=== PATIENT | female | born 1990 | race Caucasian/White ===

== ENCOUNTER 2017-02-10 11:32 | Emergency (ER) | payer OTHER ==
[2017-02-10] MEDS ORDERED: ACETAMINOPHEN TAB 500 MG TAB PO STA (12:14)
[2017-02-10] MEDS ORDERED: IBUPROFEN 600 MG TAB PO STA (12:14)
--- NOTE | 2017-02-10 12:29 | ED ---
ENT HPI - General Chief complaint: ENT Stated complaint: throat pain Time Seen by Provider: 02/10/17 11:59 Source: patient, RN notes reviewed, old records reviewed Mode of arrival: ambulatory Limitations: no limitations - History of Present Illness Initial comments: This is a pleasant 26-year-old female with chief complaint of sore throat and fevers for the past 4 days. She reports that she's noticed some white exudates over her tonsils. She states that she usually gets strep throat twice a year. She states that she has been taking Motrin Tylenol the last dose was at 6 in the morning. Patient reports that she feels very chilled and sweating. Patient states she has no history of sick contacts. Denies any history of mononucleosis. She denies any travel history. Patient denies any recent fever, chills, shortness of breath, chest pain, back pain, abdominal pain, nausea vomiting, numbness or tingling, dysuria or hematuria, constipation or diarrhea, headaches or visual changes, or any other current symptoms - Related Data Home Medications Medication Instructions Recorded Confirmed [id number] Acid 1 tab PO DAILY 05/20/14 06/15/15 [-U Capsule (formulary)] Cephalexin [Keflex] 500 mg PO Q6HR 06/14/15 06/15/15 Previous Rx's Medication Instructions Recorded Acetaminophen-Codeine 300-30mg 2 each PO Q4HR PRN #30 tab 06/17/15 [Tylenol w/codeine #3] Ibuprofen [Motrin] 600 mg PO Q6HR PRN #30 tab 06/17/15 Azithromycin [Zithromax Z-pack] 250 mg PO DIRECTED #6 tab 02/10/17 Allergies Allergy/AdvReac Type Severity Reaction Status Date / Time No Known Allergies Allergy Verified 02/10/17 11:58 Review of Systems ROS Statement: Those systems with pertinent positive or pertinent negative responses have been documented in the HPI. ROS Other: All systems not noted in ROS Statement are negative. Past Medical History Past Medical History: No Reported History Additional Past Medical History / Comment(s): kidney stones and UTI's. Obstetric history: First 2 pregnancies were delivered by . O+, abs neg, Rub Imm, RPR NR, Hep B neg, HIV NR. History of Any Multi-Drug Resistant Organisms: None Reported Past Surgical History: Section Past Anesthesia/Blood Transfusion Reactions: Previous Problems w/ Anesthesia, Postoperative Nausea & Vomiting (PONV) Additional Past Anesthesia/Blood Transfusion Reaction / Comment(s): drop in blood pressure, nausea,vommitting, loss of consciousness Past Psychological History: No Psychological Hx Reported, Anxiety, Depression Smoking Status: Never smoker Past Alcohol Use History: None Reported Past Drug Use History: Marijuana - Past Family History Father Family Medical History: Coronary Artery Disease (CAD) General Exam - General Exam Comments Initial Comments: Pleasant 26-year-old female. No acute distress. Limitations: no limitations General appearance: alert, in no apparent distress Head exam: Present: atraumatic, normocephalic, normal inspection Eye exam: Present: normal appearance, PERRL, EOMI. Absent: scleral icterus, conjunctival injection, periorbital swelling ENT exam: Present: normal exam, mucous membranes moist. Absent: normal oropharynx (Erythematous and enlarged bilateral tonsils. Evidence of light exudates over bilateral tonsils.) Neck exam: Present: normal inspection, lymphadenopathy (Right-sided anterior cervical lymphadenopathy). Absent: tenderness, meningismus Respiratory exam: Present: normal lung sounds bilaterally. Absent: respiratory distress, wheezes, rales, rhonchi, stridor Cardiovascular Exam: Present: regular rate, normal rhythm, normal heart sounds. Absent: systolic murmur, diastolic murmur, rubs, gallop, clicks GI/Abdominal exam: Present: soft, normal bowel sounds. Absent: distended, tenderness, guarding, rebound, rigid Extremities exam: Present: normal inspection, full ROM, normal capillary refill. Absent: tenderness, pedal edema, joint swelling, calf tenderness Back exam: Present: normal inspection Neurological exam: Present: alert, oriented X3, CN II-XII intact Psychiatric exam: Present: normal affect, normal mood Skin exam: Present: warm, dry, intact, normal color. Absent: rash Course Vital Signs 02/10/17 11:54 Temperature 99.8 F H Pulse Rate 119 H Respiratory 18 Rate Blood Pressure 133/90 O2 Sat by Pulse 99 Oximetry Medical Decision Making - Medical Decision Making This is a pleasant 26-year-old female with chief complaint of sore throat and fevers for the past 4 days. She reports that she's noticed some white exudates over her tonsils. She states that she usually gets strep throat twice a year. She states that she has been taking Motrin Tylenol the last dose was at 6 in the morning. Patient reports that she feels very chilled and sweating. No significant enlargement of bilateral tonsils, anterior cervical lymphadenopathy as well as tonsillar exudates. Patient's rapid strep is negative. She was given Motrin and Tylenol for fever as well as a large last water. Patient will be started on azithromycin given clinical presentation. Discussed the possibility of mononucleosis. Discussed to rest, increase fluids and alternate her fever medication. Discussed the importance of following up if symptoms continue to progress or worsen. Patient is history plan will comply. - Lab Data Lab Results 02/10/17 Range/Units 12:17 Group A Strep Rapid Negative (Negative) Disposition Clinical Impression: Pharyngitis Disposition: HOME SELF-CARE Condition: Good Instructions: Mononucleosis (ED), Pharyngitis (ED) Additional Instructions: is to rest, increase fluids. Alternate between Motrin and Tylenol every 4 hours. Patient should complete antibiotic prescription. Return to the emergency department if any alarming signs or symptoms occur. Prescriptions: Azithromycin [Zithromax Z-pack] 250 mg PO DIRECTED #6 tab Referrals: Janeth Lu MD [STAFF PHYSICIAN] - 1-2 days Time of Disposition: 12:34
[2017-02-10] MEDS ORDERED: AZITHROMYCIN 500 MG TAB PO STA (12:41)
[2017-02-10 12:57] VITALS: BP 118/74; PULSE 94; RESP 20; TEMP 98.5
== END 2017-02-10 12:57 | disposition home or self-care (01) ==
LOC: EC 11:32
DX: J02.9 Acute pharyngitis, unspecified (principal)
CPT/HCPCS: 87081; 87430; 99283

== ENCOUNTER 2017-02-14 09:01 | Emergency (ER) | payer OTHER ==
[2017-02-14 09:04] VITALS: RESP 18
--- NOTE | 2017-02-14 09:20 | ED ---
ENT HPI - General Chief complaint: ENT Stated complaint: throat pain Time Seen by Provider: 02/14/17 09:09 Source: patient, RN notes reviewed Mode of arrival: ambulatory Limitations: no limitations - History of Present Illness Initial comments: Patient is 26-year-old female presents to the emergency room for evaluation of throat pain. Patient states she was here on Friday with the same symptoms. Patient states they did a strep test was negative. Patient states she was told it could possibly be mono. Patient states that she was placed on a Z-Conrad. Patient states she's on her last pill today and she still continuing to have increasing throat pain. Patient states that she does not feel well. Patient states been having on and off fevers. Patient states her right tonsil is a lot more enlarged. Patient states the pain is radiating up into her right ear. Patient states she took Tylenol and Motrin last night. Patient states she feels nauseous. Patient states she's having 10 out of 10 pain. Patient denies shortness of breath. Patient denies trouble breathing. - Related Data Home Medications Medication Instructions Recorded Confirmed Azithromycin [Zithromax Z-pack] See Taper PO DIRECTED 02/14/17 02/14/17 Previous Rx's Medication Instructions Recorded Amoxicillin/Potassium Clav 1 each PO Q12HR #20 tab 02/14/17 [Augmentin 875-125 Tablet] predniSONE 50 mg PO DAILY #4 tab 02/14/17 Allergies Allergy/AdvReac Type Severity Reaction Status Date / Time No Known Allergies Allergy Verified 02/14/17 09:17 Review of Systems ROS Statement: Those systems with pertinent positive or pertinent negative responses have been documented in the HPI. ROS Other: All systems not noted in ROS Statement are negative. Past Medical History Past Medical History: No Reported History Additional Past Medical History / Comment(s): kidney stones and UTI's. Obstetric history: First 2 pregnancies were delivered by . O+, abs neg, Rub Imm, RPR NR, Hep B neg, HIV NR. History of Any Multi-Drug Resistant Organisms: None Reported Past Surgical History: Section Past Anesthesia/Blood Transfusion Reactions: Previous Problems w/ Anesthesia, Postoperative Nausea & Vomiting (PONV) Additional Past Anesthesia/Blood Transfusion Reaction / Comment(s): drop in blood pressure, nausea,vommitting, loss of consciousness Past Psychological History: No Psychological Hx Reported, Anxiety, Depression Smoking Status: Never smoker Past Alcohol Use History: None Reported Past Drug Use History: Marijuana - Past Family History Father Family Medical History: Coronary Artery Disease (CAD) General Exam - General Exam Comments Initial Comments: Sitting in exam room, no acute distress. Limitations: no limitations General appearance: alert, in no apparent distress Head exam: Present: atraumatic, normocephalic, normal inspection Eye exam: Present: normal appearance Expanded Throat exam: tonsillomegaly (right, no abscess ) Neck exam: Present: normal inspection Respiratory exam: Present: normal lung sounds bilaterally. Absent: respiratory distress Cardiovascular Exam: Present: normal rhythm, tachycardia, normal heart sounds Extremities exam: Present: normal inspection Back exam: Present: normal inspection Neurological exam: Present: alert, oriented X3, CN II-XII intact Psychiatric exam: Present: normal affect, normal mood Skin exam: Present: warm, dry, intact, normal color. Absent: rash Course Vital Signs 02/14/17 02/14/17 09:01 11:00 Temperature 99.5 F 97 F L Pulse Rate 129 H 110 H Respiratory 18 18 Rate Blood Pressure 145/93 137/74 O2 Sat by Pulse 99 100 Oximetry Medical Decision Making - Medical Decision Making Patient is 26-year-old female presents emergency room for evaluation of throat pain. Patient does have an enlarged right tonsil. Patient was also evaluated by Dr. Leon. No abscess noted at this time. Heterophile negative. Patient be placed on Augmentin and prednisone and advised to follow-up with primary care provider. Patient states she understands everything that was discussed with her. Return parameters discussed. - Lab Data Lab Results 02/14/17 Range/Units 09:30 Heterophile Antibody Negative (Negative) Disposition Clinical Impression: Tonsillitis Disposition: HOME SELF-CARE Condition: Good Instructions: Tonsillitis (ED) Additional Instructions: Take antibiotics as directed. Begin taking prednisone tomorrow. Tylenol or Motrin as needed for pain. Saltwater gargles. Please follow up with primary care provider in 1-2 days. If any new symptom arises or symptoms worsen, return to ER as soon as possible. Prescriptions: Amoxicillin/Potassium Clav [Augmentin 875-125 Tablet] 1 each PO Q12HR #20 tab predniSONE 50 mg PO DAILY #4 tab Referrals: None,Stated [Primary Care Provider] - 1-2 days Time of Disposition: 10:34
[2017-02-14] MEDS ORDERED: predniSONE 50 MG TAB PO STA (09:21)
[2017-02-14] MEDS ORDERED: SODIUM CHLORIDE 0.9% 500 ML IV ONE (09:33)
[2017-02-14 11:01] VITALS: BP 137/74; PULSE 110; TEMP 97
== END 2017-02-14 11:01 | disposition home or self-care (01) ==
LOC: EC 09:01
DX: J03.90 Acute tonsillitis, unspecified (principal); R00.0 Tachycardia, unspecified
CPT/HCPCS: 36415; 86308; 99283; 96360; J7512

== ENCOUNTER → 2018-02-26 | Outpatient (CLI) | payer OTHER ==
--- NOTE | 2018-02-26 10:22 | FL ---
EXAMINATION TYPE: FL UGI air DATE OF EXAM: 02/26/2018 COMPARISON: NONE HISTORY: Left upper quadrant abdominal pain and diarrhea TECHNIQUE: A double contrast UGI study is performed. 1 minute and 49 seconds of fluoroscopy time was utilized with 41 images saved. FINDINGS: The esophagus shows normal motility and emptying into the stomach. No evidence of hiatal hernia or s tricture noted. The stomach shows normal distensibility, peristalsis, with diffusely thickened rugal folds. No evide nce of any mass or ulcer disease. Incidentally noted small duodenal diverticulum is seen. No signific ant gastroesophageal reflux was seen during real time performance of this study. The duodenal bulb, sweep, and proximal small bowel loops are unremarkable. IMPRESSION: 1. Hypertrophic thickened gastric rugal folds most commonly relating to underlying gastritis. No foca l ulceration is identified on this examination. 2. Incidentally noted small duodenal diverticulum.
== END | disposition home or self-care (01) ==
LOC: RADFLMAIN 09:29
PROVIDERS: ATTEND Family Medicine
DX: R93.3 Abnormal findings on diagnostic imaging of other parts of digestive tract (principal)
CPT/HCPCS: 74246

== ENCOUNTER → 2018-04-23 | Outpatient (CLI) | payer OTHER ==
--- NOTE | 2018-04-23 08:46 | CT ---
EXAMINATION TYPE: CT abdomen pelvis w con DATE OF EXAM: 04/23/2018 HISTORY: Lt sided pain, hematuria, diarrhea, nausea and vomiting CT DLP: 475.2mGycm Automated Exposure Control for Dose Reduction was Utilized. CONTRAST: CT scan of the abdomen and pelvis is performed with IV Contrast, patient injected with 100 mL of Isov ue 300. COMPARISON: None. FINDINGS: LUNG BASES: There is a calcified benign right granuloma in the posterior basilar segment other right lower lobe. LIVER/GB: No focal mass identified. No cholelithiasis. PANCREAS: No significant abnormality is seen. No ductal dilatation. SPLEEN: No splenomegaly. ADRENALS: No nodularity or thickening. KIDNEYS: There is a 1.0 cm right renal cyst and multiple bilateral renal sinus cysts, left greater th an right. No hydronephrosis.. BOWEL: Incidental note is made of an enteroentero-(small bowel to small bowel) intussusception marked on axial series 3 image 48 and coronal series 7 image 28. This is typically an incidental finding an d results without treatment. However a second site of intussusception is seen within the left upper q uadrant on series 3 image 44 and series 7 image 42 within small bowel. No dilated small bowel or larg e bowel to suggest obstruction. Focal small bowel wall thickening is seen proximally measuring up to 9 mm. Additionally the majority of the small bowel is present within the midline and left abdomen. Te rminal ileum is largely decompressed and therefore limits evaluation of bowel wall thickening, howeve r there is suspicion for bowel wall thickening as contrast is seen proximal and distal to this and johanna wel loops that do not demonstrate bowel wall thickening. No right lower quadrant inflammatory fat str anding is seen. UTERUS/ADNEXA: Approximately 3.7 cm cystic right adnexal lesion is noted that could be further evalua joanne with ultrasound although likely represents a physiologic cyst in this patient's age group. LYMPH NODES: No greater than 1cm abdominal or pelvic lymph nodes are appreciated. OSSEOUS STRUCTURES: No significant abnormality is seen. Punctate probable bone island is present with in the left anterior inferior iliac spine. IMPRESSION: 1. Two sites of small bowel to small bowel intussusception within the left mid abdomen and upper quad rant, most commonly an incidental finding and typically transient. However there is small bowel wall thickening noted and this could represent a lead point from inflammatory or infectious etiology. Much less likely consideration are for other etiologies such as small bowel lymphoma or GIST tumors. Herber elation for inflammatory bowel disease is recommended as a terminal ileum is decompressed and poorly evaluated. 2. 3.7 cm right adnexal lesion, likely physiologic cyst in this patient's age group. If there is furt her concern pelvic ultrasound could be performed.
== END | disposition home or self-care (01) ==
LOC: RADCTMAIN 06:55
PROVIDERS: ATTEND Family Medicine
DX: K56.1 Intussusception (principal); K63.89 Other specified diseases of intestine; N85.9 Noninflammatory disorder of uterus, unspecified; Z88.8 Allergy status to other drugs, medicaments and biological substances
CPT/HCPCS: 74177; Q9967

== ENCOUNTER 2018-10-23 06:59 | Emergency (ER) | payer OTHER ==
[2018-10-23 07:08] VITALS: TEMP 98.3
[2018-10-23 08:11] LABS: Appearance,Urine Cloudy (Clear); Bacteria,Urine Many /hpf; Bilirubin,Urine Negative (Negative); Blood,Urine Small (Negative); Color,Urine Yellow; Glucose,Urine (UA) Negative (Negative); Ketones,Urine 1+ (Negative); Leukocyte Esterase,Urine Large (Negative); Mucus,Urine Moderate /hpf; Nitrite,Urine Positive (Negative); Protein,Urine 1+ (Negative); RBC,Urine 44 /hpf (0-5); Specific Gravity,Urine 1.013 (1.001-1.035); Squamous Epithelial Cell,Urine 14 /hpf (0-4); Urobilinogen,Urine <2.0 mg/dL (<2.0); WBC,Urine >182 /hpf (0-5)
[2018-10-23 08:20] LABS: Basophils % (A) 0 %; Eosinophils # (A) 0.1 k/uL (0-0.7); Eosinophils % (A) 2 %; HCT 40.5 % (34.0-46.0); HGB 13.6 gm/dL (11.4-16.0); Lymphocytes # (A) 1.4 k/uL (1.0-4.8); Lymphocytes % (A) 17 %; MCHC 33.5 g/dL (31.0-37.0); MCV 95.3 fL (80.0-100.0); Mean Platelet Volume 6.8; Monocytes # (A) 0.3 k/uL (0-1.0); Monocytes % (A) 4 %; Neutrophils # (A) 5.9 k/uL (1.3-7.7); Neutrophils % (A) 75 %; Platelet Count 331 k/uL (150-450); RBC 4.25 m/uL (3.80-5.40); RDW 12.4 % (11.5-15.5); WBC 7.9 k/uL (3.8-10.6)
[2018-10-23 08:32] LABS: ALT 36 U/L (9-52); AST 21 U/L (14-36); Albumin 4.4 g/dL (3.5-5.0); Alkaline Phosphatase 77 U/L (38-126); Anion Gap 10 mmol/L; Blood Urea Nitrogen 9 mg/dL (7-17); Calcium 9.6 mg/dL (8.4-10.2); Carbon Dioxide 22 mmol/L (22-30); Chloride 107 mmol/L (98-107); Glucose 95 mg/dL (74-99); Potassium 3.9 mmol/L (3.5-5.1); Sodium 139 mmol/L (137-145); Total Bilirubin 0.9 mg/dL (0.2-1.3); Total Protein 7.3 g/dL (6.3-8.2)
[2018-10-23] MEDS: diphenhydrAMINE 50 MG/ML 1 ML VIAL IVP STA (08:40)
[2018-10-23] MEDS: PYRIDOXINE 100 MG/ML 1 ML VIAL IVP STA (08:42)
[2018-10-23] MEDS: SODIUM CHLORIDE 0.9% 1,000 ML IV ONE (08:42)
--- NOTE | 2018-10-23 09:14 | ED ---
Abdominal Pain HPI - General Chief Complaint: Abdominal Pain Stated Complaint: abd pain, 9wks Time Seen by Provider: 10/23/18 07:19 Source: patient Mode of arrival: ambulatory Limitations: no limitations - History of Present Illness Complaint: abdominal pain -: days(s) Location: suprapubic Radiation: suprapubic Migration to: no migration Severity: mild Severity scale (1-10): 2 Quality: cramping Consistency: intermittent Improves With: nothing Worsens With: nothing Associated Symptoms: nausea, vomiting - Related Data Patient : Yes Home Medications Medication Instructions Recorded Confirmed [id number] Acid 1 cap PO HS 10/23/18 10/23/18 [-U Capsule (formulary)] Previous Rx's Medication Instructions Recorded Cephalexin [Keflex] 500 mg PO Q6HR #52 cap 10/23/18 Allergies Allergy/AdvReac Type Severity Reaction Status Date / Time No Known Allergies Allergy Verified 10/23/18 08:05 Review of Systems ROS Statement: Those systems with pertinent positive or pertinent negative responses have been documented in the HPI. ROS Other: All systems not noted in ROS Statement are negative. Past Medical History Past Medical History: No Reported History Additional Past Medical History / Comment(s): kidney stones and UTI's. Obstetric history: First 2 pregnancies were delivered by . O+, abs neg, Rub Imm, RPR NR, Hep B neg, HIV NR. History of Any Multi-Drug Resistant Organisms: None Reported Past Surgical History: Section Past Anesthesia/Blood Transfusion Reactions: Previous Problems w/ Anesthesia, Postoperative Nausea & Vomiting (PONV) Additional Past Anesthesia/Blood Transfusion Reaction / Comment(s): drop in blood pressure, nausea,vommitting, loss of consciousness Past Psychological History: No Psychological Hx Reported, Anxiety, Depression Smoking Status: Never smoker Past Alcohol Use History: None Reported Past Drug Use History: Marijuana - Past Family History Father Family Medical History: Coronary Artery Disease (CAD) General Exam Limitations: no limitations General appearance: alert, in no apparent distress Head exam: Present: atraumatic, normocephalic, normal inspection Eye exam: Present: normal appearance, PERRL, EOMI. Absent: scleral icterus, conjunctival injection, periorbital swelling ENT exam: Present: normal exam, mucous membranes moist Neck exam: Present: normal inspection. Absent: tenderness, meningismus, lymphadenopathy Respiratory exam: Present: normal lung sounds bilaterally. Absent: respiratory distress, wheezes, rales, rhonchi, stridor Cardiovascular Exam: Present: regular rate, normal rhythm, normal heart sounds. Absent: systolic murmur, diastolic murmur, rubs, gallop, clicks GI/Abdominal exam: Present: soft, normal bowel sounds. Absent: distended, tenderness, guarding, rebound, rigid Extremities exam: Present: normal inspection, full ROM, normal capillary refill. Absent: tenderness, pedal edema, joint swelling, calf tenderness Back exam: Present: normal inspection Neurological exam: Present: alert, oriented X3, CN II-XII intact Psychiatric exam: Present: normal affect, normal mood Skin exam: Present: warm, dry, intact, normal color. Absent: rash Course Vital Signs 10/23/18 07:04 Temperature 98.3 F Pulse Rate 95 Respiratory 16 Rate Blood Pressure 133/88 O2 Sat by Pulse 98 Oximetry Medical Decision Making - Lab Data Result diagrams: 10/23/18 07:45 10/23/18 07:45 Lab Results 10/23/18 10/23/18 10/23/18 Range/Units 07:45 07:45 07:45 WBC 7.9 (3.8-10.6) k/uL RBC 4.25 (3.80-5.40) m/uL Hgb 13.6 (11.4-16.0) gm/dL Hct 40.5 (34.0-46.0) % MCV 95.3 (80.0-100.0) fL MCH 32.0 (25.0-35.0) pg MCHC 33.5 (31.0-37.0) g/dL RDW 12.4 (11.5-15.5) % Plt Count 331 (150-450) k/uL Neutrophils % 75 % Lymphocytes % 17 % Monocytes % 4 % Eosinophils % 2 % Basophils % 0 % Neutrophils # 5.9 (1.3-7.7) k/uL Lymphocytes # 1.4 (1.0-4.8) k/uL Monocytes # 0.3 (0-1.0) k/uL Eosinophils # 0.1 (0-0.7) k/uL Basophils # 0.0 (0-0.2) k/uL Sodium (137-145) mmol/L Potassium (3.5-5.1) mmol/L Chloride (98-107) mmol/L Carbon Dioxide (22-30) mmol/L Anion Gap mmol/L BUN (7-17) mg/dL Creatinine (0.52-1.04) mg/dL Est GFR (CKD-EPI)AfAm (>60 ml/min/1.73 sqM) Est GFR (CKD-EPI)NonAf (>60 ml/min/1.73 sqM) Glucose (74-99) mg/dL Calcium (8.4-10.2) mg/dL Total Bilirubin (0.2-1.3) mg/dL AST (14-36) U/L ALT (9-52) U/L Alkaline Phosphatase (38-126) U/L Total Protein (6.3-8.2) g/dL Albumin (3.5-5.0) g/dL HCG, Quant mIU/mL Urine Color Yellow Urine Appearance Cloudy H (Clear) Urine pH 6.0 (5.0-8.0) Ur Specific Benedict 1.013 (1.001-1.035) Urine Protein 1+ H (Negative) Urine Glucose (UA) Negative (Negative) Urine Ketones 1+ H (Negative) Urine Blood Small H (Negative) Urine Nitrite Positive H (Negative) Urine Bilirubin Negative (Negative) Urine Urobilinogen <2.0 (<2.0) mg/dL Ur Leukocyte Esterase Large H (Negative) Urine RBC 44 H (0-5) /hpf Urine WBC >182 H (0-5) /hpf Urine WBC Clumps Many H (None) /hpf Ur Squamous Epith Cells 14 H (0-4) /hpf Urine Bacteria Many H (None) /hpf Urine Mucus Moderate H (None) /hpf Blood Type O Positive Blood Type Recheck No 10/23/18 Range/Units 07:45 WBC (3.8-10.6) k/uL RBC (3.80-5.40) m/uL Hgb (11.4-16.0) gm/dL Hct (34.0-46.0) % MCV (80.0-100.0) fL MCH (25.0-35.0) pg MCHC (31.0-37.0) g/dL RDW (11.5-15.5) % Plt Count (150-450) k/uL Neutrophils % % Lymphocytes % % Monocytes % % Eosinophils % % Basophils % % Neutrophils # (1.3-7.7) k/uL Lymphocytes # (1.0-4.8) k/uL Monocytes # (0-1.0) k/uL Eosinophils # (0-0.7) k/uL Basophils # (0-0.2) k/uL Sodium 139 (137-145) mmol/L Potassium 3.9 (3.5-5.1) mmol/L Chloride 107 (98-107) mmol/L Carbon Dioxide 22 (22-30) mmol/L Anion Gap 10 mmol/L BUN 9 (7-17) mg/dL Creatinine 0.69 (0.52-1.04) mg/dL Est GFR (CKD-EPI)AfAm >90 (>60 ml/min/1.73 sqM) Est GFR (CKD-EPI)NonAf >90 (>60 ml/min/1.73 sqM) Glucose 95 (74-99) mg/dL Calcium 9.6 (8.4-10.2) mg/dL Total Bilirubin 0.9 (0.2-1.3) mg/dL AST 21 (14-36) U/L ALT 36 (9-52) U/L Alkaline Phosphatase 77 (38-126) U/L Total Protein 7.3 (6.3-8.2) g/dL Albumin 4.4 (3.5-5.0) g/dL HCG, Quant 19138.9 mIU/mL Urine Color Urine Appearance (Clear) Urine pH (5.0-8.0) Ur Specific Benedict (1.001-1.035) Urine Protein (Negative) Urine Glucose (UA) (Negative) Urine Ketones (Negative) Urine Blood (Negative) Urine Nitrite (Negative) Urine Bilirubin (Negative) Urine Urobilinogen (<2.0) mg/dL Ur Leukocyte Esterase (Negative) Urine RBC (0-5) /hpf Urine WBC (0-5) /hpf Urine WBC Clumps (None) /hpf Ur Squamous Epith Cells (0-4) /hpf Urine Bacteria (None) /hpf Urine Mucus (None) /hpf Blood Type Blood Type Recheck Disposition Clinical Impression: Urinary tract infection, Abdominal pain affecting Disposition: HOME SELF-CARE Condition: Good Instructions (If sedation given, give patient instructions): Urinary Tract Infection in Women (ED) Prescriptions: Cephalexin [Keflex] 500 mg PO Q6HR #52 cap Referrals: Miracle Beth DO [Doctor of Osteopathic Medicine] - 1-2 days
[2018-10-23 09:19] LABS: HCG,Quantitative Serum 44361.9 mIU/mL
--- NOTE | 2018-10-23 09:44 | US ---
EXAMINATION TYPE: Transabdominal DATE OF EXAM: 12/16/17 COMPARISON: NONE CLINICAL HISTORY: Pain. Abdomen pain x 5 days, 4, para 3, history of 3 . EXAM PERFORMED: Transabdominal (TA) EXAM MEASUREMENTS: GESTATIONAL AGE / DATING Physician Established: ( 9 weeks/1 days) EDC: 05/27/2019 Dates by LMP: (9 weeks/1 days) EDC: 05/27/2019 Dates by First Scan: This is 1st scan Dates by Current Scan for: ( 6 weeks/0 days) EDC: 06/18/2019 MATERNAL ANATOMY Uterus: 9.2 x 6.0 x 6.8cm, anteverted Right Ovary: 3.2 x 2.1 x 2.8cm Left Ovary: 3.9 x 2.3 x 2.9cm Post CDS / Adnexa: wnl Presence of free fluid: no Presence of corpus luteal cyst: right ovary: 2.0 x 1.1 x 1.4cm hypoechoic, either relating to a folli josesito or corpus luteal cyst. left ovary: 3.2 x 1.2 x 1.5cm hypoechoic area, either relating to a folli josesito or corpus luteal cyst. Presence of subchorionic bleed: 1.7 x 0.8 x 1.8cm complex area superior to gestational sac GESTATION / SURVEY CRL: 0.4cm (6 weeks/0 days) Yolk Sac (normal less than 6mm): 3.6mm Heart Rate: 113 bpm Rhythm: Normal IUP: Viable IUP Date of LMP: 08/20/2018 Beta HcG (if available): 44,361.9 IMPRESSION: 1. Single live intrauterine with a calculated sonographic age of 6 weeks and 0 days and est imated date of delivery of 06/18/2019, discordant with menstrual age and physician established dates. Heart rate of 113 bpm is within normal limits. 2. 1.7 cm oriented occupying just over 25% the gestational sac diameter.
[2018-10-23 09:54] VITALS: RESP 18
[2018-10-23 12:23] VITALS: BP 124/70; PULSE 74
== END 2018-10-23 12:20 | disposition home or self-care (01) ==
LOC: EC 06:59
DX: O23.41 Unspecified infection of urinary tract in pregnancy, first trimester (principal); O99.89 Other specified diseases and conditions complicating pregnancy, childbirth and the puerperium; R10.9 Unspecified abdominal pain; O21.9 Vomiting of pregnancy, unspecified; Z3A.09 9 weeks gestation of pregnancy
CPT/HCPCS: 36415; 86900; 86901; 80053; 85025; 81001; 84702; 87086; 76801; 99284; 96365; 96375 ×2; 96361; J1200; J3415; J0696

== ENCOUNTER → 2019-04-03 | Outpatient (CLI) | payer OTHER | END | disposition home or self-care (01) | LOC: LABWHC1 08:34 | PROVIDERS: ATTEND Obstetrics & Gynecology | DX: Z34.82 Encounter for supervision of other normal pregnancy, second trimester (principal) | CPT/HCPCS: 36415; 82950 ==

== ENCOUNTER 2019-04-24 13:17 | Outpatient (CLI) | payer OTHER ==
[2019-04-24 13:47] LABS: Appearance,Urine Cloudy (Clear); Bacteria,Urine Rare /hpf; Bilirubin,Urine Negative (Negative); Blood,Urine Negative (Negative); Color,Urine Yellow; Glucose,Urine (UA) Negative (Negative); Ketones,Urine Negative (Negative); Leukocyte Esterase,Urine Large (Negative); Nitrite,Urine Negative (Negative); Protein,Urine Trace (Negative); RBC,Urine 3 /hpf (0-5); Specific Gravity,Urine 1.013 (1.001-1.035); Squamous Epithelial Cell,Urine 3 /hpf (0-4); Urobilinogen,Urine <2.0 mg/dL (<2.0); WBC,Urine 92 /hpf (0-5)
[2019-04-24 14:12] LABS: Amphetamine Screen,Urine Not Detected (NotDetected); Barbiturate Screen,Urine Not Detected (NotDetected); Benzodiazepines Screen,Urine Not Detected (NotDetected); Cocaine Screen,Urine Not Detected (NotDetected); Methadone Screen, Urine Not Detected (NotDetected); Opiate Screen,Urine Not Detected (NotDetected); Oxycodone Screen, Urine Not Detected (NotDetected); Phencyclidine Screen,Urine Not Detected (NotDetected); Tricyclic Antidepressant,Urine Not Detected (NotDetected); Urn Cannabinoid Scrn Detected (NotDetected)
--- NOTE | 2019-04-24 14:42 | P.PNOBGAP ---
Subjective - Subjective Principal diagnosis: Intrauterine with back pain Interval history: Janeth is a 28-year-old female 32 weeks gestation who arrives to labor and delivery complaining of back pain. She has a history of urinary tract infection was treated for bladder infection approximate 1 month ago. She also complains of persistent nausea and emesis which is been going on throughout the . She does relate a history of to marijuana use and she smokes 2-3 times a day. We did review that there is no safe amount considered for and marijuana use. We also reviewed that if she is smoking that much she may be suffering from hyperemesis due to the marijuana and not to the as she is 32 weeks and it is unusual that she would have hyperemesis at this stage. She also relates that she takes a lot of warm baths and that this does help with nausea which is while not pathognomonic for hyperemesis of cannabinoid it is certainly very consistent with this disease process. It is also possible however that she has emesis today and last couple days due to persistent bladder infection. She has no costovertebral flank tenderness no fever no chills and I think pyelonephritis is unlikely. We will start her on amoxicillin as it was sensitive to amoxicillin at her culture earlier in March. And will defer to a culture and sensitivity if changes need to be made. No other problems or concerns this time. We'll discharged home in stable and satisfactory condition. Ultrasound of the kidneys was performed and was unremarkable. Antepartum ROS: Reports other (Back pain) Objective - Vital Signs Vital Signs: Intake and Output 04/23/19 04/24/19 04/24/19 22:59 06:59 14:59 Other: Weight 75.296 kg - Exam Abdomen: Present: normal appearance, soft. Absent: distention, tenderness Uterus: Present: normal Cervical dilation: Closed and thick - Labs Labs: Abnormal Labs 04/24/19 04/24/19 13:30 13:30 Urine Appearance Cloudy H Urine Protein Trace H Ur Leukocyte Esterase Large H Urine WBC 92 H Urine Bacteria Rare H U Marijuana (THC) Screen Detected H Assessment and Plan Plan: Antibiotics for 90 white blood cells in her urine
--- NOTE | 2019-04-24 15:39 | US ---
EXAMINATION TYPE: US kidneys/renal and bladder DATE OF EXAM: 04/24/2019 COMPARISON: NONE CLINICAL HISTORY: rule out kidney stones, lower back pain. LLQ pain hx of kidney stones. EXAM MEASUREMENTS: Right Kidney: 11 x 5.2 x 5.2 cm Left Kidney: 11.8 x 5.6 x 5.8 cm Right Kidney: Multiple echogenic areas no hydronephrosis seen. Left Kidney: Multiple echogenic areas no hydronephrosis seen. Bladder: Not fully distended. Bilateral Jets seen: No There is no evidence for hydronephrosis at this point in time. The urinary bladder is anechoic. IMPRESSION: Increased echogenicity of the renal medulla bilaterally consistent with a form of medullary sponge ki dney and multiple calcifications. No renal obstruction. No significant renal atrophy.
== END 2019-04-24 15:04 | disposition home or self-care (01) ==
LOC: FBPOP 13:17
PROVIDERS: ATTEND Obstetrics & Gynecology
DX: O99.89 Other specified diseases and conditions complicating pregnancy, childbirth and the puerperium (principal); O21.2 Late vomiting of pregnancy; O99.333 Smoking (tobacco) complicating pregnancy, third trimester; F17.200 Nicotine dependence, unspecified, uncomplicated; M54.9 Dorsalgia, unspecified; Z3A.32 32 weeks gestation of pregnancy; Z79.2 Long term (current) use of antibiotics
CPT/HCPCS: 59025; 81001; 80306; 87086; 76770; G0463; 87077; 87186; 99213

== ENCOUNTER 2019-06-11 05:52 | Inpatient (IN) | payer OTHER ==
--- NOTE | 2019-06-10 16:51 | P.HPOB ---
History of Present Illness H&P Date: 06/10/19 Chief Complaint: repeat 28-year-old presents for repeat low transverse . Review of Systems All systems: negative Constitutional: Denies chills, Denies fever Eyes: denies blurred vision, denies pain Ears, nose, mouth and throat: Denies headache, Denies sore throat Cardiovascular: Denies chest pain, Denies shortness of breath Respiratory: Denies cough Gastrointestinal: Denies abdominal pain, Denies diarrhea, Denies nausea, Denies vomiting Genitourinary: Denies dysuria, Denies hematuria Musculoskeletal: Denies myalgias Integumentary: Denies pruritus, Denies rash Neurological: Denies numbness, Denies weakness Psychiatric: Denies anxiety, Denies depression Endocrine: Denies fatigue, Denies weight change Past Medical History Past Medical History: No Reported History Additional Past Medical History / Comment(s): kidney stones and UTI's. Ob stetric history: She's had 3 previous sections History of Any Multi-Drug Resistant Organisms: None Reported Past Surgical History: Section Additional Past Surgical History / Comment(s): C/S x 3 Past Anesthesia/Blood Transfusion Reactions: Previous Problems w/ Anesthesia, Motion Sickness, Postoperative Nausea & Vomiting (PONV) Additional Past Anesthesia/Blood Transfusion Reaction / Comment(s): (drop in blood pressure, nausea,vommiting, loss of consciousness-pt not aware if these reactions other than nausea), motion sickness as child Smoking Status: Never smoker - Past Family History Father Family Medical History: Coronary Artery Disease (CAD) Medications and Allergies Home Medications Medication Instructions Recorded Confirmed Type Ydw-[id number]-Ccpkk Acid 1 cap PO HS 10/23/18 06/09/19 History [-U Capsule (formulary)] Cephalexin [Keflex] 500 mg PO BID 06/09/19 06/09/19 History Allergies Allergy/AdvReac Type Severity Reaction Status Date / Time No Known Allergies Allergy Verified 06/09/19 15:52 Exam Osteopathic Statement: *. No significant issues noted on an osteopathic structural exam other than those noted in the History and Physical/Consult. Heart: Regular rate and rhythm Lungs: Clear to auscultation bilaterally Abdomen: Soft, nontender Extremities: Negative Homans sign Assessment and Plan (1) Previous section Status: Acute Code(s): Z98.891 - HISTORY OF UTERINE SCAR FROM PREVIOUS SURGERY SNOMED Code(s): 372912033 Plan: 1. Repeat low transverse
[2019-06-11] MEDS ORDERED: CITRIC ACID-SODIUM CITRATE 15 ML CUP PO ONE (06:04)
[2019-06-11 06:08] LABS: Glucose,Whole Blood 88 mg/dL (75-99)
[2019-06-11 06:13] VITALS: BMI 32.1
[2019-06-11] MEDS: LACTATED RINGERS 1,000 ML IV SCH ×3 (06:15→18:20)
[2019-06-11 06:34] LABS: Anisocytosis Slight; Basophils % (A) 0 %; Eosinophils # (A) 0.2 k/uL (0-0.7); Eosinophils % (A) 2 %; HCT 31.6 % (34.0-46.0); HGB 10.5 gm/dL (11.4-16.0); Hypochromasia Slight; Lymphocytes % (A) 17 %; MCH 29.3 pg (25.0-35.0); MCHC 33.3 g/dL (31.0-37.0); MCV 87.8 fL (80.0-100.0); Mean Platelet Volume 6.5; Monocytes # (A) 0.4 k/uL (0-1.0); Monocytes % (A) 3 %; Neutrophils # (A) 8.9 k/uL (1.3-7.7); Neutrophils % (A) 76 %; Platelet Count 461 k/uL (150-450); RDW 16.6 % (11.5-15.5); WBC 11.6 k/uL (3.8-10.6)
[2019-06-11] MEDS ORDERED: ONDANSETRON 4 MG/2 ML VIAL ONE (07:57)
[2019-06-11] MEDS ORDERED: MORPHINE SULFATE (PF) 0.3 MG/0.3 ML SYR ONE (07:57)
[2019-06-11] MEDS ORDERED: HYDROmorphone (PF) 1 MG/ML ONE (07:57)
[2019-06-11] MEDS ORDERED: NALBUPHINE 10 MG/ML (1 ML AMP) ONE (07:57)
[2019-06-11] MEDS ORDERED: OXYTOCIN 10 UNIT/ML 1 ML VIAL ONE (07:57)
[2019-06-11] MEDS ORDERED: ePHEDrine SULFATE/0.9% NACL/PF 50 MG/5 ML SYRINGE IV ONE (07:57)
[2019-06-11] MEDS ORDERED: SIMETHICONE 80 MG CHEWABLE PO PRN (08:48)
[2019-06-11] MEDS ORDERED: diphenhydrAMINE 50 MG CAP PO PRN (08:48)
[2019-06-11] MEDS ORDERED: NALOXONE 0.4 MG/ML 1 ML VIAL IV PRN (08:48)
[2019-06-11] MEDS ORDERED: METOCLOPRAMIDE 5 MG/ML 2 ML VIAL IVP PRN (08:48)
[2019-06-11] MEDS ORDERED: ACETAMINOPHEN TAB 325 MG TAB PO PRN (08:48)
[2019-06-11] MEDS ORDERED: diphenhydrAMINE 25 MG CAP PO PRN (08:48)
[2019-06-11] MEDS ORDERED: diphenhydrAMINE 50 MG/ML 1 ML VIAL IVP PRN ×2 (08:48→12:16)
[2019-06-11] MEDS ORDERED: LANOLIN CREAM 5 GM TUBE TOPICAL PRN (08:48)
[2019-06-11] MEDS ORDERED: ZOLPIDEM 5 MG TAB PO PRN (08:48)
[2019-06-11] MEDS ORDERED: ONDANSETRON 4 MG/2 ML VIAL IVP PRN (08:48)
[2019-06-11] MEDS ORDERED: OXYTOCIN 20 UNITS/1000 ML NS 1,000 ML IV SCH (09:00)
--- NOTE | 2019-06-11 09:20 | P.OP ---
Date of Procedure: 06/11/19 Preoperative Diagnosis: 1. at 39 weeks 2. Previous section Postoperative Diagnosis: 1. at 39 weeks 2. Previous section Procedure(s) Performed: Repeat low transverse Anesthesia: spinal Surgeon: Miracle Beth Senior Core Java Developer #1: Elena Patel Estimated Blood Loss (ml): 300 IV fluids (ml): 500 Urine output (ml): 100 Pathology: none sent Condition: stable Disposition: floor Operative Findings: Viable male, Apgars 8, 9, weight 8 lbs. 9 oz. Normal uterus tubes and ovaries. Description of Procedure: Patient was taken to the operating room where spinal anesthesia was found be adequate. She was prepped and draped in normal sterile fashion in dorsal supine position with a leftward tilt. Pfannenstiel skin incision was made the scalpel and carried through to the underlying layer of fascia with the scalpel. Fascia was incised in midline and carried bilaterally with the Woodard scissors. The superior aspect of the fascial incision was grasped with Bucyrus clamps elevated and the underlying rectus muscles dissected off with the Woodard's. Attention was then turned to inferior aspect of same incision which in a similar fashion was grasped tented up and the underlying rectus muscles dissected off with the Woodard's. The rectus muscles were the midline and the peritoneum was identified tented up and entered sharply with the scalpel. The incision was extended superiorly and inferiorly with good visualization of the bladder. The bladder blade was inserted and the vesicouterine peritoneum was incised the Metzenbaums then carried bilaterally and bladder flap created digitally. A low transverse incision was then made on the uterus with the scalpel. This was carried bilaterally and digital manner. 's head delivered atraumatically, nose and mouth bulb suctioned, cord clamped and cut, infant handed off to waiting nurses. Apgars 8,9, weight 8 lbs. 9 oz. Placenta delivered manually, intact with three-vessel cord. The uterus is exteriorized and cleared of all clots and debris. The uterine incision was closed with 0 Vicryl in a running locked fashion. Second layer of the same sutures used in imbricating fashion to obtain excellent hemostasis. Bladder flap was then reapproximated using 2-0 Vicryl in a running fashion. Both ovaries and tubes appeared normal. The uterus was placed back into the abdomen. The peritoneum was reapproximated using 2-0 Vicryl in a running fashion. The fascia was reapproximated using 0 Vicryl in a running fashion. The subcutaneous tissues closed with 3-0 Vicryl running fashion. The skin was closed haseeb. Patient tolerated the procedure well, sponge and instrument counts were correct times 2 and she was taken to the recovery room in stable condition.
[2019-06-11] MEDS ORDERED: Rhogam IMMUNE GLOBULIN 1,500 UNIT/1 ML IM ONE (10:00)
[2019-06-11] MEDS: diphenhydrAMINE 50 MG/ML 1 ML VIAL IVP PRN ×2 (10:40→18:14)
[2019-06-11 12:04] LABS: Appearance,Urine Clear (Clear); Bilirubin,Urine Negative (Negative); Blood,Urine Negative (Negative); Color,Urine Light Yellow; Glucose,Urine (UA) Negative (Negative); Ketones,Urine 1+ (Negative); Leukocyte Esterase,Urine Negative (Negative); Nitrite,Urine Negative (Negative); PH, Urine 7.5 (5.0-8.0); Protein,Urine Negative (Negative); Specific Gravity,Urine 1.009 (1.001-1.035); Urobilinogen,Urine <2.0 mg/dL (<2.0)
[2019-06-11] MEDS ORDERED: NALBUPHINE 10 MG/ML (1 ML AMP) IV PRN (12:16)
[2019-06-11] MEDS ORDERED: HYDROmorphone 1 MG/ML 1 ML SYRINGE IVP PRN (12:16)
[2019-06-11 13:17] LABS: ALT 18 U/L (9-52); AST 23 U/L (14-36); African American GFR (CKD) >90 (>60 ml/min/1.73 sqM); Blood Urea Nitrogen 5 mg/dL (7-17); LDH 535 U/L (313-618); Uric Acid 4.2 mg/dL (3.7-7.4)
[2019-06-11] MEDS: KETOROLAC 30 MG/ML 1 ML VIAL IVP PRN (23:05)
[2019-06-12 07:22] LABS: Anisocytosis Slight; Basophils % (A) 0 %; Eosinophils # (A) 0.2 k/uL (0-0.7); Eosinophils % (A) 1 %; HCT 28.2 % (34.0-46.0); HGB 9.6 gm/dL (11.4-16.0); Hypochromasia Slight; Lymphocytes # (A) 1.5 k/uL (1.0-4.8); Lymphocytes % (A) 10 %; MCH 30.3 pg (25.0-35.0); MCHC 34.2 g/dL (31.0-37.0); MCV 88.5 fL (80.0-100.0); Mean Platelet Volume 6.7; Monocytes # (A) 0.5 k/uL (0-1.0); Monocytes % (A) 4 %; Neutrophils # (A) 12.5 k/uL (1.3-7.7); Neutrophils % (A) 84 %; Platelet Count 399 k/uL (150-450); RBC 3.19 m/uL (3.80-5.40); WBC 14.9 k/uL (3.8-10.6)
[2019-06-12] MEDS: KETOROLAC 30 MG/ML 1 ML VIAL IVP PRN (09:16)
[2019-06-12] MEDS: SENNOSIDES-DOCUSATE SODIUM 1 EACH TAB PO SCH ×3 (09:16→19:29)
[2019-06-12] MEDS: IBUPROFEN 600 MG TAB PO PRN ×2 (09:39→15:26)
--- NOTE | 2019-06-12 12:10 | P.PNOBGPC ---
Subjective - Subjective Principal diagnosis: Postop day 1 Interval history: Janeth is doing very well postop day 1. She is involuting, voiding and tolerating her diet. She voices no complaints. Vital signs are stable and afebrile. Patient reports: Reports appetite normal, Reports voiding normally, Reports pain well controlled, Reports ambulating normally [place]: doing well Objective - Vital Signs Latest vital signs: Vital Signs Temp Pulse Resp BP Pulse Ox 06/12/19 10:00 96 99 06/12/19 08:45 98.0 F 101 H 18 124/69 99 06/12/19 08:00 98.0 F 101 H 18 124/69 99 06/12/19 06:00 16 99 06/12/19 04:00 98.1 F 103 H 16 125/77 99 06/12/19 02:00 16 99 06/12/19 00:00 98.1 F 95 16 125/68 98 06/11/19 22:00 16 99 06/11/19 20:00 98 F 98 16 125/77 98 06/11/19 18:00 18 98 06/11/19 15:58 98.3 F 103 H 18 137/89 100 06/11/19 15:57 98.3 F 103 H 18 137/89 100 06/11/19 14:00 98 16 97 Intake and Output 06/11/19 06/12/19 06/12/19 22:59 06:59 14:59 Intake Total 100 Output Total 2200 0 Balance -2200 100 0 Intake: Oral 100 Output: Urine 1700 Stool 0 Emesis 500 Other: # Voids 1 1 - Exam Lungs: bilateral: normal Chest: Normal S1, Normal S2 Extremities: Present: normal Abdomen: Present: normal appearance, soft. Absent: distention, tenderness Incision: Present: normal, dry, intact Uterus: Present: normal, firm - Labs Labs: Abnormal Lab Results - Last 24 Hours (Table) 06/11/19 06/11/19 06/12/19 Range/Units 11:45 12:03 06:50 WBC 14.9 H (3.8-10.6) k/uL RBC 3.19 L (3.80-5.40) m/uL Hgb 9.6 L (11.4-16.0) gm/dL Hct 28.2 L (34.0-46.0) % RDW 17.0 H (11.5-15.5) % Neutrophils # 12.5 H (1.3-7.7) k/uL BUN 5 L (7-17) mg/dL U Random Total Protein 19 H (<12) mg/dL
--- NOTE | 2019-06-12 19:41 | P.PN ---
Progress Note - Text Progress Note Date: 06/12/19 post op day one status post C/S under spinal anesthesia ,intrathecal morphin give for post op analgesia, she is doing well, there is no anesthesia related complications
[2019-06-12] MEDS: HYDROcodone/APAP 7.5-325MG 1 EACH TAB PO PRN (23:14)
[2019-06-13] MEDS: IBUPROFEN 600 MG TAB PO PRN (05:14)
[2019-06-13] MEDS: SENNOSIDES-DOCUSATE SODIUM 1 EACH TAB PO SCH (08:24)
[2019-06-13] MEDS: HYDROcodone/APAP 7.5-325MG 1 EACH TAB PO PRN (08:25)
--- NOTE | 2019-06-13 10:13 | P.DS ---
Providers Date of admission: 06/11/19 05:52 Expected date of discharge: 06/13/19 Attending physician: Miracel Beth Primary care physician: Stated None Hospital Course: Janeth is doing very well postop day 2. She is ambulating, voiding and tolerating her diet. She voices no complaints. Vital signs are stable and she is afebrile. Heart regular, lungs clear, extremities without pain. Abdomen soft her incision is clean dry and intact and she has positive bowel sounds. We discussed discharge instructions including no heavy lifting, limit stairs and driving and pelvic rest. If she has a high temperatures, heavy bleeding or se eder pain she'll notify our office. I do not feel haseeb her rate, and she will therefore call the office tomorrow and have been removed tomorrow or Friday. All other questions were answered for her and her prescriptions for pain medication reported to her pharmacy. She is stable for discharge this time. Patient Condition at Discharge: Good Plan - Discharge Summary Discharge Rx Participant: Yes New Discharge Prescriptions: New Ibuprofen [Motrin] 600 mg PO Q6HR PRN #30 tab PRN Reason: Pain HYDROcodone/APAP 5-325MG [[place] 5-325] 1 tab PO Q4HR PRN #30 tab PRN Reason: Pain No Action Gsh-Udwi-Zgxar Acid [-U Capsule (formulary)] 1 cap PO HS Cephalexin [Keflex] 500 mg PO BID Discharge Medication List Hkc-Axsj-Wiyao Acid [-U Capsule (formulary)] 1 cap PO HS 10/23/18 [History] Cephalexin [Keflex] 500 mg PO BID 06/09/19 [History] HYDROcodone/APAP 5-325MG [[place] 5-325] 1 tab PO Q4HR PRN #30 tab 06/13/19 [Rx] Ibuprofen [Motrin] 600 mg PO Q6HR PRN #30 tab 06/13/19 [Rx] Follow up Appointment(s)/Referral(s): Miracle Beth DO [Doctor of Osteopathic Medicine] - 1-2 Days Activity/Diet/Wound Care/Special Instructions: No heavy lifting, limit stairs and driving, and pelvic rest. If any high temperatures, heavy bleeding, or severe pain call the office. She will call the office tomorrow to have her haseeb removed. Discharge Disposition: HOME SELF-CARE
[2019-06-13 11:58] VITALS: BP 140/76; PULSE 107; RESP 18; TEMP 98.7
== END 2019-06-13 13:25 | disposition home or self-care (01) | DRG 788 ==
LOC: 4FBP 05:52
PROVIDERS: ADMIT Obstetrics & Gynecology; ATTEND Obstetrics & Gynecology
PROC: 10D00Z1 Extraction of Products of Conception, Low, Open Approach (ICD-10-PCS; principal; 2019-06-11 08:00)
DX: O34.211 Maternal care for low transverse scar from previous cesarean delivery (principal); O99.62 Diseases of the digestive system complicating childbirth; K21.9 Gastro-esophageal reflux disease without esophagitis; Z37.0 Single live birth; Z3A.39 39 weeks gestation of pregnancy; Z87.442 Personal history of urinary calculi; Z87.440 Personal history of urinary (tract) infections; Z82.49 Family history of ischemic heart disease and other diseases of the circulatory system
CPT/HCPCS: 81003; 82565; 82570; 83615; 84156; 84450; 84460; 84520; 84550; 85025; 86850; 86900; 86901

== ENCOUNTER 2020-07-08 19:39 | Observation (INO) | payer OTHER ==
[2020-07-08] MEDS ORDERED: SODIUM CHLORIDE 0.9% 2,000 ML IV STA (20:04)
[2020-07-08] MEDS ORDERED: MORPHINE SULFATE 4 MG/ML SYRINGE IV STA (20:04)
[2020-07-08] MEDS ORDERED: SODIUM CHLORIDE 0.9% 1,000 ML IV STA (20:04)
[2020-07-08] MEDS ORDERED: KETOROLAC 15 MG/ML 1 ML VIAL IVP STA (20:04)
--- NOTE | 2020-07-08 20:05 | ED ---
Abdominal Pain HPI <Vickey Rodriguez - Last Filed: 07/08/20 22:40> - General Source: RN notes reviewed, old records reviewed <Tsering Celestin - Last Filed: 07/08/20 22:52> - General Stated Complaint: abd pain, back pain Time Seen by Provider: 07/08/20 19:58 - History of Present Illness Initial Comments: 21-year-old female presents emergency department today with complaints of left- sided flank and abdominal pain starting this afternoon around 3:00. She reports a pulsating pain to her flank area. She denies any change in urination. She denies any chest pain or shortness of breath. She complains of significant nausea and vomiting. Patient reports she finished her best menstrual period 2 days ago. Surgical history includes 4 C-sections. (Tsering Celestin) - Related Data Home Medications Medication Instructions Recorded Confirmed Acetaminophen Tab [Tylenol] 812.5 mg PO Q6H PRN 07/08/20 07/08/20 Allergies Allergy/AdvReac Type Severity Reaction Status Date / Time No Known Allergies Allergy Verified 07/08/20 21:03 Review of Systems ROS Other: All systems not noted in ROS Statement are negative. <Vickey Rodriguez - Last Filed: 07/08/20 22:40> ROS Other: All systems not noted in ROS Statement are negative. <Tsering Celestin - Last Filed: 07/08/20 22:52> ROS Statement: Those systems with pertinent positive or pertinent negative responses have been documented in the HPI. Past Medical History Past Medical History: No Reported History Additional Past Medical History / Comment(s): kidney stones and UTI's. Obstetric history: She's had 3 previous sections History of Any Multi-Drug Resistant Organisms: None Reported Past Surgical History: Section Additional Past Surgical History / Comment(s): C/S x 3 Past Anesthesia/Blood Transfusion Reactions: Previous Problems w/ Anesthesia, Motion Sickness, Postoperative Nausea & Vomiting (PONV) Additional Past Anesthesia/Blood Transfusion Reaction / Comment(s): (drop in blood pressure, nausea,vommiting, loss of consciousness-pt not aware if these reactions other than nausea), motion sickness as child Past Psychological History: Anxiety, Depression Additional Psychological History / Comment(s): no current tx Past Alcohol Use History: None Reported Past Drug Use History: Marijuana Additional Drug Use History / Comment(s): last used yesterday, "couple joints a day" - Past Family History Father Family Medical History: Coronary Artery Disease (CAD) Additional Family Medical History / Comment(s): dad at 38 from [place] Mother Additional Family Medical History / Comment(s): post hem <Tsering Celestin - Last Filed: 07/08/20 22:52> General Exam Head exam: Present: atraumatic, normocephalic, normal inspection Eye exam: Present: normal appearance, PERRL, EOMI. Absent: scleral icterus, conjunctival injection, periorbital swelling ENT exam: Present: normal exam, mucous membranes moist Neck exam: Present: normal inspection. Absent: tenderness, meningismus, lymphadenopathy Respiratory exam: Present: normal lung sounds bilaterally. Absent: respiratory distress, wheezes, rales, rhonchi, stridor Cardiovascular Exam: Present: regular rate, normal rhythm, normal heart sounds. Absent: systolic murmur, diastolic murmur, rubs, gallop, clicks GI/Abdominal exam: Present: soft, tenderness (Left CVA tenderness), normal bowel sounds. Absent: distended, guarding, rebound, rigid Extremities exam: Present: normal inspection, full ROM, normal capillary refill. Absent: tenderness, pedal edema, joint swelling, calf tenderness Back exam: Present: normal inspection Neurological exam: Present: alert, oriented X3, CN II-XII intact Psychiatric exam: Present: normal affect, normal mood Skin exam: Present: warm, dry, intact, normal color. Absent: rash <Tsering Celestin - Last Filed: 07/08/20 22:52> - General Exam Comments Initial Comments: 29-year-old female moderate discomfort. Nausea and vomiting. (Tsering Celestin) Course <Vickey Rodriguez - Last Filed: 07/08/20 22:40> Vital Signs 07/08/20 19:59 Temperature 97.7 F Pulse Rate 89 Respiratory 20 Rate Blood Pressure 129/89 O2 Sat by Pulse 99 Oximetry - Reevaluation(s) Reevaluation #1: 07/08/20 22:40 did discuss case [address] Dr[address] Doan covering for urology, possible procedure later this evening or tomorrow. and Joan covering for [facility]. (Vickey Rodriguez) Medical Decision Making - Lab Data Result diagrams: 07/08/20 20:20 07/08/20 20:20 <Vickey Rodriguez - Last Filed: 07/08/20 22:40> - Lab Data Result diagrams: 07/08/20 20:20 07/08/20 20:20 - Radiology Data Radiology results: report reviewed <Tsering Celestin - Last Filed: 07/08/20 22:52> - Medical Decision Making 29-year-old female presents emergency department today with complaints of nausea vomiting left flank and abdominal pain starting at 3 PM. Patient appeared in moderate discomfort upon arrival. Patient had multiple doses of vomiting. Patient is given IV fluids labwork obtained. She is found to have significant leukocytosis of 20,000 with lactic acid of 3.8. Patient was given fluid boluses. Urinalysis did show white blood cells and red blood cells concerning for infection or stone due to patient's pain. She had a computed tomography scan without contrast that shows significant nephro calcifications in the left UVJ stone. Patient received multiple rounds of IV pain medication. Pt started on IV rocephin. Patient will be admitted at this time remaining nothing by mouth with consults to Dr. Henao for likely surgery in AM. Dr. Rodriguez discussed with admitting physician and Dr. Doan. (Tsering Celestin) - Lab Data Lab Results 07/08/20 07/08/20 07/08/20 Range/Units 20:20 20:20 20:20 WBC 21.7 H (3.8-10.6) k/uL RBC 4.51 (3.80-5.40) m/uL Hgb 14.3 (11.4-16.0) gm/dL Hct 44.9 (34.0-46.0) % MCV 99.6 (80.0-100.0) fL MCH 31.6 (25.0-35.0) pg MCHC 31.8 (31.0-37.0) g/dL RDW 13.2 (11.5-15.5) % Plt Count 510 H (150-450) k/uL Neutrophils % 95 % Lymphocytes % 3 % Monocytes % 1 % Eosinophils % 1 % Basophils % 0 % Neutrophils # 20.6 H (1.3-7.7) k/uL Lymphocytes # 0.6 L (1.0-4.8) k/uL Monocytes # 0.2 (0-1.0) k/uL Eosinophils # 0.3 (0-0.7) k/uL Basophils # 0.0 (0-0.2) k/uL PT 9.9 (9.0-12.0) sec INR 0.9 (<1.2) APTT 22.4 (22.0-30.0) sec Sodium (137-145) mmol/L Potassium (3.5-5.1) mmol/L Chloride (98-107) mmol/L Carbon Dioxide (22-30) mmol/L Anion Gap mmol/L BUN (7-17) mg/dL Creatinine (0.52-1.04) mg/dL Est GFR (CKD-EPI)AfAm (>60 ml/min/1.73 sqM) Est GFR (CKD-EPI)NonAf (>60 ml/min/1.73 sqM) Glucose (74-99) mg/dL Plasma Lactic Acid Rommel (0.7-2.0) mmol/L Calcium (8.4-10.2) mg/dL Total Bilirubin (0.2-1.3) mg/dL AST (14-36) U/L ALT (4-34) U/L Alkaline Phosphatase (38-126) U/L Total Protein (6.3-8.2) g/dL Albumin (3.5-5.0) g/dL Amylase (30-110) U/L Lipase (23-300) U/L Urine Color Yellow Urine Appearance Cloudy H (Clear) Urine pH 6.5 (5.0-8.0) Ur Specific [place] 1.021 (1.001-1.035) Urine Protein Trace H (Negative) Urine Glucose (UA) Negative (Negative) Urine Ketones Negative (Negative) Urine Blood Moderate H (Negative) Urine Nitrite Negative (Negative) Urine Bilirubin Negative (Negative) Urine Urobilinogen <2.0 (<2.0) mg/dL Ur Leukocyte Esterase Large H (Negative) Urine RBC 6 H (0-5) /hpf Urine WBC 43 H (0-5) /hpf Ur Squamous Epith Cells 8 H (0-4) /hpf Urine Bacteria Occasional H (None) /hpf Urine Mucus Rare H (None) /hpf Urine HCG, Qual (Not Detectd) 07/08/20 07/08/20 07/08/20 Range/Units 20:20 20:20 20:20 WBC (3.8-10.6) k/uL RBC (3.80-5.40) m/uL Hgb (11.4-16.0) gm/dL Hct (34.0-46.0) % MCV (80.0-100.0) fL MCH (25.0-35.0) pg MCHC (31.0-37.0) g/dL RDW (11.5-15.5) % Plt Count (150-450) k/uL Neutrophils % % Lymphocytes % % Monocytes % % Eosinophils % % Basophils % % Neutrophils # (1.3-7.7) k/uL Lymphocytes # (1.0-4.8) k/uL Monocytes # (0-1.0) k/uL Eosinophils # (0-0.7) k/uL Basophils # (0-0.2) k/uL PT (9.0-12.0) sec INR (<1.2) APTT (22.0-30.0) sec Sodium 140 (137-145) mmol/L Potassium 4.2 (3.5-5.1) mmol/L Chloride 105 (98-107) mmol/L Carbon Dioxide 26 (22-30) mmol/L Anion Gap 9 mmol/L BUN 15 (7-17) mg/dL Creatinine 1.29 H (0.52-1.04) mg/dL Est GFR (CKD-EPI)AfAm 65 (>60 ml/min/1.73 sqM) Est GFR (CKD-EPI)NonAf 57 (>60 ml/min/1.73 sqM) Glucose 110 H (74-99) mg/dL Plasma Lactic Acid Rom[place] 3.8 H* (0.7-2.0) mmol/L Calcium 9.9 (8.4-10.2) mg/dL Total Bilirubin 1.1 (0.2-1.3) mg/dL AST 85 H (14-36) U/L ALT 79 H (4-34) U/L Alkaline Phosphatase 143 H (38-126) U/L Total Protein 8.6 H (6.3-8.2) g/dL Albumin 4.9 (3.5-5.0) g/dL Amylase 145 H (30-110) U/L Lipase 55 (23-300) U/L Urine Color Urine Appearance (Clear) Urine pH (5.0-8.0) Ur Specific [place] (1.001-1.035) Urine Protein (Negative) Urine Glucose (UA) (Negative) Urine Ketones (Negative) Urine Blood (Negative) Urine Nitrite (Negative) Urine Bilirubin (Negative) Urine Urobilinogen (<2.0) mg/dL Ur Leukocyte Esterase (Negative) Urine RBC (0-5) /hpf Urine WBC (0-5) /hpf Ur Squamous Epith Cells (0-4) /hpf Urine Bacteria (None) /hpf Urine Mucus (None) /hpf Urine HCG, Qual Not Detected (Not Detectd) - Radiology Data Numerous consultations of both kidneys mostly in the papular consistent with severe nephrocalcinosis. This could be variation of medullary sponge kidney. Obstructing calculus at the left ureteropelvic junction with left-sided hydronephrosis and perinephric edema that is new compared old exam. (Tsering Fregoso) Disposition <Vickey Rodriguez - Last Filed: 07/08/20 22:40> Is patient prescribed a controlled substance at d/c from ED?: No Time of Disposition: 22:52 <Tsering Celestin - Last Filed: 07/08/20 22:52> Clinical Impression: Sepsis, Ureteral stone, Nausea & vomiting Disposition: ADMITTED IP TO THIS HOSP Condition: Stable Referrals: None,Stated [Primary Care Provider] - 1-2 days
[2020-07-08] MEDS: ONDANSETRON 4 MG/2 ML VIAL IVP STA (20:17)
[2020-07-08 21:07] LABS: Albumin 4.9 g/dL (3.5-5.0); Appearance,Urine Cloudy (Clear); Bacteria,Urine Occasional /hpf; Bilirubin,Urine Negative (Negative); Blood,Urine Moderate (Negative); Calcium 9.9 mg/dL (8.4-10.2); Color,Urine Yellow; Glucose,Urine (UA) Negative (Negative); Ketones,Urine Negative (Negative); Leukocyte Esterase,Urine Large (Negative); Mucus,Urine Rare /hpf; Nitrite,Urine Negative (Negative); PH, Urine 6.5 (5.0-8.0); Potassium 4.2 mmol/L (3.5-5.1); Protein,Urine Trace (Negative); RBC,Urine 6 /hpf (0-5); Specific Gravity,Urine 1.021 (1.001-1.035); Squamous Epithelial Cell,Urine 8 /hpf (0-4); Total Bilirubin 1.1 mg/dL (0.2-1.3); Total Protein 8.6 g/dL (6.3-8.2); Urobilinogen,Urine <2.0 mg/dL (<2.0); WBC,Urine 43 /hpf (0-5)
[2020-07-08 21:09] LABS: INR 0.9 (<1.2); Partial Thromboplastin Time 22.4 sec (22.0-30.0); Prothrombin Time 9.9 sec (9.0-12.0)
[2020-07-08 21:17] LABS: Basophils % (A) 0 %; Eosinophils # (A) 0.3 k/uL (0-0.7); Eosinophils % (A) 1 %; HCT 44.9 % (34.0-46.0); HGB 14.3 gm/dL (11.4-16.0); Lymphocytes # (A) 0.6 k/uL (1.0-4.8); Lymphocytes % (A) 3 %; MCH 31.6 pg (25.0-35.0); MCHC 31.8 g/dL (31.0-37.0); MCV 99.6 fL (80.0-100.0); Mean Platelet Volume 7.5; Monocytes # (A) 0.2 k/uL (0-1.0); Monocytes % (A) 1 %; Neutrophils # (A) 20.6 k/uL (1.3-7.7); Neutrophils % (A) 95 %; Platelet Count 510 k/uL (150-450); RBC 4.51 m/uL (3.80-5.40); RDW 13.2 % (11.5-15.5); WBC 21.7 k/uL (3.8-10.6)
--- NOTE | 2020-07-08 22:11 | CT ---
EXAMINATION TYPE: CT abdomen pelvis wo con DATE OF EXAM: 07/08/2020 COMPARISON: 04/23/2018 HISTORY: LT flank pain. Hx renal stones, possible septic stone. CT DLP: 649.9 mGycm Automated exposure control for dose reduction was used. Images obtained from the diaphragm to the floor the pelvis without contrast. FINDINGS: Lung bases are clear of consolidation. There is no pleural effusion. Heart size is normal. There is n o pericardial effusion. Liver spleen stomach pancreas gallbladder appear normal. Bile ducts are not dilated. There are numerous bilateral renal calculi with predominantly renal papillary calcification. Calculi measure up to 1 cm. There is left-sided hydronephrosis and perinephric edema. There is 11 mm calculus at the left ureteropelvic junction. There is no retroperitoneal adenopathy. Bladder distends smoothl y. Uterus is anteverted. There is no inguinal hernia. There is no free fluid in the pelvis. There is no sign of pelvic mass. Lumbar vertebra have normal spacing and alignment. Posterior elements are intact. Bony pelvis is inta ct. Hip joints are intact. There is no mesenteric edema. There is no ascites or free air. There is no bowel obstruction. Appendi x is medial and appears normal. IMPRESSION: Numerous calcifications in both kidneys involving mostly the papilla and consistent with severe nephr ocalcinosis. This could be variation of medullary sponge kidney. Obstructing calculus at the left ure teropelvic junction with left-sided hydronephrosis and perinephric edema that is new compared to old exam. Extent of the renal calculi similar to old exam.
[2020-07-08] MEDS ORDERED: HYDROmorphone 1 MG/ML 1 ML SYRINGE IVP STA (22:24)
[2020-07-08] MEDS ORDERED: NALOXONE 0.4 MG/ML 1 ML VIAL IV PRN (22:52)
[2020-07-08] MEDS ORDERED: ONDANSETRON 4 MG/2 ML VIAL IVP PRN (22:52)
[2020-07-08] MEDS ORDERED: MORPHINE SULFATE 4 MG/ML SYRINGE IV PRN (22:52)
[2020-07-09] MEDS: KETOROLAC 15 MG/ML 1 ML VIAL IVP PRN ×2 (01:37→08:29)
[2020-07-09] MEDS: SODIUM CHLORIDE 0.9% 1,000 ML IV SCH ×3 (01:38→15:26)
[2020-07-09] MEDS: HYDROmorphone 1 MG/ML 1 ML SYRINGE IVP PRN ×2 (03:23→06:45)
[2020-07-09 05:17] VITALS: RESP 16
[2020-07-09] MEDS ORDERED: PANTOPRAZOLE 40 MG/10 ML VIAL IV SCH (09:00)
--- NOTE | 2020-07-09 11:28 | P.HPIM ---
History of Present Illness 21-year-old female presents emergency department yesterday with complaints of left-sided flank and abdominal pain starting this afternoon around 3:00. She reports a sharp and crampy pain to her flank area. Denied any dysuria.. She denies any chest pain or shortness of breath. She complains of significant nausea and vomiting. Patient reports she finished her best menstrual period 2 days ago. Patient appears to have extensive history of nephrolithiasis and UTIs in the past with E. coli which was pansensitive in the past. Patient is found to have lactic is doses as well patient had a computed tomography scan of the abdomen which showed numerous calcifications mostly in the papular and there was a nephrocalcinosis as well. There is an obstructive calculus in the left ureteropelvic junction and left-sided hydronephrosis and perinephric edema. UA is mostly consistent with the renal stones rather than UTI Review of Systems REVIEW OF SYSTEMS: CONSTITUTIONAL: No fever, no malaise, no fatigue. HEENT: No recent visual problems or hearing problems. Denied any sore throat. CARDIOVASCULAR: No chest pain, orthopnea, PND, no palpitations, no syncope. PULMONARY: No shortness of breath, no cough, no hemoptysis. GASTROINTESTINAL: As mentioned in HPI NEUROLOGICAL: No headaches, no weakness, no numbness. HEMATOLOGICAL: Denies any bleeding or petechiae. GENITOURINARY: Denies any burning micturition, frequency, or urgency. MUSCULOSKELETAL/RHEUMATOLOGICAL: Denies any joint pain, swelling, or any muscle pain. ENDOCRINE: Denies any polyuria or polydipsia. The rest of the 14-point review of systems is negative. Past Medical History Past Medical History: No Reported History Additional Past Medical History / Comment(s): kidney stones and UTI's. Obstetric history: She's had 4 sections History of Any Multi-Drug Resistant Organisms: None Reported Past Surgical History: Section Additional Past Surgical History / Comment(s): C/S x 4 Past Anesthesia/Blood Transfusion Reactions: Previous Problems w/ Anesthesia, Motion Sickness, Postoperative Nausea & Vomiting (PONV) Additional Past Anesthesia/Blood Transfusion Reaction / Comment(s): (drop in blood pressure, nausea,vommiting, loss of consciousness-pt not aware if these reactions other than nausea), motion sickness as child Past Psychological History: Anxiety, Depression Additional Psychological History / Comment(s): no current tx Smoking Status: Never smoker Past Alcohol Use History: None Reported Past Drug Use History: Marijuana Additional Drug Use History / Comment(s): "couple joints a day" - Past Family History Father Family Medical History: Coronary Artery Disease (CAD) Additional Family Medical History / Comment(s): dad at 38 from [place] Mother Additional Family Medical History / Comment(s): post hem Medications and Allergies Home Medications Medication Instructions Recorded Confirmed Type Acetaminophen Tab [Tylenol] 812.5 mg PO Q6H PRN 07/08/20 07/08/20 History Allergies Allergy/AdvReac Type Severity Reaction Status Date / Time No Known Allergies Allergy Verified 07/08/20 21:03 Physical Exam Vitals: Vital Signs Temp Pulse Pulse Resp BP BP Pulse Ox 07/09/20 05:16 97.7 F 91 16 115/77 97 07/08/20 23:49 97.5 F L 80 20 140/96 99 07/08/20 23:32 98.7 F 88 20 121/83 100 07/08/20 23:00 84 20 115/76 99 07/08/20 22:00 87 20 110/71 99 07/08/20 21:00 83 19 100/86 99 07/08/20 19:59 97.7 F 89 20 129/89 99 Intake and Output 07/08/20 07/09/20 07/09/20 22:59 06:59 14:59 Other: Voiding Method Toilet # Voids 1 1 Weight 77.111 kg 77.111 kg PHYSICAL EXAMINATION: GENERAL: The patient is alert and oriented x3, not in any acute distress. Well developed, well nourished. HEENT: Pupils are round and equally reacting to light. EOMI. No scleral icterus. No conjunctival pallor. Normocephalic, atraumatic. No pharyngeal erythema. No thyromegaly. CARDIOVASCULAR: S1 and S2 present. No murmurs, rubs, or gallops. PULMONARY: Chest is clear to auscultation, no wheezing or crackles. ABDOMEN: Soft, mild tenderness in the right CVA angle, nondistended, normoactive bowel sounds. No palpable organomegaly. MUSCULOSKELETAL: No joint swelling or deformity. EXTREMITIES: No cyanosis, clubbing, or pedal edema. NEUROLOGICAL: Gross neurological examination did not reveal any focal deficits. SKIN: No rashes. Results CBC & Chem 7: 07/08/20 20:20 07/08/20 20:20 Labs: Abnormal Lab Results - Last 24 Hours (Table) 07/08/20 07/08/20 07/08/20 Range/Units 20:20 20:20 20:20 WBC 21.7 H (3.8-10.6) k/uL Plt Count 510 H (150-450) k/uL Neutrophils # 20.6 H (1.3-7.7) k/uL Lymphocytes # 0.6 L (1.0-4.8) k/uL Creatinine 1.29 H (0.52-1.04) mg/dL Glucose 110 H (74-99) mg/dL Plasma Lactic Acid Rommel (0.7-2.0) mmol/L AST 85 H (14-36) U/L ALT 79 H (4-34) U/L Alkaline Phosphatase 143 H (38-126) U/L Total Protein 8.6 H (6.3-8.2) g/dL Amylase 145 H (30-110) U/L Urine Appearance Cloudy H (Clear) Urine Protein Trace H (Negative) Urine Blood Moderate H (Negative) Ur Leukocyte Esterase Large H (Negative) Urine RBC 6 H (0-5) /hpf Urine WBC 43 H (0-5) /hpf Ur Squamous Epith Cells 8 H (0-4) /hpf Urine Bacteria Occasional H (None) /hpf Urine Mucus Rare H (None) /hpf 07/08/20 07/08/20 07/09/20 Range/Units 20:20 23:38 02:28 WBC (3.8-10.6) k/uL Plt Count (150-450) k/uL Neutrophils # (1.3-7.7) k/uL Lymphocytes # (1.0-4.8) k/uL Creatinine (0.52-1.04) mg/dL Glucose (74-99) mg/dL Plasma Lactic Acid Rommel 3.8 H* 2.3 H* 3.5 H* (0.7-2.0) mmol/L AST (14-36) U/L ALT (4-34) U/L Alkaline Phosphatase (38-126) U/L Total Protein (6.3-8.2) g/dL Amylase (30-110) U/L Urine Appearance (Clear) Urine Protein (Negative) Urine Blood (Negative) Ur Leukocyte Esterase (Negative) Urine RBC (0-5) /hpf Urine WBC (0-5) /hpf Ur Squamous Epith Cells (0-4) /hpf Urine Bacteria (None) /hpf Urine Mucus (None) /hpf 07/09/20 07/09/20 Range/Units 05:13 08:11 WBC (3.8-10.6) k/uL Plt Count (150-450) k/uL Neutrophils # (1.3-7.7) k/uL Lymphocytes # (1.0-4.8) k/uL Creatinine (0.52-1.04) mg/dL Glucose (74-99) mg/dL Plasma Lactic Acid Rommel 2.1 H* 2.8 H* (0.7-2.0) mmol/L AST (14-36) U/L ALT (4-34) U/L Alkaline Phosphatase (38-126) U/L Total Protein (6.3-8.2) g/dL Amylase (30-110) U/L Urine Appearance (Clear) Urine Protein (Negative) Urine Blood (Negative) Ur Leukocyte Esterase (Negative) Urine RBC (0-5) /hpf Urine WBC (0-5) /hpf Ur Squamous Epith Cells (0-4) /hpf Urine Bacteria (None) /hpf Urine Mucus (None) /hpf Thrombosis Risk Factor Assmnt - Choose All That Apply Each Factor Represents 1 point: Obesity (BMI >25) Thrombosis Risk Factor Assessment Total Risk Factor Score: 1 Thrombosis Risk Factor Assessment Level: Low Risk Assessment and Plan Plan: -Left-sided the obstructive renal Calculi with hydronephrosis: This point is of urinary tract infection at this time. Patient does have lactic acidosis which is secondary to intravascular depletion patient will be continued on IV fluids patient will undergo lithotripsy today. Leave the decision of antibiotics to urology -Lactic acidosis: Continue with IV fluids although there is no real convincing evidence that patient has urinary tract infection did receive 1 dose of antibiotics any at -Leukocytosis reactive suffered is secondary to nephrolithiasis -Acute renal failure probably secondary to obstructive uropathy from renal stones with a competent to prerenal azotemia patient was started and continued on IV fluids -Mild elevation of liver enzymes probably nonspecific elevation: Repeat liver enzymes again tomorrow. -Depression
[2020-07-09] MEDS ORDERED: HYDROmorphone 0.5 MG/0.5 ML SYRINGE IVP STA (12:42)
[2020-07-09] MEDS ORDERED: LACTATED RINGERS 1,000 ML IV ONE (13:16)
[2020-07-09] MEDS ORDERED: DEXAMETHASONE SOD PHOSPHATE 10 MG/ML 1 ML VIAL IV ONE (13:25)
[2020-07-09] MEDS: ONDANSETRON 4 MG/2 ML VIAL IVP STA (13:25)
[2020-07-09] MEDS ORDERED: SCOPOLAMINE 1.5MG/72HR PATCH TRANSDERM ONE (13:26)
--- NOTE | 2020-07-09 13:32 | P.GSCN ---
History of Present Illness Consult date: 07/09/20 Reason for Consult: left ureteral stone History of present illness: Ms Galarza is a 29-year-old female who is admitted to the hospital with left- sided flank and abdominal pain. Her pain is associated with N/V. She denies any fever/chills, dysuria or gross hematuria. She has hx of recurrent stones, which she passed spontenously. In the ED she underwent a CT of abdomen which showed a 1.1 cm obstructive calculus in the left ureteropelvic junction and left-sided hydronephrosis and perinephric edema. She had evidence of nephrocalcinosis and multiple non obstructive stones. On presentation her WBC is 21k, and had elevation in lactate. Review of Systems - Constitutional Reports weakness, Denies chills, Denies fever - EENT Ears, nose, mouth and throat: Denies dysphagia - Cardiovascular Denies chest pain, Denies shortness of breath - Respiratory Denies cough, Denies 7 - Gastrointestinal Reports abdominal pain, Reports nausea, Reports vomiting - Genitourinary Genitourinary: Reports flank pain, Denies dysuria, Denies hematuria - Hematologic/Lymphatic Denies easy bleeding, Denies easy bruising Past Medical History Past Medical History: No Reported History Additional Past Medical History / Comment(s): kidney stones and UTI's. Obstetric history: She's had 4 sections History of Any Multi-Drug Resistant Organisms: None Reported Past Surgical History: Section Additional Past Surgical History / Comment(s): C/S x 4 Past Anesthesia/Blood Transfusion Reactions: Previous Problems w/ Anesthesia, Motion Sickness, Postoperative Nausea & Vomiting (PONV) Additional Past Anesthesia/Blood Transfusion Reaction / Comm: (drop in blood pressure, nausea,vommiting, loss of consciousness-pt not aware if these reactions other than nausea), motion sickness as child Past Psychological History: Anxiety, Depression Additional Psychological History / Comment(s): no current tx Smoking Status: Never smoker Past Alcohol Use History: None Reported Past Drug Use History: Marijuana Additional Drug Use History / Comment(s): "couple joints a day" - Past Family History Father Family Medical History: Coronary Artery Disease (CAD) Additional Family Medical History / Comment(s): dad at 38 from [place] Mother Additional Family Medical History / Comment(s): post hem Medications and Allergies Home Medications Medication Instructions Recorded Confirmed Type Acetaminophen Tab [Tylenol] 812.5 mg PO Q6H PRN 07/08/20 07/08/20 History Allergies Allergy/AdvReac Type Severity Reaction Status Date / Time No Known Allergies Allergy Verified 07/08/20 21:03 Surgical - Exam Vital Signs Temp Pulse Resp BP Pulse Ox 97.7 F 89 20 129/89 99 07/08/20 19:59 07/08/20 19:59 07/08/20 19:59 07/08/20 19:59 07/08/20 19:59 - General well developed, well nourished, moderate distress, severe pain - ENT normal nares, normal mucosa - Respiratory normal expansion, normal respiratory effort - Abdomen Abdomen: soft, tender - Psychiatric oriented to time, oriented to person, oriented to place Results - Labs 07/08/20 20:20 07/08/20 20:20 Abnormal Lab Results - Last 24 Hours (Table) 07/08/20 07/08/20 07/08/20 Range/Units 20:20 20:20 20:20 WBC 21.7 H (3.8-10.6) k/uL Plt Count 510 H (150-450) k/uL Neutrophils # 20.6 H (1.3-7.7) k/uL Lymphocytes # 0.6 L (1.0-4.8) k/uL Creatinine 1.29 H (0.52-1.04) mg/dL Glucose 110 H (74-99) mg/dL Plasma Lactic Acid Rommel (0.7-2.0) mmol/L AST 85 H (14-36) U/L ALT 79 H (4-34) U/L Alkaline Phosphatase 143 H (38-126) U/L Total Protein 8.6 H (6.3-8.2) g/dL Amylase 145 H (30-110) U/L Urine Appearance Cloudy H (Clear) Urine Protein Trace H (Negative) Urine Blood Moderate H (Negative) Ur Leukocyte Esterase Large H (Negative) Urine RBC 6 H (0-5) /hpf Urine WBC 43 H (0-5) /hpf Ur Squamous Epith Cells 8 H (0-4) /hpf Urine Bacteria Occasional H (None) /hpf Urine Mucus Rare H (None) /hpf 07/08/20 07/08/20 07/09/20 Range/Units 20:20 23:38 02:28 WBC (3.8-10.6) k/uL Plt Count (150-450) k/uL Neutrophils # (1.3-7.7) k/uL Lymphocytes # (1.0-4.8) k/uL Creatinine (0.52-1.04) mg/dL Glucose (74-99) mg/dL Plasma Lactic Acid Rommel 3.8 H* 2.3 H* 3.5 H* (0.7-2.0) mmol/L AST (14-36) U/L ALT (4-34) U/L Alkaline Phosphatase (38-126) U/L Total Protein (6.3-8.2) g/dL Amylase (30-110) U/L Urine Appearance (Clear) Urine Protein (Negative) Urine Blood (Negative) Ur Leukocyte Esterase (Negative) Urine RBC (0-5) /hpf Urine WBC (0-5) /hpf Ur Squamous Epith Cells (0-4) /hpf Urine Bacteria (None) /hpf Urine Mucus (None) /hpf 07/09/20 07/09/20 Range/Units 05:13 08:11 WBC (3.8-10.6) k/uL Plt Count (150-450) k/uL Neutrophils # (1.3-7.7) k/uL Lymphocytes # (1.0-4.8) k/uL Creatinine (0.52-1.04) mg/dL Glucose (74-99) mg/dL Plasma Lactic Acid Rommel 2.1 H* 2.8 H* (0.7-2.0) mmol/L AST (14-36) U/L ALT (4-34) U/L Alkaline Phosphatase (38-126) U/L Total Protein (6.3-8.2) g/dL Amylase (30-110) U/L Urine Appearance (Clear) Urine Protein (Negative) Urine Blood (Negative) Ur Leukocyte Esterase (Negative) Urine RBC (0-5) /hpf Urine WBC (0-5) /hpf Ur Squamous Epith Cells (0-4) /hpf Urine Bacteria (None) /hpf Urine Mucus (None) /hpf Microbiology - Last 24 Hours (Table) 07/08/20 20:20 Urine Culture - Preliminary Urine,Clean Catch Diabetes panel 07/08/20 Range/Units 20:20 Sodium 140 (137-145) mmol/L Potassium 4.2 (3.5-5.1) mmol/L Chloride 105 (98-107) mmol/L Carbon Dioxide 26 (22-30) mmol/L BUN 15 (7-17) mg/dL Creatinine 1.29 H (0.52-1.04) mg/dL Glucose 110 H (74-99) mg/dL Calcium 9.9 (8.4-10.2) mg/dL AST 85 H (14-36) U/L ALT 79 H (4-34) U/L Alkaline Phosphatase 143 H (38-126) U/L Total Protein 8.6 H (6.3-8.2) g/dL Albumin 4.9 (3.5-5.0) g/dL Calcium panel 07/08/20 Range/Units 20:20 Calcium 9.9 (8.4-10.2) mg/dL Albumin 4.9 (3.5-5.0) g/dL Pituitary panel 07/08/20 Range/Units 20:20 Sodium 140 (137-145) mmol/L Potassium 4.2 (3.5-5.1) mmol/L Chloride 105 (98-107) mmol/L Carbon Dioxide 26 (22-30) mmol/L BUN 15 (7-17) mg/dL Creatinine 1.29 H (0.52-1.04) mg/dL Glucose 110 H (74-99) mg/dL Calcium 9.9 (8.4-10.2) mg/dL Adrenal panel 07/08/20 Range/Units 20:20 Sodium 140 (137-145) mmol/L Potassium 4.2 (3.5-5.1) mmol/L Chloride 105 (98-107) mmol/L Carbon Dioxide 26 (22-30) mmol/L BUN 15 (7-17) mg/dL Creatinine 1.29 H (0.52-1.04) mg/dL Glucose 110 H (74-99) mg/dL Calcium 9.9 (8.4-10.2) mg/dL Total Bilirubin 1.1 (0.2-1.3) mg/dL AST 85 H (14-36) U/L ALT 79 H (4-34) U/L Alkaline Phosphatase 143 H (38-126) U/L Total Protein 8.6 H (6.3-8.2) g/dL Albumin 4.9 (3.5-5.0) g/dL Assessment and Plan Assessment: 29-year-old female admitted to the hospital with a 1.1 cm obstructive left urete ral stone. Patient has evidence of leukocytosis and elevation and lactate. Discussed with her given her sepsis would proceed with ureteral stent placement Plan: -Continue antibiotics -OR for cystoscopy, left ureteral stent placement
[2020-07-09] MEDS ORDERED: PROPOFOL 10 MG/ML 20 ML VIAL IV ONE (13:44)
[2020-07-09] MEDS ORDERED: fentaNYL (PF) 50 MCG/ML 2 ML AMP ONE (13:44)
[2020-07-09] MEDS ORDERED: LIDOCAINE 1% INJ 10MG/ML (20 ML MDV) ONE (13:44)
[2020-07-09] MEDS ORDERED: MIDAZOLAM 2 MG/2 ML VIAL ONE (13:44)
[2020-07-09] MEDS ORDERED: SODIUM CHLORIDE 0.9% 100 ML with GENTAMICIN 100 MG IV ONE ×2 (14:00)
[2020-07-09] MEDS ORDERED: IOPAMIDOL-370 50ML BTL MISCELLANE ONE (14:04)
--- NOTE | 2020-07-09 14:18 | P.OP ---
Date of Procedure: 07/09/20 Preoperative Diagnosis: Left ureteral stone Postoperative Diagnosis: Same Procedure(s) Performed: Cystoscopy and left ureteral stent placement Implants: 6-Gibraltarian by 24 cm stent Anesthesia: ADAMARIS Surgeon: Akbar Doan Estimated Blood Loss (ml): 1 Pathology: other (Left kidney urine for culture) Condition: stable Disposition: PACU Indications for Procedure: This is a 29-year-old female that presented to the ED with a 1.1 cm left UPJ stone. Patient is septic secondary to her stone. Given the sepsis decision was made to proceed with stent placement. Discussed with her the risk of the surgery including bleeding and infection. I also discussed with her that this is a temporizing measure to control her infection, she will require definitive stone management down the road. She understood all the risk and agreed to proceed Operative Findings: Purulent urine drained from the left kidney Description of Procedure: Patient was brought to the operating room, general anesthesia was induced. She was prepped and draped in sterile fashion a placed in dorsal lithotomy position. Cystoscopy fitted with a 21 sheath was inserted per urethra. Attention was then carried to the left ureteral orifice which was intubated with a sensor wire, and sensor wire was advanced past the stone into the collecting system. Next the open-ended catheter was passed over the wire, urine was aspirated once the catheter was advanced up into the kidney. Purulent urine was obtained and sent for culture. At this time the sensor wire was readvanced through the catheter, the catheter was removed with the wire in place. Next a 6-Gibraltarian by 24 cm stent was passed over the wire. The proximal curl was on fluoroscopy and distal curl was visualized on cystoscope. The bladder was emptied at the end of case. The patient tolerated the procedure well and was taken to PACU in stable condition
[2020-07-09 15:23] VITALS: TEMP 97.9
[2020-07-09 16:32] VITALS: BP 117/73; PULSE 80
--- NOTE | 2020-07-09 18:08 | FL ---
EXAMINATION TYPE: FL guidance operating room DATE OF EXAM: 07/09/2020 FLUOROSCOPY Fluoroscopy time of 14 seconds was used during left kidney cystoscopy and cystogram. 1 image/s docum ent/s the procedure.
--- NOTE | 2020-07-11 13:39 | P.DS ---
Providers Date of admission: 07/08/20 22:39 Expected date of discharge: 07/09/20 Attending physician: Luis Manuel Zepeda Consults: 07/08/20 22:52 Consult Physician Stat Consulting Provider: Akbar Doan Reason/Comments: Sepsis, Ureteral stone Do you want consulting provider notified?: Already Contacted Primary care physician: Stated None Hospital Course: Left AMA Plan - Discharge Summary New Discharge Prescriptions: No Action Acetaminophen Tab [Tylenol] 812.5 mg PO Q6H PRN PRN Reason: Pain Discharge Medication List Acetaminophen Tab [Tylenol] 812.5 mg PO Q6H PRN 07/08/20 [History] Follow up Appointment(s)/Referral(s): None,Stated [Primary Care Provider] - 1-2 days Discharge Disposition: Left Against Medical Advice
== END 2020-07-09 17:27 | disposition home or self-care (01) ==
LOC: EC 19:39 → 6NMEDSUR 22:39 → INTOOBSV 22:39 → UNDODISIN 07-09 17:27
PROVIDERS: ADMIT Hospitalist; ATTEND Hospitalist
DX: A41.9 Sepsis, unspecified organism (principal); N13.6 Pyonephrosis; N17.9 Acute kidney failure, unspecified; E87.2 Acidosis; E83.59 Other disorders of calcium metabolism; N29 Other disorders of kidney and ureter in diseases classified elsewhere; R74.8 Abnormal levels of other serum enzymes; Z53.29 Procedure and treatment not carried out because of patient's decision for other reasons; F41.9 Anxiety disorder, unspecified; F32.9 Major depressive disorder, single episode, unspecified; Z98.890 Other specified postprocedural states; Z87.442 Personal history of urinary calculi; Z87.440 Personal history of urinary (tract) infections; Z91.89 Other specified personal risk factors, not elsewhere classified; Z87.898 Personal history of other specified conditions; Z86.19 Personal history of other infectious and parasitic diseases; Z82.49 Family history of ischemic heart disease and other diseases of the circulatory system; Z84.89 Family history of other specified conditions
CPT/HCPCS: 52332; 96376; 96375 ×2; 96361; 96374; 99285; 36415; 80053; 82150; 83605 ×2; 83690; 85025; 85610; 85730; 81001; 81025; 84703; 87086 ×2; 87077 ×2; 87186 ×2; 74176; G0378 ×2; C2625; C1758; C1769 ×3; J2250; J2270; J1580; J1100; J2405 ×2; J0696 ×2; J2001; J3010; J1170 ×3; J1885 ×2; J2704; C9113; Q9967; 96365

== ENCOUNTER → 2020-08-15 | Outpatient (CLI) | payer OTHER ==
[2020-08-15 16:25] LABS: Basophils # (A) 0.1 k/uL (0-0.2); Basophils % (A) 1 %; Eosinophils # (A) 0.3 k/uL (0-0.7); Eosinophils % (A) 2 %; HCT 42.5 % (34.0-46.0); HGB 13.5 gm/dL (11.4-16.0); Lymphocytes # (A) 3.1 k/uL (1.0-4.8); Lymphocytes % (A) 25 %; MCH 30.4 pg (25.0-35.0); MCHC 31.7 g/dL (31.0-37.0); MCV 95.8 fL (80.0-100.0); Mean Platelet Volume 7.1; Monocytes # (A) 0.5 k/uL (0-1.0); Monocytes % (A) 4 %; Neutrophils # (A) 8.3 k/uL (1.3-7.7); Neutrophils % (A) 67 %; Platelet Count 500 k/uL (150-450); RBC 4.43 m/uL (3.80-5.40); RDW 14.6 % (11.5-15.5); WBC 12.3 k/uL (3.8-10.6)
[2020-08-15 16:37] LABS: African American GFR (CKD) >90 (>60 ml/min/1.73 sqM); Anion Gap 9 mmol/L; Blood Urea Nitrogen 14 mg/dL (7-17); Carbon Dioxide 24 mmol/L (22-30); Chloride 104 mmol/L (98-107); Glucose 92 mg/dL (74-99); Non-African American GFR(CKD) 79 (>60 ml/min/1.73 sqM); Potassium 4.1 mmol/L (3.5-5.1); Sodium 137 mmol/L (137-145)
[2020-08-15 16:46] LABS: Appearance,Urine Cloudy (Clear); Bacteria,Urine Rare /hpf; Bilirubin,Urine Negative (Negative); Blood,Urine Trace (Negative); Budding Yeast,Urine Occasional /hpf; Color,Urine Light Yellow; Glucose,Urine (UA) Negative (Negative); Ketones,Urine Negative (Negative); Leukocyte Esterase,Urine Large (Negative); Mucus,Urine Rare /hpf; Nitrite,Urine Negative (Negative); PH, Urine 6.5 (5.0-8.0); Protein,Urine Trace (Negative); RBC,Urine 4 /hpf (0-5); Specific Gravity,Urine 1.011 (1.001-1.035); Squamous Epithelial Cell,Urine 3 /hpf (0-4); Urobilinogen,Urine <2.0 mg/dL (<2.0); WBC,Urine 48 /hpf (0-5)
== END | disposition home or self-care (01) ==
LOC: LABPAT 15:56
PROVIDERS: ATTEND Urology
DX: Z01.818 Encounter for other preprocedural examination (principal); N20.1 Calculus of ureter; R31.29 Other microscopic hematuria
CPT/HCPCS: 80048; 81001; 85025; 87086

== ENCOUNTER → 2020-08-18 | Day surgery (SDC) | payer OTHER ==
[2020-08-16 11:24] VITALS: BMI 30.2
[~2020-08-18] MED LIST: DEXAMETHASONE SOD PHOSPHATE 4 MG/ML 1 ML VIAL IV ONE; FLUCONAZOLE IN NACL,ISO-OSM 400 MG in SALINE 1 200ML.BAG IVPB STA; GENTAMICIN 120 MG in SODIUM CHLORIDE 0.9% 100 ML IVPB PRN; KETOROLAC 15 MG/ML 1 ML VIAL ONE; LACTATED RINGERS 1,000 ML IV ONE; LACTATED RINGERS 1,000 ML IV SCH; LIDOCAINE 1% (10MG/ML) FOR IV START INTRADERMA PRN; MIDAZOLAM 2 MG/2 ML VIAL IVP ONE; MIDAZOLAM 2 MG/2 ML VIAL ONE; ONDANSETRON 4 MG/2 ML VIAL IVP ONE; ONDANSETRON 4 MG/2 ML VIAL ONE; PROPOFOL 10 MG/ML 20 ML VIAL IV ONE; fentaNYL (PF) 50 MCG/ML 2 ML AMP ONE
--- NOTE | 2020-08-18 13:41 | XR ---
EXAMINATION TYPE: XR KUB DATE OF EXAM: 08/18/2020 1:30 PM CLINICAL HISTORY: Left-sided kidney stone . Presurgical study. TECHNIQUE: Single supine KUB image of the abdomen is obtained. COMPARISON: CT abdomen and pelvis July 08, 2020. FINDINGS: Multiple faint small calculi bilaterally redemonstrated. Correlate for underlying medullary nephrocalcinosis. There is new left ureter stent on current study. Persistent dominant 13 mm calculu s left kidney at UPJ. Few scattered bilateral pelvic phleboliths redemonstrated. Overall nonobstructive bowel gas pattern. Visualized osseous structures are intact. IMPRESSION: As above.
--- NOTE | 2020-08-18 15:27 | P.HPIHPCON ---
History of Present Illness H&P Date: 08/18/20 Chief Complaint: left ureteral stone 29-year-old female history of left-sided ureteral stone. She is status post stent placement for septic stone. She presents today for left ureteroscopy. Of note her urine culture showed Gabbie. Discussed with her given the candidate we will proceed with left stent exchange. followed by ureteroscopy. Discussed with her the risk of bleeding infection. Also discussed the risk of retained stent as we need to be removed eventually, discussed if stent stays beyond 3 months and there is a chance of encrustation a loss of kidney function. Discussed with her given the positive urine culture, it unsafe to proceed with ureteroscopy. Of note patient was advised to do urine culture a week prior to surgery but did not perform it until three day prior Consent for Procedure: I have explained the operation/procedure to the patient, including the risks, benefits, side effects, alternative therapies (including not receiving the proposed treatment or service), the likelihood of the patient achieving his/her goals, and potential recuperation problems for the procedure/sedation/analgesia, as well as any blood products, if indicated. I also explained to the patient the risks, benefits and side effects of the alternatives, as well as the risks related to not receiving the proposed procedure, care, treatment, or services. - Constitutional Constitutional: Denies chills, Denies fever - Cardiovascular Cardiovascular: Denies chest pain, Denies shortness of breath - Respiratory Respiratory: Denies cough, Denies 7 - Gastrointestinal Gastrointestinal: Denies abdominal pain, Denies diarrhea, Denies nausea, Denies vomiting - Genitourinary (Female) Genitourinary: Denies dysuria, Denies hematuria Past Medical History Past Medical History: No Reported History Additional Past Medical History / Comment(s): mult kidney stones and UTI's, high blood pressure with first pregancy, "bad infection after surgery JUN 2020" History of Any Multi-Drug Resistant Organisms: None Reported Past Surgical History: Section Additional Past Surgical History / Comment(s): C/S x 4, cystoscopy with left ureteral stent, toe nail removed from great toe at age 4 Past Anesthesia/Blood Transfusion Reactions: Previous Problems w/ Anesthesia, Motion Sickness, Postoperative Nausea & Vomiting (PONV) Additional Past Anesthesia/Blood Transfusion Reaction / Comment(s): (drop in blood pressure, nausea,vommiting, loss of consciousness-pt not aware if these reactions other than nausea) with C/S, motion sickness as child, pt denies problem with anesthesia with surgery at [facility] Jun 2020-record on chart Smoking Status: Never smoker - Past Family History Father Family Medical History: Coronary Artery Disease (CAD) Additional Family Medical History / Comment(s): dad at 38 from [place] Mother Family Medical History: No Reported History Additional Family Medical History / Comment(s): . Medications and Allergies Home Medications Medication Instructions Recorded Confirmed Type Acetaminophen Tab [Tylenol] 975 mg PO Q6H PRN 08/16/20 08/18/20 History Allergies Allergy/AdvReac Type Severity Reaction Status Date / Time ibuprofen Allergy fatigue,vom Verified 08/16/20 11:12 iting,fever , Surgical - Exam Vital Signs Temp Pulse Resp BP Pulse Ox 97.8 F 109 H 20 148/77 99 08/18/20 13:40 08/18/20 13:40 08/18/20 13:40 08/18/20 13:40 08/18/20 13:40 - General well developed, well nourished - ENT normal nares, normal mucosa Assessment and Plan Assessment: left sided ureteral stone with urine culture showing gabbie -OR for left stent exchange
[2020-08-18 16:12] VITALS: TEMP 98
--- NOTE | 2020-08-18 16:16 | P.OP ---
Date of Procedure: 08/18/20 Preoperative Diagnosis: Left ureteral stone/UTI Postoperative Diagnosis: Same Procedure(s) Performed: Cystoscopy, left stent exchange Implants: 6-British by 24 cm stent Anesthesia: ADAMARIS Surgeon: Akbar Doan Estimated Blood Loss (ml): 0 Pathology: none sent Condition: stable Disposition: PACU Indications for Procedure: 29-year-old female history of left-sided ureteral stone. She is status post stent placement for septic stone. She presents today for left ureteroscopy. Of note her urine culture showed Gabbie. Discussed with her given the candidate we will proceed with left stent exchange. followed by ureteroscopy. Discussed with her the risk of bleeding infection. Also discussed the risk of retained stent as we need to be removed eventually, discussed if stent stays beyond 3 months and there is a chance of encrustation a loss of kidney function. Discussed with her given the positive urine culture, it unsafe to proceed with ureteroscopy. Of note patient was advised to do urine culture a week prior to surgery but did not perform it until three day prior Description of Procedure: Patient was brought to the operating room, sedation was induced. She was prepped and draped in sterile fashion placed in dorsal lithotomy position. Cystoscopy was performed which showed erythema within the bladder, Consistent with her cystitis. 21-British British sheath was inserted per urethra. The stent was visualized protruding from the left ureteral orifice. The stent was grasped and removed to the meatus. Next a sensor wire was advanced through the stent, and a new 6-British by 24 stent was passed over the wire, the proximal curl was visualized on fluoroscopy and the distal curl was visualized using the cystoscope. The bladder was emptied and the case. The patient tolerated procedure well was taken to PACU in stable condition
[2020-08-18 16:35] VITALS: BP 128/82; RESP 17
[2020-08-18 16:37] VITALS: PULSE 82
--- NOTE | 2020-08-19 13:44 | FL ---
EXAMINATION TYPE: FL urography retrograde DATE OF EXAM: 08/18/2020 FLUOROSCOPY Fluoroscopy time of 2 seconds was used during left ureteral calculus intervention and stent placement . 1 image/s document/s the procedure.
== END | disposition home or self-care (01) ==
LOC: OR 12:46
PROVIDERS: ATTEND Urology
DX: N20.1 Calculus of ureter (principal); B37.49 Other urogenital candidiasis; Z96.0 Presence of urogenital implants; Z87.442 Personal history of urinary calculi; Z87.440 Personal history of urinary (tract) infections; Z87.59 Personal history of other complications of pregnancy, childbirth and the puerperium; Z86.19 Personal history of other infectious and parasitic diseases; Z98.890 Other specified postprocedural states; Z91.89 Other specified personal risk factors, not elsewhere classified; Z87.898 Personal history of other specified conditions; Z88.6 Allergy status to analgesic agent; Z82.49 Family history of ischemic heart disease and other diseases of the circulatory system
CPT/HCPCS: 52332; 81025; 74420; 74018; C2625; C1758 ×4; C1894; C1769 ×3; J2250; J1100; J0690; J2405; J3010; J1450; J1885; J2704

== ENCOUNTER 2020-09-04 09:57 | Day surgery (SDC) | payer OTHER ==
[2020-09-01 10:39] VITALS: BMI 29.9
--- NOTE | 2020-09-03 10:52 | P.HPIHPCON ---
History of Present Illness H&P Date: 09/04/20 Chief Complaint: left renal stone 29 yo female with hx of left sided ureteral renal stone. She is S/P ureteral stent placement for septic stone, and subsequently underwent stent change for marcio. Her CT showed a 1.3 cm left UPJ stone and two 5mm renal stone. I discussed with her given her stone burden there is potential this will need to be a staged. Discussed with her the risk of bleeding, infection and injury to the ureter. She understood all the risk and agreed to proceed with left sided ureteroscopy with holmium laser, stone basketting and stent exchange Consent for Procedure: I have explained the operation/procedure to the patient, including the risks, benefits, side effects, alternative therapies (including not receiving the proposed treatment or service), the likelihood of the patient achieving his/her goals, and potential recuperation problems for the procedure/sedation/analgesia, as well as any blood products, if indicated. I also explained to the patient the risks, benefits and side effects of the alternatives, as well as the risks related to not receiving the proposed procedure, care, treatment, or services. - Constitutional Constitutional: Denies chills, Denies fever - Cardiovascular Cardiovascular: Denies chest pain, Denies shortness of breath - Respiratory Respiratory: Denies cough, Denies 7 - Gastrointestinal Gastrointestinal: Denies abdominal pain, Denies diarrhea, Denies nausea, Denies vomiting - Genitourinary (Female) Genitourinary: Denies dysuria, Denies hematuria - Genitourinary (Male) Genitourinary: Denies dysuria, Denies hematuria Past Medical History Past Medical History: No Reported History Additional Past Medical History / Comment(s): kidney stones and UTI's History of Any Multi-Drug Resistant Organisms: None Reported Past Surgical History: Section Additional Past Surgical History / Comment(s): C/S x 4 Past Anesthesia/Blood Transfusion Reactions: Previous Problems w/ Anesthesia, Motion Sickness, Postoperative Nausea & Vomiting (PONV) Additional Past Anesthesia/Blood Transfusion Reaction / Comment(s): (drop in blood pressure, nausea,vommiting, loss of consciousness-pt not aware of these reactions other than nausea), motion sickness as child Smoking Status: Never smoker - Past Family History Father Family Medical History: Coronary Artery Disease (CAD) Additional Family Medical History / Comment(s): dad at 38 from [place] Mother Additional Family Medical History / Comment(s): post hem Medications and Allergies Home Medications Medication Instructions Recorded Confirmed Type Acetaminophen Tab [Tylenol] 975 mg PO Q6H PRN 08/16/20 09/01/20 History Fluconazole [Diflucan] 200 mg PO DAILY 14 Days #14 tab 08/18/20 09/01/20 Rx Allergies Allergy/AdvReac Type Severity Reaction Status Date / Time ibuprofen Allergy fatigue,vom Verified 09/01/20 10:08 iting,fever Surgical - Exam - General well developed, well nourished, no distress, no pain - Eyes PERRL, normal ocular movement - Respiratory normal expansion, normal respiratory effort - Abdomen Abdomen: soft, non tender - Psychiatric oriented to time, oriented to person, oriented to place Assessment and Plan Assessment: 29 yo with hx of left sided stone -OR for left sided ureteroscopy with holmium laser lithotripsy, stone basketting and stent placement
[~2020-09-04 09:57] MED LIST changes: -FLUCONAZOLE IN NACL,ISO-OSM 400 MG in SALINE 1 200ML.BAG IVPB STA; +HYDROmorphone 0.5 MG/0.5 ML SYRINGE IVP PRN; -KETOROLAC 15 MG/ML 1 ML VIAL ONE; -LACTATED RINGERS 1,000 ML IV ONE; -LIDOCAINE 1% (10MG/ML) FOR IV START INTRADERMA PRN; -MIDAZOLAM 2 MG/2 ML VIAL IVP ONE; -MIDAZOLAM 2 MG/2 ML VIAL ONE; -ONDANSETRON 4 MG/2 ML VIAL ONE; -PROPOFOL 10 MG/ML 20 ML VIAL IV ONE; -fentaNYL (PF) 50 MCG/ML 2 ML AMP ONE
--- NOTE | 2020-09-04 10:22 | XR ---
EXAMINATION TYPE: XR KUB DATE OF EXAM: 09/04/2020 HISTORY: Pain Comparison: None.Single KUB is submitted for interpretation. Findings: Right renal calculi: Innumerable right-sided renal calculi are redemonstrated. Right ureteral calculi: None Visualized. Left renal calculi: Innumerable left-sided renal calculi redemonstrated. Left ureteral calculi: Double pigtail left-sided ureteral stent noted to be in place. The level of t he renal pelvis and there is a 1.3 cm calculus noted essentially unchanged in location versus the kiki or study. Pelvic calcifications: None Visualized. Bowel gas pattern is unremarkable. No free air. No mass effects. IMPRESSION: 1. As above
[2020-09-04] MEDS ORDERED: LIDOCAINE 1% (10MG/ML) FOR IV START INTRADERMA ONE (10:46)
[2020-09-04] MEDS ORDERED: LIDOCAINE 1% INJ 10MG/ML (20 ML MDV) ONE (12:46)
[2020-09-04] MEDS ORDERED: fentaNYL (PF) 50 MCG/ML 2 ML AMP ONE (12:46)
[2020-09-04] MEDS ORDERED: SUCCINYLCHOLINE CHLORIDE 100 MG/5 ML SYR IV ONE (12:46)
[2020-09-04] MEDS ORDERED: PROPOFOL 10 MG/ML 20 ML VIAL IV ONE (12:46)
[2020-09-04] MEDS ORDERED: MIDAZOLAM 2 MG/2 ML VIAL ONE (12:46)
[2020-09-04] MEDS ORDERED: LACTATED RINGERS 1,000 ML IV ONE ×2 (13:13)
--- NOTE | 2020-09-04 14:16 | P.OP ---
Date of Procedure: 09/04/20 Preoperative Diagnosis: Left ureteral/renal calculi Postoperative Diagnosis: Same Procedure(s) Performed: Cystoscopy, left ureteroscopy, holmium laser lithotripsy, stone basketing and stent exchange Implants: 6-Macanese X 24 cm stent Anesthesia: ADAMARIS Surgeon: Akbar Doan Estimated Blood Loss (ml): 5 Pathology: other (Left renal calculi) Condition: stable Disposition: PACU Indications for Procedure: 29 yo female with hx of left sided ureteral renal stone. She is S/P ureteral stent placement for septic stone, and subsequently underwent stent change for marcio. Her CT showed a 1.3 cm left UPJ stone and two 5mm renal stone. I discussed with her given her stone burden there is potential this will need to be a staged. Discussed with her the risk of bleeding, infection and injury to the ureter. She understood all the risk and agreed to proceed with left sided ureteroscopy with holmium laser, stone basketting and stent exchange Operative Findings: Large stone within the renal pelvis, 2 additional large stones in the upper pole, multiple small stone in the lower pole. Significant amount of parenchymal calcification Description of Procedure: Patient was brought to the operating room, general anesthesia was induced. She was prepped and draped in sterile fashion placed in a dorsal lithotomy position. Cystoscopy fitted with a 21-Macanese sheath was inserted per urethra, cystoscopy was performed showed no abnormality within the bladder. Attention was then carried to the left ureteral orifice. The stent was grasped and removed to the meatus, a sensor wire was advanced through the stent and the stent was removed with the wire in place. Next a 1113 Macanese access sheath was passed over the wire under fluoroscopy into the proximal ureter. Next the flexible ureteroscope was advanced through the access sheath. A large stone was encountered into the renal pelvis, the stone was dusted. Attention was carried to the upper pole stones, 2 large stones in the upper pole were encountered, those were also dusted. At this time attention was carried to the lower pole stones, using the stone basket the stones were removed and sent for analysis. Sizable fragments within the renal pelvis was also removed and sent for pathology. Repeat renoscopy demonstrated no obvious sizable stones, but of note there was significant amount of dust secondary to her stone burden, this limited visual ization. Pullback ureteroscopy was performed which showed no injury to the ureter or any ureteral stone. Next a 6-Macanese by 26 cm stent was passed over the wire, the proximal curl was also on fluoroscopy and distal curl was visualized using the cystoscope. Patient was awakened from anesthesia and taken to recovery in stable condition. At this time we will proceed in 2 weeks for a second look ureteroscopy to address any residual stones
--- NOTE | 2020-09-04 14:24 | FL ---
EXAMINATION TYPE: FL urography retrograde DATE OF EXAM: 09/04/2020 COMPARISON: NONE HISTORY: Retrograde pyelography TECHNIQUE: Fluoroscopy. FINDINGS: Fluoroscopic guidance was provided during procedure performed. A total of 3 seconds of flu oroscopic time was utilized during the procedure and 1 spot images was acquired. IMPRESSION: As Above.
[2020-09-04 14:26] VITALS: TEMP 97.5
[2020-09-04 14:50] VITALS: RESP 16
[2020-09-04] MEDS ORDERED: traMADol 50 MG TAB ONE (15:32)
[2020-09-04] MEDS ORDERED: traMADol 50 MG TAB PO ONE (15:33)
[2020-09-04 15:55] VITALS: BP 141/87; PULSE 93
== END 2020-09-04 16:13 | disposition home or self-care (01) ==
LOC: OR 09:57
PROVIDERS: ATTEND Urology
DX: N20.2 Calculus of kidney with calculus of ureter (principal)
CPT/HCPCS: 52356; 74420; 74018; 81025; 82365; C2625; C1769; J2250; J1100; J0690; J2405; J2001; J3010; J1580; J0330; J2704

== ENCOUNTER 2020-09-25 05:57 | Day surgery (SDC) | payer OTHER ==
--- NOTE | 2020-09-24 12:59 | P.HPIHPCON ---
History of Present Illness H&P Date: 09/24/20 Chief Complaint: left ureteral calculi, right flank pain Ms Galarza is a 29 yo female with hx of left sided ureteral renal stone. She is S/P ureteral stent placement for septic stone, and subsequently underwent stent change for marcio. Her CT showed a 1.3 cm left UPJ stone and two 5mm renal stone. She underwent stage one ureteroscopy on 09/04, she present today for second stage ureteroscopy. She is also been complaining of right flank pain. I discussed with her option of doing right sided reterograde pyelogram to assess for any stones on the right, and if there are stones we can address them at that time. Discussed with her the risk of bleeding, infection and injury to the ureter. She understood all the risk and agreed to proceed with left sided ureteroscopy with holmium laser, stone basketting, possible right sided ureteroscopy with holmium laser. Consent for Procedure: I have explained the operation/procedure to the patient, including the risks, benefits, side effects, alternative therapies (including not receiving the proposed treatment or service), the likelihood of the patient achieving his/her goals, and potential recuperation problems for the procedure/sedation/analgesia, as well as any blood products, if indicated. I also explained to the patient the risks, benefits and side effects of the alternatives, as well as the risks related to not receiving the proposed procedure, care, treatment, or services. - Constitutional Constitutional: Denies chills, Denies fever - Cardiovascular Cardiovascular: Denies chest pain, Denies shortness of breath - Respiratory Respiratory: Denies cough, Denies 7 - Gastrointestinal Gastrointestinal: Denies abdominal pain, Denies diarrhea, Denies nausea, Denies vomiting - Genitourinary (Female) Genitourinary: Reports flank pain, Denies dysuria, Denies hematuria Past Medical History Past Medical History: No Reported History Additional Past Medical History / Comment(s): kidney stones and UTI's History of Any Multi-Drug Resistant Organisms: None Reported Past Surgical History: Section Additional Past Surgical History / Comment(s): C/S x 4 Past Anesthesia/Blood Transfusion Reactions: Previous Problems w/ Anesthesia, Motion Sickness, Postoperative Nausea & Vomiting (PONV) Additional Past Anesthesia/Blood Transfusion Reaction / Comment(s): (drop in blood pressure, nausea,vommiting, loss of consciousness-pt not aware of these reactions other than nausea), motion sickness as child Past Psychological History: Anxiety, Depression Additional Psychological History / Comment(s): no current tx Smoking Status: Never smoker Past Alcohol Use History: None Reported Past Drug Use History: Marijuana Additional Drug Use History / Comment(s): "couple joints a day" - Past Family History Father Family Medical History: Coronary Artery Disease (CAD) Additional Family Medical History / Comment(s): dad at 38 from [place] Mother Family Medical History: No Reported History Additional Family Medical History / Comment(s): post hem Medications and Allergies Home Medications Medication Instructions Recorded Confirmed Type Acetaminophen Tab [Tylenol] 975 mg PO Q6H PRN 08/16/20 09/21/20 History traMADol HCl [Ultram] 50 mg PO Q6HR PRN 3 Days #10 tab 09/04/20 09/21/20 Rx Allergies Allergy/AdvReac Type Severity Reaction Status Date / Time ibuprofen Allergy fatigue,vom Verified 09/21/20 09:13 iting,fever Surgical - Exam - General no distress, moderate pain - Eyes normal ocular movement, no icteric - ENT normal nares, normal mucosa - Respiratory normal expansion, normal respiratory effort - Abdomen Abdomen: soft, non tender Assessment and Plan Assessment: 29 yo female with hx of left sided ureteral stone and right sided flank pain -OR for left sided ureteroscopy with holmium laser, stone basketting, possible right sided ureteroscopy with holmium laser and stent placement .
[~2020-09-25 05:57] MED LIST changes: -GENTAMICIN 120 MG in SODIUM CHLORIDE 0.9% 100 ML IVPB PRN; -LACTATED RINGERS 1,000 ML IV SCH
[2020-09-25 06:46] VITALS: RESP 16
[2020-09-25] MEDS ORDERED: LIDOCAINE 1% (10MG/ML) FOR IV START INTRADERMA ONE (06:50)
[2020-09-25] MEDS: LACTATED RINGERS 1,000 ML IV SCH ×2 (06:50→09:43)
[2020-09-25] MEDS ORDERED: SCOPOLAMINE 1.5MG/72HR PATCH TRANSDERM ONE (06:55)
--- NOTE | 2020-09-25 07:18 | XR ---
EXAMINATION TYPE: XR KUB DATE OF EXAM: 09/25/2020 Comparison: 09/04/2020 Clinical History: 29-year-old female PRE-OP: LOCATION OF LEFT RENAL CALCULUS Findings: Left-sided ureteral stent is present. No definite suspicious calcification seen along the course of t he left ureteral stent. Numerous poorly defined calculi are present throughout both kidneys. Tiny phl ebolith within the right side of the pelvis. Nonobstructive bowel gas pattern. Mild stool burden. Impression: The previous calculus at the proximal loop of the left ureteral stent is no longer seen. Numerous sma ll bilateral renal calculi.
[2020-09-25] MEDS ORDERED: PROPOFOL 10 MG/ML 20 ML VIAL IV ONE (07:30)
[2020-09-25] MEDS ORDERED: fentaNYL (PF) 50 MCG/ML 2 ML AMP ONE (07:30)
[2020-09-25] MEDS ORDERED: LIDOCAINE 1% INJ 10MG/ML (20 ML MDV) ONE (07:30)
[2020-09-25] MEDS ORDERED: MIDAZOLAM 2 MG/2 ML VIAL ONE (07:30)
[2020-09-25] MEDS ORDERED: IOPAMIDOL-370 50ML BTL IRRIGATION ONE (07:56)
--- NOTE | 2020-09-25 08:40 | P.OP ---
Date of Procedure: 09/25/20 Preoperative Diagnosis: Left renal calculi Postoperative Diagnosis: Same Procedure(s) Performed: Cystoscopy, left ureteroscopy, holmium laser lithotripsy, stone basketing, stent removal, right retrograde pyelogram Implants: None Anesthesia: ADAMARIS Surgeon: Akbar Doan Estimated Blood Loss (ml): 5 Pathology: none sent Condition: stable Disposition: PACU Indications for Procedure: Ms Galarza is a 29 yo female with hx of left sided ureteral renal stone. She is S/P ureteral stent placement for septic stone, and subsequently underwent stent change for marcio. Her CT showed a 1.3 cm left UPJ stone and two 5mm renal stone. She underwent stage one ureteroscopy on 09/04, she present today for second stage ureteroscopy. She is also been complaining of right flank pain. I discussed with her option of doing right sided reterograde pyelogram to assess f or any stones on the right, and if there are stones we can address them at that time. Discussed with her the risk of bleeding, infection and injury to the ureter. She understood all the risk and agreed to proceed with left sided ureteroscopy with holmium laser, stone basketting, possible right sided ureteroscopy with holmium laser. Operative Findings: Few small calculi within the lower pole Description of Procedure: Patient was brought to the operating room, general anesthesia was induced. She was prepped and draped in sterile fashion and placemed in dorsal lithotomy position. Cystoscopy fitted with a 21-Cymraes sheath was inserted per urethra, cystoscopy was performed showed no abnormality within the bladder. Attention was first carried to the right ureteral orifice which was intubated with a 6- Cymraes open-ended catheter, retrograde pyelogram was performed which showed no filling defect or hydronephrosis on the right side. Attention was then carried to the left side, the stent was removed. The left ureteral orifice was intubated with a Glidewire. Next a 1214 Cymraes access sheath was passed over the Glidewire under fluoroscopy into the proximal ureter. Flexible ureteroscope was inserted through the access sheath, renoscopy was performed which showed stones fragments within the lower pole. Using the holmium laser the stone fragments were further dusted, sizable fragments were removed using the stone basket. Repeat renoscopy showed no additional stones or any sizable fragments. All fragments were smaller than the diameter over the wire. Of note patient had significant parenchymal calcification. Next pullback ureteroscopy was performed showed no injury to the ureter or any ureteral stone. The bladder was emptied at the end of the case. The patient tolerated the procedure well was taken to PACU in stable condition
[2020-09-25 08:42] VITALS: TEMP 97
--- NOTE | 2020-09-25 09:14 | FL ---
EXAMINATION TYPE: FL urography retrograde DATE OF EXAM: 09/25/2020 FLUOROSCOPY Fluoroscopy time of 19 seconds was used during left sided lithotripsy. 4 image/s document/s the proc edure.
[2020-09-25 10:17] VITALS: BP 139/81; PULSE 88
== END 2020-09-25 10:15 | disposition home or self-care (01) ==
LOC: OR 05:57
PROVIDERS: ATTEND Urology
DX: N20.0 Calculus of kidney (principal); F41.9 Anxiety disorder, unspecified; F32.9 Major depressive disorder, single episode, unspecified; Z82.49 Family history of ischemic heart disease and other diseases of the circulatory system; Z88.6 Allergy status to analgesic agent; Z87.442 Personal history of urinary calculi; Z98.891 History of uterine scar from previous surgery; Z87.440 Personal history of urinary (tract) infections
CPT/HCPCS: 81025; 74420; 74018; 52353; C1894; C1758; C1769 ×2; J2250; J1100; J0690; J2405; J2001; J3010; J2704; Q9967

== ENCOUNTER 2021-09-12 12:18 | Emergency (ER) | payer OTHER ==
[2021-09-12 12:46] VITALS: RESP 18; TEMP 98.5
[2021-09-12] MEDS ORDERED: METOCLOPRAMIDE 5 MG/ML 2 ML VIAL IVP STA (14:05)
[2021-09-12] MEDS ORDERED: SODIUM CHLORIDE 0.9% 1,000 ML IV STA (14:05)
[2021-09-12] MEDS ORDERED: ACETAMINOPHEN TAB 500 MG TAB PO STA (14:06)
[2021-09-12] MEDS ORDERED: diphenhydrAMINE 50 MG/ML 1 ML VIAL IVP STA (14:07)
[2021-09-12 14:36] LABS: Basophils % (A) 0 %; Eosinophils # (A) 0.1 k/uL (0-0.7); Eosinophils % (A) 1 %; HCT 41.1 % (34.0-46.0); HGB 13.8 gm/dL (11.4-16.0); Lymphocytes # (A) 1.5 k/uL (1.0-4.8); Lymphocytes % (A) 14 %; MCHC 33.6 g/dL (31.0-37.0); MCV 95.3 fL (80.0-100.0); Mean Platelet Volume 7.4; Monocytes # (A) 0.4 k/uL (0-1.0); Monocytes % (A) 3 %; Neutrophils % (A) 81 %; Platelet Count 386 k/uL (150-450); RBC 4.31 m/uL (3.80-5.40); WBC 11.1 k/uL (3.8-10.6)
[2021-09-12 14:43] LABS: Appearance,Urine Cloudy (Clear); Bacteria,Urine Rare /hpf; Bilirubin,Urine Negative (Negative); Blood,Urine Trace (Negative); Color,Urine Yellow; Glucose,Urine (UA) Negative (Negative); Ketones,Urine Negative (Negative); Leukocyte Esterase,Urine Trace (Negative); Mucus,Urine Rare /hpf; Nitrite,Urine Negative (Negative); Protein,Urine Trace (Negative); RBC,Urine 27 /hpf (0-5); Specific Gravity,Urine 1.012 (1.001-1.035); Squamous Epithelial Cell,Urine 2 /hpf (0-4); Urobilinogen,Urine <2.0 mg/dL (<2.0); WBC,Urine 12 /hpf (0-5)
[2021-09-12 14:49] LABS: ALT 12 U/L (4-34); AST 20 U/L (14-36); African American GFR (CKD) >90 (>60 ml/min/1.73 sqM); Albumin 4.2 g/dL (3.5-5.0); Alkaline Phosphatase 82 U/L (38-126); Anion Gap 13 mmol/L; Blood Urea Nitrogen 10 mg/dL (7-17); Calcium 9.6 mg/dL (8.4-10.2); Carbon Dioxide 21 mmol/L (22-30); Chloride 101 mmol/L (98-107); Glucose 84 mg/dL (74-99); Lipase 67 U/L (23-300); Non-African American GFR(CKD) >90 (>60 ml/min/1.73 sqM); Potassium 3.7 mmol/L (3.5-5.1); Sodium 135 mmol/L (137-145); Total Bilirubin 0.3 mg/dL (0.2-1.3); Total Protein 7.5 g/dL (6.3-8.2)
[2021-09-12] MEDS ORDERED: cefTRIAXone IN SWFI 1,000 MG/10 ML SYRINGE IVP STA (15:25)
--- NOTE | 2021-09-12 15:39 | US ---
EXAMINATION TYPE: US kidneys/renal and bladder DATE OF EXAM: 09/12/2021 COMPARISON: CT dated 07/08/2020, and US dated 05/03/2019 CLINICAL HISTORY: hx renal calculi. EXAM MEASUREMENTS: Right Kidney: 12.2 x 4.7 x 6.2 cm Left Kidney: 12.2 x 5.3 x 5.3 cm Right Kidney: multiple stones with shadowing, has appearance of medullary sponge kidney. Left Kidney: multiple stones with shadowing, has appearance of medullary sponge kidney. Bladder: wnl Bilateral Jets seen: only left jet seen in three minutes of scan time. There is no evidence for hydronephrosis at this point in time. No masses are identified. The urinar y bladder is anechoic. Bilateral ureteral jets are seen. IMPRESSION: Findings compatible with medullary sponge kidney.
--- NOTE | 2021-09-12 15:39 | US ---
EXAMINATION TYPE: Transabdominal DATE OF EXAM: 09/12/2021 2:57 PM COMPARISON: NONE CLINICAL HISTORY: , pelvic pain. EXAM PERFORMED: Transabdominal (TA) EXAM MEASUREMENTS: GESTATIONAL AGE / DATING Physician Established: (11 weeks/6 days) EDC: 03/28/2022 Dates by LMP: LMP unknown Dates by First Scan: No previous this is first scan Dates by Current Scan for: (12 weeks/1 days) EDC: 03/26/2022 MATERNAL ANATOMY Uterus: 14.0 x 7.7 x 11.4 cm Right Ovary: 3.5 x 2.6 x 1.6 cm Left Ovary: 4.4 x 2.7 x 2.9 cm Post CDS / Adnexa: wnl Presence of free fluid: none GESTATION / SURVEY CRL: 5.5 cm (12 weeks/1 days) Yolk Sac (normal less than 6mm): not seen Heart Rate: 156 bpm Rhythm: Normal IUP: Viable IUP Date of LMP: unknown Beta HcG (if available): not available Growth according to dates. No abnormality noted. IMPRESSION: Single viable intrauterine .
--- NOTE | 2021-09-12 16:14 | ED ---
Abdominal Pain HPI - General Chief Complaint: Abdominal Pain Stated Complaint: abdominal pain, 12 weeks preg Time Seen by Provider: 09/12/21 12:45 Source: patient Mode of arrival: ambulatory Limitations: no limitations - History of Present Illness Initial Comments: 30-year-old female who is approximately 12 weeks presents to the emergency room with reported pelvic and back pain. Symptoms have been present for the past one day. Denies any abnormal vaginal bleeding or discharge. Admits to some dysuria. No gross hematuria. Denies changes in her bowel habits. No fevers or chills. She has yet to establish care for this . States that she did have an ultrasound performed and demonstrated normal intrauterine . He does admit to a history of recurrent renal stones. No other alleviating, precipitating or modifying factors - Related Data Home Medications Medication Instructions Recorded Confirmed Acetaminophen Tab [Tylenol] 975 mg PO Q6H PRN 08/16/20 09/25/20 Previous Rx's Medication Instructions Recorded traMADol HCl [Ultram] 50 mg PO Q6HR PRN 3 Days #10 tab 09/04/20 Cephalexin [Keflex] 500 mg PO Q8HR #21 cap 09/25/20 Fluconazole [Diflucan] 150 mg PO DAILY 3 Days #3 tab 09/25/20 traMADol HCL [Ultram] 50 mg PO Q6HR PRN 3 Days #8 tab 09/25/20 Cephalexin [Keflex] 500 mg PO Q6HR #28 cap 09/12/21 Allergies Allergy/AdvReac Type Severity Reaction Status Date / Time ibuprofen Allergy fatigue,vom Verified 09/12/21 12:43 iting,fever Review of Systems ROS Statement: Those systems with pertinent positive or pertinent negative responses have been documented in the HPI. ROS Other: All systems not noted in ROS Statement are negative. Past Medical History Past Medical History: No Reported History Additional Past Medical History / Comment(s): kidney stones and UTI's History of Any Multi-Drug Resistant Organisms: None Reported Past Surgical History: Section Additional Past Surgical History / Comment(s): C/S x 4 Past Anesthesia/Blood Transfusion Reactions: Previous Problems w/ Anesthesia, Motion Sickness, Postoperative Nausea & Vomiting (PONV) Additional Past Anesthesia/Blood Transfusion Reaction / Comment(s): (drop in blood pressure, nausea,vommiting, loss of consciousness-pt not aware of these reactions other than nausea), motion sickness as child Past Psychological History: Anxiety, Depression Smoking Status: Never smoker Past Alcohol Use History: None Reported Past Drug Use History: Marijuana - Past Family History Father Family Medical History: Coronary Artery Disease (CAD) Additional Family Medical History / Comment(s): dad at 38 from [place] Mother Family Medical History: No Reported History Additional Family Medical History / Comment(s): post hem General Exam Limitations: no limitations General appearance: alert, in no apparent distress Head exam: Present: atraumatic, normocephalic, normal inspection Eye exam: Present: normal appearance, PERRL, EOMI. Absent: scleral icterus, conjunctival injection, periorbital swelling ENT exam: Present: normal exam, mucous membranes moist Neck exam: Present: normal inspection. Absent: tenderness, meningismus, lymphadenopathy Respiratory exam: Present: normal lung sounds bilaterally. Absent: respiratory distress, wheezes, rales, rhonchi, stridor Cardiovascular Exam: Present: regular rate, normal rhythm, normal heart sounds. Absent: systolic murmur, diastolic murmur, rubs, gallop, clicks GI/Abdominal exam: Present: soft, normal bowel sounds. Absent: distended, tenderness, guarding, rebound, rigid Extremities exam: Present: normal inspection, full ROM, normal capillary refill. Absent: tenderness, pedal edema, joint swelling, calf tenderness Back exam: Present: normal inspection Neurological exam: Present: alert, oriented X3, CN II-XII intact Psychiatric exam: Present: normal affect, normal mood Skin exam: Present: warm, dry, intact, normal color. Absent: rash Course Vital Signs 09/12/21 09/12/21 12:43 16:25 Temperature 98.5 F 98.5 F Pulse Rate 66 96 Respiratory 18 18 Rate Blood Pressure 145/85 129/66 O2 Sat by Pulse 100 99 Oximetry Medical Decision Making - Medical Decision Making Upon arrival the patient was placed into hallway 15. History and physical exam were performed. Laboratory studies were conducted. Patient has mild leukocytosis of 11.1. Urinalysis demonstrates trace leukocyte esterase, 27 red blood cells and 12 white blood cells. Rare bacteria. Patient given a dose of Rocephin. She is also given Tylenol for pain, Benadryl and Reglan for nausea. 1 L normal saline infused. Ultrasound is performed of the which demonstrates that she is 12 weeks 1 day with a normal intrauterine . Heart rate 156. Ultrasound of the kidneys demonstrates concerning signs for medullary sponge kidney with multiple renal stones. No hydronephrosis. Results are discussed the patient area she feels improved at this time. She will be discharged home and instructed to call and make an appointment with the urologist. Should also make an appointment with her [facility]. States that she does have an appointment on the third. She is instructed to continue taking acetaminophen for pain control. She'll be placed on Keflex 4 times daily as she does report to some bilateral back pain. She agreed to this treatment plan and was discharged home in stable condition - Lab Data Result diagrams: 09/12/21 14:20 09/12/21 14:20 Lab Results 09/12/21 09/12/21 09/12/21 Range/Units 14:12 14:20 14:20 WBC 11.1 H (3.8-10.6) k/uL RBC 4.31 (3.80-5.40) m/uL Hgb 13.8 (11.4-16.0) gm/dL Hct 41.1 (34.0-46.0) % MCV 95.3 (80.0-100.0) fL MCH 32.0 (25.0-35.0) pg MCHC 33.6 (31.0-37.0) g/dL RDW 13.0 (11.5-15.5) % Plt Count 386 (150-450) k/uL MPV 7.4 Neutrophils % 81 % Lymphocytes % 14 % Monocytes % 3 % Eosinophils % 1 % Basophils % 0 % Neutrophils # 9.0 H (1.3-7.7) k/uL Lymphocytes # 1.5 (1.0-4.8) k/uL Monocytes # 0.4 (0-1.0) k/uL Eosinophils # 0.1 (0-0.7) k/uL Basophils # 0.0 (0-0.2) k/uL Sodium (137-145) mmol/L Potassium (3.5-5.1) mmol/L Chloride (98-107) mmol/L Carbon Dioxide (22-30) mmol/L Anion Gap mmol/L BUN (7-17) mg/dL Creatinine (0.52-1.04) mg/dL Est GFR (CKD-EPI)AfAm (>60 ml/min/1.73 sqM) Est GFR (CKD-EPI)NonAf (>60 ml/min/1.73 sqM) Glucose (74-99) mg/dL Calcium (8.4-10.2) mg/dL Total Bilirubin (0.2-1.3) mg/dL AST (14-36) U/L ALT (4-34) U/L Alkaline Phosphatase (38-126) U/L Total Protein (6.3-8.2) g/dL Albumin (3.5-5.0) g/dL Lipase (23-300) U/L Urine Color Yellow Urine Appearance Cloudy H (Clear) Urine pH 8.0 (5.0-8.0) Ur Specific [place] 1.012 (1.001-1.035) Urine Protein Trace H (Negative) Urine Glucose (UA) Negative (Negative) Urine Ketones Negative (Negative) Urine Blood Trace H (Negative) Urine Nitrite Negative (Negative) Urine Bilirubin Negative (Negative) Urine Urobilinogen <2.0 (<2.0) mg/dL Ur Leukocyte Esterase Trace H (Negative) Urine RBC 27 H (0-5) /hpf Urine WBC 12 H (0-5) /hpf Ur Squamous Epith Cells 2 (0-4) /hpf Urine Bacteria Rare H (None) /hpf Urine Mucus Rare H (None) /hpf Blood Type O Positive Blood Type Recheck O Pos Bld Type Recheck Status No 09/12/21 Range/Units 14:20 WBC (3.8-10.6) k/uL RBC (3.80-5.40) m/uL Hgb (11.4-16.0) gm/dL Hct (34.0-46.0) % MCV (80.0-100.0) fL MCH (25.0-35.0) pg MCHC (31.0-37.0) g/dL RDW (11.5-15.5) % Plt Count (150-450) k/uL MPV Neutrophils % % Lymphocytes % % Monocytes % % Eosinophils % % Basophils % % Neutrophils # (1.3-7.7) k/uL Lymphocytes # (1.0-4.8) k/uL Monocytes # (0-1.0) k/uL Eosinophils # (0-0.7) k/uL Basophils # (0-0.2) k/uL Sodium 135 L (137-145) mmol/L Potassium 3.7 (3.5-5.1) mmol/L Chloride 101 (98-107) mmol/L Carbon Dioxide 21 L (22-30) mmol/L Anion Gap 13 mmol/L BUN 10 (7-17) mg/dL Creatinine 0.59 (0.52-1.04) mg/dL Est GFR (CKD-EPI)AfAm >90 (>60 ml/min/1.73 sqM) Est GFR (CKD-EPI)NonAf >90 (>60 ml/min/1.73 sqM) Glucose 84 (74-99) mg/dL Calcium 9.6 (8.4-10.2) mg/dL Total Bilirubin 0.3 (0.2-1.3) mg/dL AST 20 (14-36) U/L ALT 12 (4-34) U/L Alkaline Phosphatase 82 (38-126) U/L Total Protein 7.5 (6.3-8.2) g/dL Albumin 4.2 (3.5-5.0) g/dL Lipase 67 (23-300) U/L Urine Color Urine Appearance (Clear) Urine pH (5.0-8.0) Ur Specific [place] (1.001-1.035) Urine Protein (Negative) Urine Glucose (UA) (Negative) Urine Ketones (Negative) Urine Blood (Negative) Urine Nitrite (Negative) Urine Bilirubin (Negative) Urine Urobilinogen (<2.0) mg/dL Ur Leukocyte Esterase (Negative) Urine RBC (0-5) /hpf Urine WBC (0-5) /hpf Ur Squamous Epith Cells (0-4) /hpf Urine Bacteria (None) /hpf Urine Mucus (None) /hpf Blood Type Blood Type Recheck Bld Type Recheck Status Disposition Clinical Impression: , UTI (urinary tract infection) Disposition: HOME SELF-CARE Condition: Stable Instructions (If sedation given, give patient instructions): Urinary Tract Infection in Women (ED) Additional Instructions: Please follow-up with the [facility] for the remainder of your care. Call and make an appointment with the urologist for your renal stones. Return to the emergency department for any new or worsening symptoms Prescriptions: Cephalexin [Keflex] 500 mg PO Q6HR #28 cap Is patient prescribed a controlled substance at d/c from ED?: No Referrals: None,Stated [Primary Care Provider] - 1-2 days Akbar Doan MD [STAFF PHYSICIAN] - 1-2 days Neli Christie MD [STAFF PHYSICIAN] - 1-2 days Time of Disposition: 16:14
[2021-09-12 16:27] VITALS: BP 129/66; PULSE 96
== END 2021-09-12 16:26 | disposition home or self-care (01) ==
LOC: EC 12:18
DX: O23.41 Unspecified infection of urinary tract in pregnancy, first trimester (principal); N39.0 Urinary tract infection, site not specified; F41.9 Anxiety disorder, unspecified; F32.A Depression, unspecified; Z3A.12 12 weeks gestation of pregnancy
CPT/HCPCS: 36415; 86900; 86901; 80053; 83690; 85025; 81001; 87086; 76801; 76817; 76770; 99284; 96374; 96375 ×2; 96361; J1200; J2765; J0696

== ENCOUNTER 2021-10-26 16:36 | Observation (INO) | payer OTHER ==
[2021-10-26] MEDS ORDERED: PANTOPRAZOLE 40 MG/10 ML VIAL IVP STA (17:33)
[2021-10-26] MEDS ORDERED: METOCLOPRAMIDE 5 MG/ML 2 ML VIAL IVP STA (17:33)
[2021-10-26] MEDS ORDERED: SODIUM CHLORIDE 0.9% 2,000 ML IV STA (17:33)
[2021-10-26 18:22] LABS: Basophils % (A) 0 %; Eosinophils # (A) 0.3 k/uL (0-0.7); Eosinophils % (A) 2 %; HCT 33.8 % (34.0-46.0); HGB 11.6 gm/dL (11.4-16.0); Lymphocytes # (A) 0.7 k/uL (1.0-4.8); Lymphocytes % (A) 5 %; MCHC 34.3 g/dL (31.0-37.0); MCV 96.4 fL (80.0-100.0); Mean Platelet Volume 7.2; Monocytes # (A) 0.4 k/uL (0-1.0); Monocytes % (A) 3 %; Neutrophils # (A) 11.3 k/uL (1.3-7.7); Neutrophils % (A) 89 %; Platelet Count 302 k/uL (150-450); RBC 3.51 m/uL (3.80-5.40); WBC 12.7 k/uL (3.8-10.6)
[2021-10-26 18:33] LABS: Appearance,Urine Clear (Clear); Bacteria,Urine Rare /hpf; Bilirubin,Urine Negative (Negative); Blood,Urine Trace (Negative); Color,Urine Yellow; Glucose,Urine (UA) Negative (Negative); Ketones,Urine 2+ (Negative); Leukocyte Esterase,Urine Large (Negative); Mucus,Urine Rare /hpf; Nitrite,Urine Negative (Negative); PH, Urine 7.5 (5.0-8.0); Protein,Urine Trace (Negative); RBC,Urine 27 /hpf (0-5); Specific Gravity,Urine 1.014 (1.001-1.035); Squamous Epithelial Cell,Urine 1 /hpf (0-4); Urobilinogen,Urine <2.0 mg/dL (<2.0); WBC,Urine 57 /hpf (0-5)
[2021-10-26 18:36] LABS: ALT 13 U/L (4-34); AST 24 U/L (14-36); African American GFR (CKD) >90 (>60 ml/min/1.73 sqM); Albumin 3.7 g/dL (3.5-5.0); Alkaline Phosphatase 77 U/L (38-126); Anion Gap 6 mmol/L; Blood Urea Nitrogen 8 mg/dL (7-17); Calcium 9.6 mg/dL (8.4-10.2); Carbon Dioxide 24 mmol/L (22-30); Chloride 102 mmol/L (98-107); Glucose 87 mg/dL (74-99); Lipase 33 U/L (23-300); Non-African American GFR(CKD) >90 (>60 ml/min/1.73 sqM); Potassium 3.3 mmol/L (3.5-5.1); Sodium 132 mmol/L (137-145); Total Bilirubin 0.5 mg/dL (0.2-1.3); Total Protein 6.7 g/dL (6.3-8.2)
--- NOTE | 2021-10-26 18:59 | ED ---
Abdominal Pain HPI - General Chief Complaint: Abdominal Pain Stated Complaint: 18wks preg/Abd Pain Source: patient Mode of arrival: ambulatory Limitations: no limitations - History of Present Illness Initial Comments: Patient is a 30-year-old female with past medical history of renal stones who presents to the emergency department with upper abdominal pain, nausea and vomiting. She states that she woke up on morning with consistent pain to her left upper quadrant. States that it is a sharp shooting pain that radiates straight through to her back. She has been taking Tylenol however has had no relief. She has been unable to hold down any food or drink. She denies any lower abdominal pain or vaginal bleeding. Patient is currently 18 weeks . She follows with Dr. Christie. She is . Last doctor's appointment was on the . She denies any hematemesis. Denies changes in her urination to include dysuria, hematuria or difficulty voiding. No changes in her bowel habits to include diarrhea, black or bloody stools. Does admit to some constipation. She denies that her pain is consistent with her previous kidney stones as her pain is not lower down in her groin. No other alleviating, precipitating or modifying factors - Related Data Home Medications Medication Instructions Recorded Confirmed Acetaminophen Tab [Tylenol] 650 mg PO Q6H PRN 08/16/20 10/26/21 Tnf-Khno-Cbyxd Acid 1 cap PO DAILY 10/26/21 10/26/21 [-U Capsule (formulary)] Allergies Allergy/AdvReac Type Severity Reaction Status Date / Time ibuprofen Allergy fatigue,vom Verified 10/26/21 19:26 iting,fever Review of Systems ROS Statement: Those systems with pertinent positive or pertinent negative responses have been documented in the HPI. ROS Other: All systems not noted in ROS Statement are negative. Past Medical History Past Medical History: No Reported History Additional Past Medical History / Comment(s): kidney stones and UTI's History of Any Multi-Drug Resistant Organisms: None Reported Past Surgical History: Section Additional Past Surgical History / Comment(s): C/S x 4 Past Anesthesia/Blood Transfusion Reactions: Previous Problems w/ Anesthesia, Motion Sickness, Postoperative Nausea & Vomiting (PONV) Additional Past Anesthesia/Blood Transfusion Reaction / Comment(s): (drop in blood pressure, nausea,vommiting, loss of consciousness-pt not aware of these reactions other than nausea), motion sickness as child Past Psychological History: Anxiety, Depression Smoking Status: Never smoker Past Alcohol Use History: None Reported Past Drug Use History: Marijuana - Past Family History Father Family Medical History: Coronary Artery Disease (CAD) Additional Family Medical History / Comment(s): dad at 38 from [place] Mother Family Medical History: No Reported History Additional Family Medical History / Comment(s): post hem General Exam Limitations: no limitations Course Vital Signs 10/26/21 10/26/21 10/26/21 16:37 21:12 22:29 Temperature 98.3 F Pulse Rate 133 H 120 H 119 H Respiratory 20 18 18 Rate Blood Pressure 131/76 111/50 115/57 O2 Sat by Pulse 100 98 97 Oximetry Medical Decision Making - Medical Decision Making Upon arrival patient is placed into room 21. History and physical exam is performed. IV access established laboratory studies were conducted. Patient has a mild white count 12.7. Sodium low at 132, potassium 3.3. Urinalysis does demonstrate large leukocyte esterase, 57 white blood cells and rare bacteria. Covid is not detected. I did perform an ultrasound of the patient's abdomen which does not demonstrate any acute findings. ultrasound was also performed which demonstrates an 18 week, 2 day fetus with a heart rate of 192. Patient was given a liter bolus of normal saline, 40 mg of Protonix, atenolol grams Reglan and a dose of Benadryl. Patient is reevaluated and reports improvement in her symptoms however she continues to have a persistent heart rate of 120. Because of this I did call and speak with Dr. Monge who agreed to admit the patient for continued fluid hydration. Patient agreed to this plan and was taken to the floor in stable condition - Lab Data Result diagrams: 10/26/21 18:14 10/26/21 18:14 Lab Results 10/26/21 10/26/21 10/26/21 Range/Units 18:14 18:14 18:14 WBC 12.7 H (3.8-10.6) k/uL RBC 3.51 L (3.80-5.40) m/uL Hgb 11.6 (11.4-16.0) gm/dL Hct 33.8 L (34.0-46.0) % MCV 96.4 (80.0-100.0) fL MCH 33.0 (25.0-35.0) pg MCHC 34.3 (31.0-37.0) g/dL RDW 13.0 (11.5-15.5) % Plt Count 302 (150-450) k/uL MPV 7.2 Neutrophils % 89 % Lymphocytes % 5 % Monocytes % 3 % Eosinophils % 2 % Basophils % 0 % Neutrophils # 11.3 H (1.3-7.7) k/uL Lymphocytes # 0.7 L (1.0-4.8) k/uL Monocytes # 0.4 (0-1.0) k/uL Eosinophils # 0.3 (0-0.7) k/uL Basophils # 0.0 (0-0.2) k/uL Sodium 132 L (137-145) mmol/L Potassium 3.3 L (3.5-5.1) mmol/L Chloride 102 (98-107) mmol/L Carbon Dioxide 24 (22-30) mmol/L Anion Gap 6 mmol/L BUN 8 (7-17) mg/dL Creatinine 0.78 (0.52-1.04) mg/dL Est GFR (CKD-EPI)AfAm >90 (>60 ml/min/1.73 sqM) Est GFR (CKD-EPI)NonAf >90 (>60 ml/min/1.73 sqM) Glucose 87 (74-99) mg/dL Plasma Lactic Acid [place] (0.7-2.0) mmol/L Calcium 9.6 (8.4-10.2) mg/dL Total Bilirubin 0.5 (0.2-1.3) mg/dL AST 24 (14-36) U/L ALT 13 (4-34) U/L Alkaline Phosphatase 77 (38-126) U/L Total Protein 6.7 (6.3-8.2) g/dL Albumin 3.7 (3.5-5.0) g/dL Lipase 33 (23-300) U/L Urine Color Yellow Urine Appearance Clear (Clear) Urine pH 7.5 (5.0-8.0) Ur Specific [place] 1.014 (1.001-1.035) Urine Protein Trace H (Negative) Urine Glucose (UA) Negative (Negative) Urine Ketones 2+ H (Negative) Urine Blood Trace H (Negative) Urine Nitrite Negative (Negative) Urine Bilirubin Negative (Negative) Urine Urobilinogen <2.0 (<2.0) mg/dL Ur Leukocyte Esterase Large H (Negative) Urine RBC 27 H (0-5) /hpf Urine WBC 57 H (0-5) /hpf Ur Squamous Epith Cells 1 (0-4) /hpf Urine Bacteria Rare H (None) /hpf Urine Mucus Rare H (None) /hpf 10/26/21 Range/Units 18:14 WBC (3.8-10.6) k/uL RBC (3.80-5.40) m/uL Hgb (11.4-16.0) gm/dL Hct (34.0-46.0) % MCV (80.0-100.0) fL MCH (25.0-35.0) pg MCHC (31.0-37.0) g/dL RDW (11.5-15.5) % Plt Count (150-450) k/uL MPV Neutrophils % % Lymphocytes % % Monocytes % % Eosinophils % % Basophils % % Neutrophils # (1.3-7.7) k/uL Lymphocytes # (1.0-4.8) k/uL Monocytes # (0-1.0) k/uL Eosinophils # (0-0.7) k/uL Basophils # (0-0.2) k/uL Sodium (137-145) mmol/L Potassium (3.5-5.1) mmol/L Chloride (98-107) mmol/L Carbon Dioxide (22-30) mmol/L Anion Gap mmol/L BUN (7-17) mg/dL Creatinine (0.52-1.04) mg/dL Est GFR (CKD-EPI)AfAm (>60 ml/min/1.73 sqM) Est GFR (CKD-EPI)NonAf (>60 ml/min/1.73 sqM) Glucose (74-99) mg/dL Plasma Lactic Acid [place] 1.1 (0.7-2.0) mmol/L Calcium (8.4-10.2) mg/dL Total Bilirubin (0.2-1.3) mg/dL AST (14-36) U/L ALT (4-34) U/L Alkaline Phosphatase (38-126) U/L Total Protein (6.3-8.2) g/dL Albumin (3.5-5.0) g/dL Lipase (23-300) U/L Urine Color Urine Appearance (Clear) Urine pH (5.0-8.0) Ur Specific [place] (1.001-1.035) Urine Protein (Negative) Urine Glucose (UA) (Negative) Urine Ketones (Negative) Urine Blood (Negative) Urine Nitrite (Negative) Urine Bilirubin (Negative) Urine Urobilinogen (<2.0) mg/dL Ur Leukocyte Esterase (Negative) Urine RBC (0-5) /hpf Urine WBC (0-5) /hpf Ur Squamous Epith Cells (0-4) /hpf Urine Bacteria (None) /hpf Urine Mucus (None) /hpf - EKG Data EKG Comments: EKG demonstrates a sinus tachycardia with a ventricular rate of 118. Pr interval 143. QRS 93. QTC of 417. No acute ST segment elevations or depressions Disposition Clinical Impression: Abdominal pain, Pyelonephritis, Tachycardia, Hyponatremia, Hypokalemia Disposition: ADMITTED IP TO THIS HOSP Condition: Stable Is patient prescribed a controlled substance at d/c from ED?: No Decision to Admit Reason: Admit from EC Decision Date: 10/26/21 Decision Time: 22:04
--- NOTE | 2021-10-26 19:16 | US ---
EXAMINATION TYPE: US abdomen limited DATE OF EXAM: 10/26/2021 COMPARISON: US 2020, CT 2019 CLINICAL HISTORY: ruq. Abdomen pain x couple days EXAM MEASUREMENTS: Liver Length: 18.5 cm Gallbladder Wall: 0.2 cm CBD: 0.4 cm Right Kidney: 12.6 x 5.3 x 5.5 cm Pancreas: obscured by overlying midline bowel gas Liver: enlarged Gallbladder: wnl Evidence for sonographic Aceves's sign: no CBD: visualized portions wnl, limited by overlying bowel gas Right Kidney: multiple echogenic foci, has appearance of medullary sponge kidney IMPRESSION: No evidence for acute intra-abdominal process.
--- NOTE | 2021-10-26 19:18 | US ---
EXAMINATION TYPE: US OB >= 14 wk fetus DATE OF EXAM: 10/26/2021 COMPARISON: US 2020 CLINICAL HISTORY: abd painAbdomen pain x couple days TECHNIQUE: GESTATIONAL AGE / DATING Physician Established: (18 weeks/1 days) EDC: 03/28/2022 Dates by LMP: LMP unknown Dates by First Scan: (18 weeks/3 days) EDC: 03/26/2022 Dates by Current Scan: (18 weeks/0 days) EDC: 03/29/2022 Beta HCG (if available): NA SURVEY IUP: Single PLACENTA: Anterior PREVIA: Low Lying - tip of placenta 1.9cm from cervix YANDY: 12.2 cm Normal CERVICAL LENGTH (transabdominal: norm > 3.0cm): 4.0 cm BIOMETRY PRESENTATION: Breech BPD: 4.0 cm 18 weeks / 2 days HC: 14.8 cm 18 weeks / 0 days AC: 11.5 cm 17 weeks / 2 days FL: 2.8 cm 18 weeks / 3 days ESTIMATED WEIGHT IN GRAMS: 212 grams ESTIMATED WEIGHT IN LBS/OZ: 0 lbs. 7 oz. WEIGHT PERCENTAGE BASED ON ESTABLISHED DATES: 28% HC/AC: 1.29 Normal FL/AC: 24% HEART RATE: 192 bpm RHYTHM: Normal IMPRESSION: 1. Single live intrauterine as described above. 2. Low Lying placenta - tip of placenta 1.9cm from cervix
[2021-10-26] MEDS ORDERED: POTASSIUM CHLORIDE ER 20 MEQ TAB.ER PO STA (20:25)
[2021-10-26] MEDS ORDERED: cefTRIAXone IN SWFI 1,000 MG/10 ML SYRINGE IVP STA (20:26)
[2021-10-26] MEDS ORDERED: NALOXONE 0.4 MG/ML 1 ML VIAL IV PRN (22:06)
[2021-10-26] MEDS ORDERED: diphenhydrAMINE 50 MG/ML 1 ML VIAL IVP PRN (22:15)
[2021-10-26] MEDS: ACETAMINOPHEN TAB 325 MG TAB PO PRN (23:47)
[2021-10-26] MEDS: SODIUM CHLORIDE 0.9% 1,000 ML IV SCH (23:48)
[2021-10-27] MEDS: METOCLOPRAMIDE 5 MG/ML 2 ML VIAL IVP PRN ×3 (04:15→23:18)
[2021-10-27] MEDS: ACETAMINOPHEN TAB 325 MG TAB PO PRN ×4 (05:34→23:08)
[2021-10-27 07:53] LABS: Basophils % (A) 0 %; Eosinophils % (A) 0 %; HCT 31.5 % (34.0-46.0); HGB 10.8 gm/dL (11.4-16.0); Lymphocytes # (A) 0.8 k/uL (1.0-4.8); Lymphocytes % (A) 7 %; MCH 33.3 pg (25.0-35.0); MCHC 34.3 g/dL (31.0-37.0); Mean Platelet Volume 7.2; Monocytes # (A) 0.5 k/uL (0-1.0); Monocytes % (A) 4 %; Neutrophils # (A) 9.7 k/uL (1.3-7.7); Neutrophils % (A) 88 %; Platelet Count 257 k/uL (150-450); RBC 3.24 m/uL (3.80-5.40); WBC 11.1 k/uL (3.8-10.6)
[2021-10-27 08:07] LABS: African American GFR (CKD) >90 (>60 ml/min/1.73 sqM); Anion Gap 6 mmol/L; Blood Urea Nitrogen 6 mg/dL (7-17); Calcium 8.1 mg/dL (8.4-10.2); Carbon Dioxide 18 mmol/L (22-30); Chloride 107 mmol/L (98-107); Glucose 92 mg/dL (74-99); Non-African American GFR(CKD) >90 (>60 ml/min/1.73 sqM); Potassium 3.2 mmol/L (3.5-5.1); Sodium 131 mmol/L (137-145)
[2021-10-27] MEDS ORDERED: cefTRIAXone IN SWFI 1,000 MG/10 ML SYRINGE IVP SCH (09:00)
--- NOTE | 2021-10-27 10:32 | P.HPOB ---
History of Present Illness H&P Date: 10/27/21 Chief Complaint: Nausea, vomiting, left sided abdominal pain This is a 30 year old 5 para 4004 woman with an estimated due date of 03/28/2022 who presents at 18 weeks gestation with 48 hours of worsening nausea, vomiting and left upper abdominal pain. She was evaluated in the emergency room and was found to have a grossly positive urinalysis and tachycardia. Her past medical history is significant for recurrent bilateral renal calculi and possible medullary sponge kidney. She has undergone several procedures in the past 2 years to address obstructing kidney stones. She denies any vaginal bleeding, dysuria or hematuria. She feels minimal movement this early in the . ultrasound confirms intrauterine with tachycardia, heart rate greater than 190. Size consistent with dates of approximately 18 weeks one day. Low-lying placenta with tip of anterior percentile being 1.9 cm from the cervical os. Normal YANDY and cervical length. Limited abdominal ultrasound performed in the emergency room was negative for an y acute process. Kidneys were not well visualized. Right kidney only was visualized and multiple foci consistent with calculi were noted. This morning she reports that her nausea and vomiting have resolved however overall she feels sick and very cold. She denies vaginal bleeding or hematuria. The pain is now more localized to the mid left abdomen and back. She did have a temperature of 101.3 at 2300. Review of Systems Constitutional: Reports chills, Reports fatigue, Reports fever, Reports malaise Cardiovascular: Reports rapid heart beat, Denies chest pain, Denies irregular heart beat Respiratory: Denies cough, Denies dyspnea Gastrointestinal: Reports abdominal pain, Reports heartburn, Reports nausea, Denies BRBPR, Denies constipation, Denies melena, Denies vomiting Genitourinary: Reports flank pain, Reports kidney stones, Denies abnormal vag inal bleeding, Denies difficulty voiding, Denies dysuria, Denies hematuria, Denies pelvic pain, Denies urgency Menstruation: Reports as per HPI Musculoskeletal: Denies myalgias Integumentary: Denies rash Neurological: Denies headaches Psychiatric: Reports anxiety, Reports depression Past Medical History Past Medical History: No Reported History Additional Past Medical History / Comment(s): kidney stones and UTI's, medullary sponge kidney History of Any Multi-Drug Resistant Organisms: None Reported Past Surgical History: Section Additional Past Surgical History / Comment(s): C/S x 4 Past Anesthesia/Blood Transfusion Reactions: Previous Problems w/ Anesthesia, Motion Sickness, Postoperative Nausea & Vomiting (PONV) Additional Past Anesthesia/Blood Transfusion Reaction / Comment(s): (drop in blood pressure, nausea,vommiting, loss of consciousness-pt not aware of these reactions other than nausea), motion sickness as child Past Psychological History: Anxiety, Depression Smoking Status: Never smoker Past Alcohol Use History: None Reported Past Drug Use History: Marijuana - Past Family History Father Family Medical History: Coronary Artery Disease (CAD) Additional Family Medical History / Comment(s): dad at 38 from [place] Mother Family Medical History: No Reported History Additional Family Medical History / Comment(s): post hem Medications and Allergies Home Medications Medication Instructions Recorded Confirmed Type Acetaminophen Tab [Tylenol] 650 mg PO Q6H PRN 08/16/20 10/26/21 History Uta-Ahyi-Mooll Acid 1 cap PO DAILY 10/26/21 10/26/21 History [-U Capsule (formulary)] Allergies Allergy/AdvReac Type Severity Reaction Status Date / Time ibuprofen Allergy fatigue,vom Verified 10/26/21 19:26 iting,fever Exam Vital Signs Temp Pulse Pulse Resp BP BP Pulse Ox 10/27/21 08:00 98.7 F 111 H 16 108/63 98 10/27/21 04:00 99.1 F 116 H 18 129/77 99 10/26/21 23:21 101.3 F H 123 H 16 125/71 10/26/21 22:29 119 H 18 115/57 97 10/26/21 21:12 120 H 18 111/50 98 10/26/21 16:37 98.3 F 133 H 20 131/76 100 Intake and Output 10/26/21 10/27/21 10/27/21 22:59 06:59 14:59 Other: # Voids 3 Weight 72.575 kg 72.575 kg This is a pale and acutely ill appearing female. Notable chills, right gutters. HEENT exam is unremarkable. Her breathing is unlabored and lungs are clear to auscultation bilaterally. Heart is regular but mildly tachycardic. She has left CVA tenderness. The abdomen is soft and nontender with uterine fundus below the level of the umbilicus. There is no rebound or guarding. Pelvic exam is deferred. Extremities are free of any rash or edema. Results Result Diagrams: 10/27/21 07:10 10/27/21 07:10 Abnormal Lab Results - Last 24 Hours (Table) 10/26/21 10/26/21 10/26/21 Range/Units 18:14 18:14 18:14 WBC 12.7 H (3.8-10.6) k/uL RBC 3.51 L (3.80-5.40) m/uL Hgb (11.4-16.0) gm/dL Hct 33.8 L (34.0-46.0) % Neutrophils # 11.3 H (1.3-7.7) k/uL Lymphocytes # 0.7 L (1.0-4.8) k/uL Sodium 132 L (137-145) mmol/L Potassium 3.3 L (3.5-5.1) mmol/L Carbon Dioxide (22-30) mmol/L BUN (7-17) mg/dL Calcium (8.4-10.2) mg/dL Urine Protein Trace H (Negative) Urine Ketones 2+ H (Negative) Urine Blood Trace H (Negative) Ur Leukocyte Esterase Large H (Negative) Urine RBC 27 H (0-5) /hpf Urine WBC 57 H (0-5) /hpf Urine Bacteria Rare H (None) /hpf Urine Mucus Rare H (None) /hpf 10/27/21 10/27/21 Range/Units 07:10 07:10 WBC 11.1 H (3.8-10.6) k/uL RBC 3.24 L (3.80-5.40) m/uL Hgb 10.8 L (11.4-16.0) gm/dL Hct 31.5 L (34.0-46.0) % Neutrophils # 9.7 H (1.3-7.7) k/uL Lymphocytes # 0.8 L (1.0-4.8) k/uL Sodium 131 L (137-145) mmol/L Potassium 3.2 L (3.5-5.1) mmol/L Carbon Dioxide 18 L (22-30) mmol/L BUN 6 L (7-17) mg/dL Calcium 8.1 L (8.4-10.2) mg/dL Urine Protein (Negative) Urine Ketones (Negative) Urine Blood (Negative) Ur Leukocyte Esterase (Negative) Urine RBC (0-5) /hpf Urine WBC (0-5) /hpf Urine Bacteria (None) /hpf Urine Mucus (None) /hpf Microbiology - Last 24 Hours (Table) 10/26/21 18:14 Urine Culture - Preliminary Urine,Clean Catch US - abdomen: report reviewed Assessment and Plan (1) 18 weeks gestation of Narrative/Plan: 30-year-old 5 para 4004 at 18 weeks gestation admitted for acute pyelonephritis, possible obstructing kidney stones with a history of bilateral renal calculi and medullary sponge kidney. status currently reassuring. Of note low-lying anterior placenta with history of 4 previous sections. Will be followed in the outpatient setting for increased risk of placenta accreta. Placentation is Not in acute issue at this time. Current Visit: Yes Status: Acute Code(s): Z3A.18 - 18 WEEKS GESTATION OF SNOMED Code(s): 15347001 (2) Renal calculi Narrative/Plan: Long-standing history of bilateral renal calculi and obstructing stones. P ossible medullary sponge kidney. I will get a formal bilateral renal ultrasound and consider urology consultation. Current Visit: Yes Status: Acute Code(s): N20.0 - CALCULUS OF KIDNEY SNOMED Code(s): 79641965 (3) Abdominal pain Current Visit: Yes Status: Acute Code(s): R10.9 - UNSPECIFIED ABDOMINAL PAIN SNOMED Code(s): 75290450 (4) Hypokalemia Current Visit: Yes Status: Acute Code(s): E87.6 - HYPOKALEMIA SNOMED Code(s): 32076190 (5) Pyelonephritis Narrative/Plan: Temperature of 101.3 last night. Tylenol when necessary. She has received 1 dose of Rocephin. Urine cultures are pending. Her tachycardia is improving with fluid resuscitation and her white blood cell count is currently normal for at 11.3. In light of her and complicated renal status I would recommend inpatient management with IV antibiotics until at least 24 hours afebrile. Current Visit: Yes Status: Acute Code(s): N12 - TUBULO-INTERSTITIAL NEPHRITIS, NOT SPCF ACUTE OR CHRONIC SNOMED Code(s): 01297062 (6) Tachycardia Current Visit: Yes Status: Acute Code(s): R00.0 - TACHYCARDIA, UNSPECIFIED SNOMED Code(s): 5395980 Time with Patient: Greater than 30
[2021-10-27] MEDS ORDERED: POTASSIUM CHLORIDE 20 MEQ in WATER FOR INJECTION 1 100ML.BAG IVPB STA (10:33)
[2021-10-27] MEDS: PANTOPRAZOLE 40 MG/10 ML VIAL IVP SCH ×2 (11:10→21:14)
--- NOTE | 2021-10-27 11:37 | US ---
EXAMINATION TYPE: US kidneys/renal and bladder DATE OF EXAM: 10/27/2021 COMPARISON: US CLINICAL HISTORY: Eval hydronephrosis, obstructing calculi. ABD pain, fever, h/o sponge kidney EXAM MEASUREMENTS: Right Kidney: 11.9 x 5.5 x 5.3 cm Left Kidney: 11.1 x 5.4 x 4.6 cm Right Kidney: Sponge kidney appearance with mild hydro Left Kidney: Sponge kidney appearance with probable 9mm calculi mid, no evidence of hydro at this claudette e Bladder: possible 8mm calculus at right ureterovesicular junction, however right jet was visualized Bilateral Jets seen: Yes There is no evidence for hydronephrosis at this point in time. No nephrolithiasis is seen. No pierre s are identified. The urinary bladder is anechoic. Bilateral ureteral jets are seen. IMPRESSION: 1. 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 2. Possible right partially/nonobstructing ureterovesicular junction calculus. No evidence of hydrone phrosis.
[2021-10-27] MEDS ORDERED: POTASSIUM CHLORIDE ER 20 MEQ TAB.ER PO STA (12:29)
[2021-10-27] MEDS: 0.9% NACL WITH KCL 20 MEQ/L 1,000 ML IV SCH (13:37)
[2021-10-27] MEDS: SODIUM CHLORIDE 0.9% 1,000 ML IV SCH (19:59)
[2021-10-28] MEDS: 0.9% NACL WITH KCL 20 MEQ/L 1,000 ML IV SCH (03:50)
[2021-10-28 06:52] LABS: Basophils % (A) 0 %; Eosinophils # (A) 0.1 k/uL (0-0.7); Eosinophils % (A) 1 %; HCT 33.6 % (34.0-46.0); HGB 11.1 gm/dL (11.4-16.0); Lymphocytes # (A) 0.8 k/uL (1.0-4.8); Lymphocytes % (A) 8 %; MCH 32.5 pg (25.0-35.0); MCV 98.7 fL (80.0-100.0); Mean Platelet Volume 7.1; Monocytes # (A) 0.4 k/uL (0-1.0); Monocytes % (A) 4 %; Neutrophils % (A) 86 %; Platelet Count 279 k/uL (150-450); RDW 13.6 % (11.5-15.5); WBC 10.5 k/uL (3.8-10.6)
[2021-10-28 07:08] LABS: African American GFR (CKD) >90 (>60 ml/min/1.73 sqM); Anion Gap 6 mmol/L; Blood Urea Nitrogen 6 mg/dL (7-17); Carbon Dioxide 18 mmol/L (22-30); Chloride 108 mmol/L (98-107); Glucose 83 mg/dL (74-99); Non-African American GFR(CKD) >90 (>60 ml/min/1.73 sqM); Potassium 3.4 mmol/L (3.5-5.1); Sodium 132 mmol/L (137-145)
[2021-10-28] MEDS: PANTOPRAZOLE 40 MG/10 ML VIAL IVP SCH ×2 (09:32→20:47)
--- NOTE | 2021-10-28 11:27 | P.PNOBGAP ---
Subjective - Subjective Principal diagnosis: Pyelonephritis, kidney stones Interval history: Janeth past 2 stones in her urine this morning. She reports she is feeling significantly better however did have an episode of emesis this morning. She has not had a bowel movement for 5 days. Temperature 100.5 at approximately 1550, 100.2 at approximately 2300 yesterday. Afebrile currently. Denies hematuria or vaginal bleeding. Antepartum ROS: Denies loss of fluid, Denies vaginal bleeding Objective - Vital Signs Vital Signs: Vital Signs Temp Pulse Resp BP BP Pulse Ox 10/28/21 05:29 98.6 F 10/28/21 03:51 98.0 F 86 14 100/58 99 10/28/21 00:00 100.2 F H 113 H 16 98/57 100 10/27/21 19:53 98.4 F 100 16 116/57 99 10/27/21 15:53 100.5 F H 117 H 17 122/72 98 Intake and Output 10/27/21 10/28/21 10/28/21 22:59 06:59 14:59 Intake Total 450 450 Balance 450 450 Intake: IV 450 450 - Exam FHR: auscultation normal Abdomen: Present: normal appearance, soft, tenderness (Mild bilateral CVA tenderness) Uterus: Present: normal. Absent: tenderness - Labs Labs: Abnormal Labs 10/26/21 10/26/21 10/26/21 18:14 18:14 18:14 WBC 12.7 H RBC 3.51 L Hgb Hct 33.8 L Neutrophils # 11.3 H Lymphocytes # 0.7 L Sodium 132 L Potassium 3.3 L Chloride Carbon Dioxide BUN Calcium Urine Protein Trace H Urine Ketones 2+ H Urine Blood Trace H Ur Leukocyte Esterase Large H Urine RBC 27 H Urine WBC 57 H Urine Bacteria Rare H Urine Mucus Rare H 10/27/21 10/27/21 10/28/21 07:10 07:10 06:38 WBC 11.1 H RBC 3.24 L Hgb 10.8 L Hct 31.5 L Neutrophils # 9.7 H Lymphocytes # 0.8 L Sodium 131 L 132 L Potassium 3.2 L 3.4 L Chloride 108 H Carbon Dioxide 18 L 18 L BUN 6 L 6 L Calcium 8.1 L 8.0 L Urine Protein Urine Ketones Urine Blood Ur Leukocyte Esterase Urine RBC Urine WBC Urine Bacteria Urine Mucus 10/28/21 06:38 WBC RBC 3.40 L Hgb 11.1 L Hct 33.6 L Neutrophils # 9.0 H Lymphocytes # 0.8 L Sodium Potassium Chloride Carbon Dioxide BUN Calcium Urine Protein Urine Ketones Urine Blood Ur Leukocyte Esterase Urine RBC Urine WBC Urine Bacteria Urine Mucus Assessment and Plan (1) 18 weeks gestation of Current Visit: Yes Status: Acute Code(s): Z3A.18 - 18 WEEKS GESTATION OF SNOMED Code(s): 38670572 (2) Renal calculi Narrative/Plan: Kidney and bladder ultrasound confirms presence of bilateral renal calculi yest erday with stone in the right UVJ, nonobstructing. She does report having passed 2 small stones this morning and is feeling better. Current Visit: Yes Status: Acute Code(s): N20.0 - CALCULUS OF KIDNEY SNOMED Code(s): 98272457 (3) Abdominal pain Current Visit: Yes Status: Acute Code(s): R10.9 - UNSPECIFIED ABDOMINAL PAIN SNOMED Code(s): 62476480 (4) Hypokalemia Narrative/Plan: Oral replacement as indicated. Current Visit: Yes Status: Acute Code(s): E87.6 - HYPOKALEMIA SNOMED Code(s): 71437123 (5) Pyelonephritis Narrative/Plan: Status post 2 doses of IV Rocephin. White count has normalized. Unfortunately she did have fevers within the last 14 hours. The urine culture is still pending at this time. I reviewed with Janeth that I recommend inpatient IV antibiotics until she is at least 24 hours afebrile before consideration of discharge home with oral antibiotics. Additionally, I would like to await cultures to choose outpatient management, they should be back today preliminarily. Current Visit: Yes Status: Acute Code(s): N12 - TUBULO-INTERSTITIAL NEPHRITIS, NOT SPCF ACUTE OR CHRONIC SNOMED Code(s): 63215371 (6) Tachycardia Narrative/Plan: Resolved with fluid management. We will Hep-Lock IV. Current Visit: Yes Status: Acute Code(s): R00.0 - TACHYCARDIA, UNSPECIFIED SNOMED Code(s): 6966110 Plan: 30 year old 5 para 4 at approximate 18 weeks gestation with pyelonephritis, kidney stones and history of medullary sponge kidney, recurrent urinary tract infections. She is status post 2 doses of IV Rocephin and her white count has normalized. She has had fever greater than 100.5 within the last 24 hours. With her, located history I recommend she be at least 24 hours afebrile on IV antibiotics port before transitioning to oral antibiotics. The patient strongly desires discharge home. If she remains afebrile throughout the day and culture results indicate antibiotic for home management she can be discharged later today.
[2021-10-28] MEDS ORDERED: SENNOSIDES 8.6 MG TAB PO PRN (11:28)
[2021-10-28] MEDS ORDERED: METOCLOPRAMIDE 10 MG TAB PO PRN (11:29)
[2021-10-28] MEDS ORDERED: PRENATAL VIT-IRON-FOLIC ACID 1 EACH CAP PO SCH (11:30)
[2021-10-28 12:33] VITALS: BP 131/62; PULSE 107; RESP 15
[2021-10-28] MEDS: ACETAMINOPHEN TAB 325 MG TAB PO PRN (19:42)
[2021-10-28 19:53] VITALS: TEMP 98.5
--- NOTE | 2021-10-28 20:26 | P.DS ---
Providers Date of admission: 10/26/21 22:07 Expected date of discharge: 10/28/21 Attending physician: Neli Christie Primary care physician: Stated None - Discharge Diagnosis(es) (1) 18 weeks gestation of Current Visit: Yes Status: Acute (2) Renal calculi Current Visit: Yes Status: Acute (3) Abdominal pain Current Visit: Yes Status: Acute (4) Hypokalemia Current Visit: Yes Status: Acute (5) Pyelonephritis Current Visit: Yes Status: Acute (6) Tachycardia Current Visit: Yes Status: Acute Hospital Course: This is a 30-year-old old 5 para 4 woman who presented at 18 weeks gestation with nausea, vomiting, abdominal pain for 48 hours. In the emergency room she was found to have a grossly positive urinalysis and was significantly tachycardic, hypokalemic and hyponatremic. She has a history of bilateral renal calculi, recurrent urinary tract infections and medullary sponge kidney. She was admitted for observation and treatment of presumptive pyelonephritis and possible kidney stones. Following admission she received Rocephin IV every 24 hours. She did have a fever of 101.3 on the first night of admission. She had significant chills. She received IV fluid resuscitation and electrolyte correction. Renal and bladder ultrasound showed bilateral medullary sponge kidney, bilateral renal calcifications and a right stone located at the UVJ on the right side, non-obstructing. She did ultimately passed 2 small stones which significantly improved her pain this morning. She had a temp of 100.5 midday on 10/27/2021. By hospital day 2 she was feeling significantly better. She had remained 24 hours afebrile. She remained mildly hyponatremic and hypokalemic however was no longer significantly tachycardic. The preliminary report of the urine culture was positive for beta hemolytic group C strep and group D enterococcus. Following the third dose of IV Rocephin she was deemed stable for discharge home for ongoing outpatient treatment of pyelonephritis. She will follow up in the office within 48-72 hours. Pertinent Studies: ultrasound, renal and bladder ultrasound Patient Condition at Discharge: Good Plan - Discharge Summary New Discharge Prescriptions: New Amoxicillin 500 mg PO TID 7 Days #21 capsule No Action Acetaminophen Tab [Tylenol] 650 mg PO Q6H PRN PRN Reason: Pain Oou-Uxxp-Ialom Acid [-U Capsule (formulary)] 1 cap PO DAILY Discharge Medication List Acetaminophen Tab [Tylenol] 650 mg PO Q6H PRN 08/16/20 [History] [id number] Acid [-U Capsule (formulary)] 1 cap PO DAILY 10/26/21 [History] Amoxicillin 500 mg PO TID 7 Days #21 capsule 10/28/21 [Rx] Follow up Appointment(s)/Referral(s): None,Stated [Primary Care Provider] - 1-2 days Neli Christie MD [STAFF PHYSICIAN] - 1-2 Days Patient Instructions/Handouts: Kidney Stones (DC), Urinary Tract Infection in (DC) Discharge Disposition: HOME SELF-CARE
== END 2021-10-28 21:30 | disposition home or self-care (01) ==
LOC: EC 16:36 → 4FBP 22:07
PROVIDERS: ADMIT Obstetrics & Gynecology; ATTEND Obstetrics & Gynecology
DX: O23.02 Infections of kidney in pregnancy, second trimester (principal); N20.2 Calculus of kidney with calculus of ureter; Q61.5 Medullary cystic kidney; O99.282 Endocrine, nutritional and metabolic diseases complicating pregnancy, second trimester; E87.1 Hypo-osmolality and hyponatremia; E87.6 Hypokalemia; O44.42 Low lying placenta NOS or without hemorrhage, second trimester; O36.8320 Maternal care for abnormalities of the fetal heart rate or rhythm, second trimester, not applicable or unspecified; O99.412 Diseases of the circulatory system complicating pregnancy, second trimester; R00.0 Tachycardia, unspecified; O99.342 Other mental disorders complicating pregnancy, second trimester; F32.A Depression, unspecified; F41.9 Anxiety disorder, unspecified; Z3A.18 18 weeks gestation of pregnancy; O34.219 Maternal care for unspecified type scar from previous cesarean delivery; O99.612 Diseases of the digestive system complicating pregnancy, second trimester; K59.00 Constipation, unspecified; Z20.822 Contact with and (suspected) exposure to COVID-19; Z88.6 Allergy status to analgesic agent; Z87.440 Personal history of urinary (tract) infections; Z87.442 Personal history of urinary calculi; Z84.89 Family history of other specified conditions; Z82.49 Family history of ischemic heart disease and other diseases of the circulatory system
CPT/HCPCS: 96376 ×3; 96361 ×2; 96365; 96367; 96375; 99285; 36415; 93005; 80053; 80048 ×2; 83605; 83690; 85025 ×3; 81001; 87086; 87077; 87186; 87635; 76705; 76805; 76770; G0378 ×3; J2765 ×2; J3480; J0696 ×3; S0197; C9113 ×3

== ENCOUNTER 2022-01-02 13:00 | Outpatient (CLI) | payer OTHER ==
[2022-01-02 14:14] LABS: Amorphous Sediment,Urine Rare /hpf; Appearance,Urine Clear (Clear); Bilirubin,Urine Negative (Negative); Blood,Urine Small (Negative); Color,Urine Yellow; Glucose,Urine (UA) Negative (Negative); Ketones,Urine Negative (Negative); Leukocyte Esterase,Urine Moderate (Negative); Mucus,Urine Rare /hpf; Nitrite,Urine Negative (Negative); Protein,Urine Trace (Negative); RBC,Urine 65 /hpf (0-5); Specific Gravity,Urine 1.011 (1.001-1.035); Squamous Epithelial Cell,Urine 3 /hpf (0-4); Urobilinogen,Urine <2.0 mg/dL (<2.0); WBC,Urine 21 /hpf (0-5)
[2022-01-02 14:15] LABS: Basophils % (A) 0 %; Eosinophils # (A) 0.1 k/uL (0-0.7); Eosinophils % (A) 1 %; HCT 30.9 % (34.0-46.0); HGB 10.3 gm/dL (11.4-16.0); Lymphocytes # (A) 1.3 k/uL (1.0-4.8); Lymphocytes % (A) 14 %; MCH 31.9 pg (25.0-35.0); MCHC 33.3 g/dL (31.0-37.0); Mean Platelet Volume 7.6; Monocytes # (A) 0.3 k/uL (0-1.0); Monocytes % (A) 3 %; Neutrophils # (A) 7.9 k/uL (1.3-7.7); Neutrophils % (A) 81 %; Platelet Count 346 k/uL (150-450); RBC 3.22 m/uL (3.80-5.40); RDW 13.6 % (11.5-15.5); WBC 9.7 k/uL (3.8-10.6)
[2022-01-02 14:23] LABS: Uric Acid 3.4 mg/dL (3.7-7.4)
[2022-01-02 15:01] LABS: Amphetamine Screen,Urine Not Detected (NotDetected); Barbiturate Screen,Urine Not Detected (NotDetected); Benzodiazepines Screen,Urine Not Detected (NotDetected); Cocaine Screen,Urine Not Detected (NotDetected); Methadone Screen, Urine Not Detected (NotDetected); Opiate Screen,Urine Not Detected (NotDetected); Oxycodone Screen, Urine Not Detected (NotDetected); Phencyclidine Screen,Urine Not Detected (NotDetected); Tricyclic Antidepressant,Urine Not Detected (NotDetected); Urn Cannabinoid Scrn Detected (NotDetected)
[2022-01-02] MEDS ORDERED: BETAMET ACET-BETAMETH SOD PHOS 6 MG/ML MDV IM SCH (15:30)
[2022-01-02 16:11] VITALS: BP 136/79; PULSE 116; RESP 22; TEMP 98.9
--- NOTE | 2022-01-11 09:00 | P.MSEPDOC ---
Presenting Problems - Arrival Data Date of Arrival on Unit: 01/02/22 Time of Arrival on Unit: 13:00 Mode of Transport: Ambulatory - Complaint OB-Reason for Admission/Chief Complaint: PIH, Syncope/Fainting Spell Comment: pt almost lost consciousness at home, blood pressures were high Medical History - Information : 5 Para: 4 Term: 4 : 0 Abortions: Spontaneous or Elective: 0 Number of Living Children: 4 - Gestational Age Gestational Age by ROZ (wks/days): 27 Weeks and 6 Days - History Complications: GBS+, Prior , Hx. Substance Abuse Comment: daily marijuana smoker Review of Systems - Review of Systems Constitutional: No problems Breast: No problems ENT: No problems Cardiovascular: No problems Respiratory: No problems Gastrointestinal: No problems Genitourinary: No problems Musculoskeletal: No problems Neurological: Fainting, Dizziness Skin: No problems Vital Signs - Temperature Temperature: 98.9 F Temperature Source: Oral - Pulse Right Brachial Pulse Rate: 116 Pulse Assessment Method: Automatic Cuff - Respirations Respiratory Rate: 22 Oxygen Delivery Method: Room Air O2 Sat by Pulse Oximetry: 97 - Blood Pressure Right Arm Sitting Blood Pressure: 136/79 Blood Pressure Mean: 98 Blood Pressure Source: Automatic Cuff Medical Screen Scoring - Assessment - Baby A Baseline FHR: 135 Heart Rate - NICHD Category: Category I (Normal) Physician Notification - Physician Notified Physician Notified Date: 01/02/22 Physician Notified Time: 15:10 Physician: Neli Christie Order Received: Yes (d/c with instruction) - Notification Comment Comment: Celestone x2, bring cuff tomorrow for calibration, call office for appt next week, orally hydrate until pulse is under 100 Maternal Triage Index - Non-Urgent/Priority 4 Non-Urgent Priority 4: Yes Criteria Met for Priority 4: dizziness, high bp at home Disposition - Disposition OB Disposition: Physician follow up in office, Triage, Discharge to home, Written follow up instructions reviewed Discharge Date: 01/02/22 Discharge Time: 16:00 I agree with the RN Medical Screening Exam: Yes Case reviewed; plan agreed upon as documented in EMR&OBIX.: Yes Comments: Patient was neither seen nor examined by me Diagnosis: RELATED CONDITIONS, UNSPECIFIED, THIRD TRIMESTER
== END 2022-01-02 16:00 | disposition home or self-care (01) ==
LOC: FBPOP 13:00
PROVIDERS: ATTEND Obstetrics & Gynecology
DX: O13.2 Gestational [pregnancy-induced] hypertension without significant proteinuria, second trimester (principal); O99.322 Drug use complicating pregnancy, second trimester; F12.90 Cannabis use, unspecified, uncomplicated; Z3A.27 27 weeks gestation of pregnancy
CPT/HCPCS: 96372; 84450; 84460; 84550; 85025; 81001; 80306; G0463; J0702; 99215

== ENCOUNTER 2022-01-03 15:35 | Outpatient (CLI) | payer OTHER ==
[2022-01-03] MEDS ORDERED: BETAMET ACET-BETAMETH SOD PHOS 6 MG/ML MDV IM SCH (15:45)
[2022-01-03 16:09] VITALS: BP 125/65
== END 2022-01-03 16:12 ==
LOC: FBPOP 15:35
PROVIDERS: ATTEND Obstetrics & Gynecology
DX: O13.2 Gestational [pregnancy-induced] hypertension without significant proteinuria, second trimester (principal); O99.332 Smoking (tobacco) complicating pregnancy, second trimester; F17.200 Nicotine dependence, unspecified, uncomplicated; Z3A.18 18 weeks gestation of pregnancy; Z88.6 Allergy status to analgesic agent
CPT/HCPCS: 96372; J0702

== ENCOUNTER 2022-02-27 11:44 | Outpatient (CLI) | payer OTHER ==
[2022-02-27] MEDS: DEXTROSE 5%-LACTATED RINGERS 1,000 ML IV SCH ×4 (12:30→16:17)
[2022-02-27 14:23] LABS: Basophils # (A) 0.1 k/uL (0-0.2); Basophils % (A) 0 %; Eosinophils # (A) 0.1 k/uL (0-0.7); Eosinophils % (A) 1 %; HCT 31.6 % (34.0-46.0); HGB 10.2 gm/dL (11.4-16.0); Lymphocytes # (A) 1.6 k/uL (1.0-4.8); Lymphocytes % (A) 11 %; MCH 30.7 pg (25.0-35.0); MCHC 32.3 g/dL (31.0-37.0); MCV 94.9 fL (80.0-100.0); Monocytes # (A) 0.6 k/uL (0-1.0); Monocytes % (A) 4 %; Neutrophils # (A) 12.4 k/uL (1.3-7.7); Neutrophils % (A) 83 %; Platelet Count 287 k/uL (150-450); RBC 3.33 m/uL (3.80-5.40); RDW 15.1 % (11.5-15.5); WBC 14.9 k/uL (3.8-10.6)
[2022-02-27 14:35] LABS: Appearance,Urine Cloudy (Clear); Bacteria,Urine Rare /hpf; Bilirubin,Urine Negative (Negative); Blood,Urine Large (Negative); Color,Urine Yellow; Glucose,Urine (UA) Negative (Negative); Ketones,Urine Negative (Negative); Leukocyte Esterase,Urine Large (Negative); Mucus,Urine Rare /hpf; Nitrite,Urine Negative (Negative); Protein,Urine 1+ (Negative); RBC,Urine >182 /hpf (0-5); Specific Gravity,Urine 1.014 (1.001-1.035); Squamous Epithelial Cell,Urine 13 /hpf (0-4); Urobilinogen,Urine <2.0 mg/dL (<2.0); WBC,Urine 47 /hpf (0-5)
[2022-02-27 14:36] LABS: African American GFR (CKD) >90 (>60 ml/min/1.73 sqM); Anion Gap 5 mmol/L; Blood Urea Nitrogen 4 mg/dL (7-17); Calcium 8.1 mg/dL (8.4-10.2); Carbon Dioxide 22 mmol/L (22-30); Chloride 107 mmol/L (98-107); Glucose 160 mg/dL (74-99); Non-African American GFR(CKD) >90 (>60 ml/min/1.73 sqM); Sodium 134 mmol/L (137-145)
--- NOTE | 2022-02-27 15:02 | US ---
EXAMINATION TYPE: US kidneys/renal and bladder DATE OF EXAM: 02/27/2022 COMPARISON: Renal ultrasound October 27, 2021 CLINICAL HISTORY: Flank pain. Patient is 37 weeks with known sponge kidneys and stones, rt f lank pain EXAM MEASUREMENTS: Right Kidney: 12.6 x 6.4 x 7.1 cm Left Kidney: 13.1 x 5.4 x 5.6 cm Right Kidney: moderate hydronephrosis seen with multiple stones seen, largest = 1.2cm mid pole Left Kidney: multiple stones seen, largest = 1.6cm inferior pole Bladder: unable to fully assess due to enlarged UT Moderate right-sided hydronephrosis more prominent from prior. Bladder suboptimally evaluated due to poor distention. Mild left-sided hydronephrosis similar to prior. Hyperechoic foci suspicious for mul tiple bilateral nonobstructing renal calculi. IMPRESSION: Persistent bilateral nephrolithiasis and hydronephrosis with increased right-sided hydron ephrosis noted since most recent ultrasound.
[2022-02-27] MEDS ORDERED: ACETAMINOPHEN IV (For NPO) 1,000 MG in EMPTY BAG 1 BAG IVPB ONE (15:17)
[2022-02-27] MEDS ORDERED: LACTATED RINGERS 1,000 ML IV SCH (16:15)
[2022-02-27] MEDS: POTASSIUM CHLORIDE 10 MEQ in WATER FOR INJECTION 1 100ML.BAG IVPB SCH ×4 (16:50→19:53)
[2022-02-27] MEDS ORDERED: KETOROLAC 15 MG/ML 1 ML VIAL IVP STA (20:03)
[2022-02-27 21:36] VITALS: BP 145/80; PULSE 89; RESP 18
--- NOTE | 2022-03-12 09:12 | P.MSEPDOC ---
Presenting Problems - Arrival Data Date of Arrival on Unit: 02/27/22 Time of Arrival on Unit: 11:45 Mode of Transport: Ambulatory - Complaint OB-Reason for Admission/Chief Complaint: Acute Nausea/Vomiting, Pain Comment: abd pain and cramping Medical History - Information : 5 Para: 4 Term: 4 : 0 Abortions: Spontaneous or Elective: 0 Number of Living Children: 4 - Gestational Age Gestational Age by ROZ (wks/days): 35 Weeks and 6 Days Review of Systems - Review of Systems Constitutional: No problems Breast: No problems ENT: No problems Cardiovascular: No problems Respiratory: No problems Gastrointestinal: Diarrhea Genitourinary: No problems Musculoskeletal: No problems Neurological: No problems Skin: No problems Vital Signs - Pulse Pulse Oximetery Pulse Rate: 89 Pulse Assessment Method: Pulse Oximetry - Respirations Respiratory Rate: 18 Oxygen Delivery Method: Room Air - Blood Pressure Right Arm Blood Pressure: 145/80 Blood Pressure Mean: 101 Blood Pressure Source: Automatic Cuff Medical Screen Scoring - Cervical Exam Dilation (cm): 0 Effacement (%): 0 Station: 0 Membranes: Intact - Assessment - Baby A Heart Rate - NICHD Category: Category I (Normal) NST: Reactive Physician Notification - Physician Notified Physician Notified Date: 02/27/22 Physician Notified Time: 21:10 Physician: Neli Christie Order Received: Yes - Notification Comment Comment: pt can go home and will f/u with her in office tomorrow at 10 am Maternal Triage Index - Maternal Triage Index Presenting for scheduled procedure w/no complaint: No - Stat/Priority 1 Stat Priority 1: No - Urgent/Priority 2 Urgent Priority 2: No - Prompt/Priority 3 Prompt Priority 3: No - Non-Urgent/Priority 4 Non-Urgent Priority 4: Yes Criteria Met for Priority 4: pt complaints of N/V and abd pain Disposition - Disposition OB Disposition: Physician follow up in office, Discharge to home Discharge Date: 02/27/22 Discharge Time: 21:18 I agree with the RN Medical Screening Exam: Yes Case reviewed; plan agreed upon as documented in EMR&OBIX.: Yes Comments: Patient was neither seen nor examined by me Diagnosis: LATE VOMITING OF
== END 2022-02-27 21:18 | disposition home or self-care (01) ==
LOC: FBPOP 11:44
PROVIDERS: ATTEND Obstetrics & Gynecology
DX: O21.2 Late vomiting of pregnancy (principal); Z3A.35 35 weeks gestation of pregnancy; Z88.6 Allergy status to analgesic agent
CPT/HCPCS: 59025; 96361; 96365; 96366; 96367; 96375; 80048; 85025; 81001; 87086; 87077; 87186; 76770; G0463; J0690; J3480; J0131; J1885; 99214

== ENCOUNTER 2022-03-08 05:59 | Inpatient (IN) | payer OTHER ==
[2022-03-08] MEDS ORDERED: CITRIC ACID-SODIUM CITRATE 15 ML CUP PO ONE (06:16)
[2022-03-08] MEDS ORDERED: LACTATED RINGERS 1,000 ML IV ONE (06:16)
[2022-03-08 06:50] LABS: Amphetamine Screen,Urine Not Detected (NotDetected); Barbiturate Screen,Urine Not Detected (NotDetected); Benzodiazepines Screen,Urine Not Detected (NotDetected); Cocaine Screen,Urine Not Detected (NotDetected); Methadone Screen, Urine Not Detected (NotDetected); Opiate Screen,Urine Not Detected (NotDetected); Oxycodone Screen, Urine Not Detected (NotDetected); Phencyclidine Screen,Urine Not Detected (NotDetected); Tricyclic Antidepressant,Urine Not Detected (NotDetected); Urn Cannabinoid Scrn Detected (NotDetected)
[2022-03-08 06:50] LABS: Basophils # (A) 0.1 k/uL (0-0.2); Basophils % (A) 1 %; Eosinophils # (A) 0.2 k/uL (0-0.7); Eosinophils % (A) 2 %; HCT 33.9 % (34.0-46.0); Lymphocytes # (A) 1.9 k/uL (1.0-4.8); Lymphocytes % (A) 18 %; MCH 31.1 pg (25.0-35.0); MCHC 32.5 g/dL (31.0-37.0); MCV 95.5 fL (80.0-100.0); Mean Platelet Volume 8.3; Monocytes # (A) 0.6 k/uL (0-1.0); Monocytes % (A) 5 %; Neutrophils % (A) 73 %; Platelet Count 368 k/uL (150-450); RBC 3.55 m/uL (3.80-5.40); RDW 15.1 % (11.5-15.5)
[2022-03-08] MEDS: LACTATED RINGERS 1,000 ML IV SCH ×4 (07:25→22:01)
[2022-03-08] MEDS ORDERED: KETOROLAC 15 MG/ML 1 ML VIAL ONE (07:56)
[2022-03-08] MEDS ORDERED: OXYTOCIN 10 UNIT/ML 1 ML VIAL ONE (07:56)
[2022-03-08] MEDS ORDERED: DEXAMETHASONE SOD PHOSPHATE 10 MG/ML 1 ML VIAL ONE (07:56)
[2022-03-08] MEDS ORDERED: ONDANSETRON 4 MG/2 ML VIAL ONE (07:56)
[2022-03-08] MEDS ORDERED: MORPHINE SULFATE (PF) 0.3 MG/0.3 ML SYR ONE (07:56)
[2022-03-08] MEDS ORDERED: NALBUPHINE 10 MG/ML (1 ML AMP) ONE (07:56)
[2022-03-08] MEDS ORDERED: fentaNYL (PF) 50 MCG/ML 2 ML AMP ONE (07:56)
--- NOTE | 2022-03-08 08:01 | P.HPOB ---
History of Present Illness H&P Date: 03/08/22 Chief Complaint: Here for repeat section and tubal ligation This is a 31-year-old 5 para 4004 EDC 03/28/2022 at 37-2/7 weeks' gestation who presents today for repeat low transverse section and tubal ligation. has been complicated by bilateral hydronephrosis, sponge kidneys, and multiple stones in bilateral ureters with subsequent severe pain. Decision is made to deliver at 37 weeks to decompress the ureters, kidneys, and alleviate bilateral flank pain secondary to renal lithiasis. She denies vaginal bleeding or fluid leakage. Fetus is been active throughout the . Patient also has a history of chronic proteinuria. history is significant for blood type O positive, rubella status immune. VDRL testing, hepatitis B surface antigen, HIV testing, gonorrhea and chlamydia cultures all negative. Urine drug screens repetitively positive for marijuana. Group B strep culture positive in the urine. Multiple urinary tract infections throughout the . Past medical history is significant for frequent UTIs, bilateral kidney stones, sponge kidney, anxiety and depression. Past surgical history significant for stents placed previously in the ureters, sections 4. Current medications vitamins daily, Keflex orally for UTI. ALLERGIES none known. Family history significant for pancreatic cancer. Social history patient is single, father of the baby Tristian is involved. She denies tobacco use, but admits to frequent marijuana use. On exam patient is 5 foot 2 inches, 180 pounds, blood pressure 128/89. General physical exam is within normal limits. Cervix is long thick and closed. heart tones consistent with reactive NST. Abdomen is soft and nontender, infant is vertex to Wesley's maneuvers. Impression: 37-2/7 weeks intrauterine , recurrent severe flank pain requiring narcotics, bilateral renal lithiasis with subsequent hydroureter, sponge kidney history. Previous sections 4. Undesired fertility. Frequent marijuana use throughout the . History of anxiety and depression. Plan: We will proceed with repeat low transverse section and bilateral tubal ligation. All risks benefits and alternatives have been discussed. Pe diatrician aware of drug history. Requesting circumcision. All questions answered. Review of Systems Constitutional: Reports as per HPI Past Medical History Past Medical History: No Reported History Additional Past Medical History / Comment(s): kidney stones and UTI's, kindey stents in 2020 History of Any Multi-Drug Resistant Organisms: None Reported Past Surgical History: Section Additional Past Surgical History / Comment(s): C/S x 4 Past Anesthesia/Blood Transfusion Reactions: Previous Problems w/ Anesthesia, Motion Sickness, Postoperative Nausea & Vomiting (PONV) Additional Past Anesthesia/Blood Transfusion Reaction / Comment(s): (drop in blood pressure, nausea,vommiting, loss of consciousness-pt not aware of these reactions other than nausea), motion sickness as child Past Psychological History: Anxiety, Depression Additional Psychological History / Comment(s): no current tx Smoking Status: Former smoker Past Alcohol Use History: None Reported Past Drug Use History: Marijuana Additional Drug Use History / Comment(s): "couple joints a day" - Past Family History Father Family Medical History: Coronary Artery Disease (CAD) Additional Family Medical History / Comment(s): dad at 38 from [place] Mother Family Medical History: No Reported History Additional Family Medical History / Comment(s): post hem Medications and Allergies Home Medications Medication Instructions Recorded Confirmed Type Dzx-Miwd-Osqlm Acid 1 cap PO DAILY 10/26/21 03/08/22 History [-U Capsule (formulary)] Aspirin 81 mg PO DAILY 01/02/22 03/08/22 History Ferrous Sulfate [Iron (65 MG 1 tab PO DAILY 03/08/22 03/08/22 History Elemental)] traMADol HCL 1 tab PO DAILY PRN 03/08/22 03/08/22 History Allergies Allergy/AdvReac Type Severity Reaction Status Date / Time ibuprofen Allergy fatigue,vom Verified 02/27/22 12:01 iting,fever Exam Vital Signs Temp Pulse Resp BP Pulse Ox 03/08/22 06:12 97.1 F L 105 H 16 128/89 98 Intake and Output 03/07/22 03/08/22 03/08/22 22:59 06:59 14:59 Other: Weight 81.647 kg See dictation under HPI please Results Result Diagrams: 03/08/22 06:24 Abnormal Lab Results - Last 24 Hours (Table) 03/08/22 03/08/22 Range/Units 06:00 06:24 WBC 11.0 H (3.8-10.6) k/uL RBC 3.55 L (3.80-5.40) m/uL Hgb 11.0 L (11.4-16.0) gm/dL Hct 33.9 L (34.0-46.0) % Neutrophils # 8.0 H (1.3-7.7) k/uL U Marijuana (THC) Screen Detected H (NotDetected) Assessment and Plan Assessment: 37-2/7 weeks intrauterine , recurrent UTIs, bilateral sponge kidneys, multiple ureteral stones with subsequent hydronephrosis and recurrent flank pain. Undesired fertility. 4 previous sections. Positive group B strep. Plan: For repeat low transverse section and bilateral tubal ligation. All risks benefits and alternatives discussed. Anesthesia aware. Antibiotics given. Time with Patient: Less than 30
[2022-03-08] MEDS ORDERED: diphenhydrAMINE 50 MG CAP PO PRN (08:58)
[2022-03-08] MEDS ORDERED: ZOLPIDEM 5 MG TAB PO PRN (08:58)
[2022-03-08] MEDS ORDERED: SIMETHICONE 80 MG CHEWABLE PO PRN (08:58)
[2022-03-08] MEDS ORDERED: NALOXONE 0.4 MG/ML 1 ML VIAL IV PRN (08:58)
[2022-03-08] MEDS ORDERED: diphenhydrAMINE 25 MG CAP PO PRN (08:58)
[2022-03-08] MEDS ORDERED: diphenhydrAMINE 50 MG/ML 1 ML VIAL IVP PRN (08:58)
[2022-03-08] MEDS ORDERED: ONDANSETRON 4 MG/2 ML VIAL IVP PRN (08:58)
[2022-03-08] MEDS ORDERED: METOCLOPRAMIDE 5 MG/ML 2 ML VIAL IVP PRN (08:58)
--- NOTE | 2022-03-08 08:58 | P.OP ---
Date of Procedure: 03/08/22 Preoperative Diagnosis: 37-2/7 weeks, extensive bilateral maternal renal lithiasis, bilateral hydroureters, bilateral hydronephrosis, bilateral sponge kidney, proteinuria. Undesired fertility. Postoperative Diagnosis: Same, liveborn male infant, normal-appearing tubes and ovaries Procedure(s) Performed: Repeat low transverse section, tubal ligation with Filshie clips Anesthesia: spinal Surgeon: Neli Christie Clipper And Turner #1: Kathleen Thomas Estimated Blood Loss (ml): 565 IV fluids (ml): 800 Urine output (ml): 199 Pathology: other (Placenta) Condition: stable Disposition: PACU Description of Procedure: Patient is brought to the operating suite where a spinal analgesia with Duramorph is provided. Antibiotics are given. Merchant catheter to direct drainage. The appropriate timeout is performed to assure proper patient and procedural identification. The abdomen is prepped and draped in usual sterile fashion. Bicitra is given. Analgesia is checked and noted to be adequate. A repeat low transverse skin incision is made in this is carried down through the subcutaneous tissue which is approximately 3 cm deep. Fascia is isolated, scored, extended bilaterally with curved Woodard scissors. Peritoneum is next identified and incised, there is no bowel or bladder involvement. The bladder flap is created with Metzenbaum scissors secondary to scar tissue, the bladder is Well from the operative field to avoid bladder and/or ureteral injury. A repeat low transverse uterine incision is made in this is carried down through the myometrium. Artificial amniorrhexis reveals clear fluid. The uterine incision is extended with blunt dissection. 's head is delivered in the occiput anterior position. There is no nuchal cord noted. The patient is officially delivered of a liveborn male at 0822 hours. Umbilical cord is doubly clamped and ligated, he is handed to waiting nurses for evaluation where scores of 8 and 8 at one and 5 minutes respectively are given. Cord blood is sent to the lab. Placenta is delivered manually, it is inspected and noted to be intact with trivascular cord. It is also sent to pathology for further evaluation secondary to chronic maternal drug use. The uterus is then externalized and massaged. It is swept clean with a sterile sponge to avoid any retained products of conception. Uterus is closed in a single full-thickness stitch of 0 Vicryl, running locking with excellent reapproximation and hemostasis. Bilateral gutters are inspected and cleaned. Filshie clips are used and the isthmic portion of both tubes with care to trave rse the entire tubes into the mesal salpinx. Ovaries appear normal. Abdomen is suctioned with suction on guard posterior to the uterus and the uterus is gently placed back into the abdominal cavity. Peritoneum was allowed to close by secondary intention. Fascia is closed in a running stitch of 0 Vicryl with over ligation in the midline. Please note that the surgical "snow" is placed on the uterine incision to aid in hemostasis secondary to the fifth operation. Subcutaneous tissue is clean and dry, it is reapproximated with 3-0 Vicryl in a running stitch. 4-0 undyed Monocryl is used for final skin closure. Steri-Strips and Mastisol are applied to the wound. Uterus is massaged, a small amount of vaginal bleeding is procured. Urine is clear in the Merchant tube. All sponge needle and enhancement counts are correct. 's weight is 6 lbs. 6 oz. or 2880 g. She is requesting circumcision for her infant son.
[2022-03-08] MEDS: diphenhydrAMINE 50 MG/ML 1 ML VIAL IVP PRN ×2 (09:37→23:35)
[2022-03-08] MEDS: ACETAMINOPHEN TAB 500 MG TAB PO SCH ×2 (12:02→22:01)
[2022-03-08] MEDS: IBUPROFEN 600 MG TAB PO SCH ×3 (19:01→23:29)
[2022-03-08] MEDS: SENNOSIDES-DOCUSATE SODIUM 1 EACH TAB PO SCH (22:01)
[2022-03-09] MEDS: ACETAMINOPHEN TAB 500 MG TAB PO SCH ×3 (02:29→12:58)
[2022-03-09] MEDS: IBUPROFEN 600 MG TAB PO SCH ×3 (05:38→19:32)
[2022-03-09 08:08] LABS: Basophils % (A) 0 %; Eosinophils # (A) 0.1 k/uL (0-0.7); Eosinophils % (A) 1 %; HCT 30.5 % (34.0-46.0); HGB 10.2 gm/dL (11.4-16.0); Lymphocytes # (A) 1.7 k/uL (1.0-4.8); Lymphocytes % (A) 12 %; MCH 31.7 pg (25.0-35.0); MCHC 33.3 g/dL (31.0-37.0); MCV 95.2 fL (80.0-100.0); Mean Platelet Volume 8.5; Monocytes # (A) 0.6 k/uL (0-1.0); Monocytes % (A) 4 %; Neutrophils # (A) 11.6 k/uL (1.3-7.7); Neutrophils % (A) 82 %; Platelet Count 350 k/uL (150-450); RBC 3.21 m/uL (3.80-5.40); RDW 15.7 % (11.5-15.5); WBC 14.2 k/uL (3.8-10.6)
--- NOTE | 2022-03-09 08:43 | P.PN ---
Progress Note - Text Progress Note Date: 03/09/22 Postoperative day 1 status post section under spinal anesthesia, and i ntrathecal morphine given for postoperative analgesia, patient doing well, there is no anesthesia related complications, Patient had no headache, vital signs stable , Assessment and plan= postop day 1 status post , doing well there is no anesthesia related complication.
--- NOTE | 2022-03-09 09:51 | P.PNOBGPC ---
Subjective - Subjective Principal diagnosis: Postop day 1, repeat with tubal ligation Interval history: Patient is doing well postoperatively, she is ambulating and voiding without difficulty. 6 her pain is well-controlled. She denies nausea or vomiting. She states her lochia is minimal. Infant is in the nursery currently for breathing issues post delivery, currently on high flow oxygen and are currently weaning off. Patient reports: Reports appetite normal, Reports voiding normally, Reports pain well controlled, Reports ambulating normally Mckenney: doing well (in the nursery on high flow oxygen, currently weaning off ) Objective - Vital Signs Latest vital signs: Vital Signs Temp Pulse Resp BP Pulse Ox 03/09/22 08:00 98.1 F 89 16 101/66 03/09/22 04:30 98.1 F 84 18 113/72 97 03/09/22 00:09 97.9 F 92 18 127/74 99 03/08/22 21:04 97.8 F 97 19 124/78 97 03/08/22 16:00 98.0 F 101 H 14 126/74 03/08/22 12:00 98.6 F 97 17 124/82 98 03/08/22 10:55 94 17 118/61 03/08/22 10:25 89 17 135/74 03/08/22 09:55 93 16 128/68 Intake and Output 03/08/22 03/09/22 03/09/22 22:59 06:59 14:59 Output Total 900 Balance -900 Output: Urine 900 Uretheral (Merchant) 300 Other: # Voids 1 1 - Exam Extremities: Present: normal, edema Abdomen: Present: normal appearance, soft Incision: Present: normal, dry, intact Uterus: Present: normal, firm - Labs Labs: Abnormal Lab Results - Last 24 Hours (Table) 03/09/22 Range/Units 07:20 WBC 14.2 H (3.8-10.6) k/uL RBC 3.21 L (3.80-5.40) m/uL Hgb 10.2 L (11.4-16.0) gm/dL Hct 30.5 L (34.0-46.0) % RDW 15.7 H (11.5-15.5) % Neutrophils # 11.6 H (1.3-7.7) k/uL Assessment and Plan (1) 37 weeks gestation of Current Visit: Yes Status: Acute Code(s): Z3A.37 - 37 WEEKS GESTATION OF SNOMED Code(s): 34079641 (2) Family planning Current Visit: Yes Status: Acute Code(s): Z30.09 - ENCOUNTER FOR OTH GENERAL CNSL AND ADVICE ON CONTRACEPTION SNOMED Code(s): 809219398 (3) Renal calculi Current Visit: No Status: Acute Code(s): N20.0 - CALCULUS OF KIDNEY SNOMED Code(s): 05576164 (4) Status post repeat low transverse section Current Visit: No Status: Acute Code(s): Z98.89 - OTHER SPECIFIED P OSTPROCEDURAL STATES * DO NOT USE * SNOMED Code(s): 231394866 Plan: Patient is doing well postoperatively. We'll plan to continue routine pos toperative care. We'll continue to monitor infant status in terms of maternal discharge. Patient is counseled on postoperative care. Questions are answered. She states understanding.
[2022-03-09] MEDS: SENNOSIDES-DOCUSATE SODIUM 1 EACH TAB PO SCH ×2 (12:56→19:32)
[2022-03-10] MEDS: ACETAMINOPHEN TAB 500 MG TAB PO SCH ×3 (00:11→07:49)
[2022-03-10] MEDS: IBUPROFEN 600 MG TAB PO SCH ×2 (01:46→07:49)
[2022-03-10] MEDS: SENNOSIDES-DOCUSATE SODIUM 1 EACH TAB PO SCH (07:49)
[2022-03-10 08:53] VITALS: BP 116/74; PULSE 58; RESP 14; TEMP 98.4
[2022-03-10] MEDS ORDERED: ONDANSETRON 4 MG TAB PO PRN (10:12)
--- NOTE | 2022-03-10 11:05 | P.DS ---
Providers Date of admission: 03/08/22 05:59 Expected date of discharge: 03/10/22 Attending physician: Neli Christie Primary care physician: Stated None - Discharge Diagnosis(es) (1) 37 weeks gestation of Current Visit: Yes Status: Acute (2) Family planning Current Visit: Yes Status: Acute (3) Renal calculi Current Visit: No Status: Acute (4) Status post repeat low transverse section Current Visit: No Status: Acute Hospital Course: 31-year-old 5 para 4004 with an estimated due date of 03/28 presented to labor and delivery at 37-2/7 weeks for scheduled repeat section with tubal ligation. Patient's has been uncomplicated by bilateral hydronephrosis, sponge kidneys, multiple stones in bilateral ureters with subsequent severe pain. Patient and Dr. Christie made the decision to deliver at 37 weeks to decompress the ureters kidneys and alleviate bilateral flank pain secondary to renal lithiasis. For full details on this patient please see the full dictated history and physical. Patient was taken to the operating suite for scheduled repeat section with tubal ligation. was performed without difficulty for full details on the please see the operative report. Patient delivered a viable male weight of 6 lbs. 6 oz. Patient's postoperative course has been somewhat uncomplicated by nausea and vomiting. Patient in addition has struggled with pain control. Patient has been taken ibuprofen Tylenol and oxycodone 5 milligrams. She is feeling somewhat nauseated this morning but would like discharge home. Discussed with patient will start by mouth Zofran, and change medications to Tylenol 3. Patient is willing to change pain medications and see if her nausea improves. If nausea and vomiting improved she does wish discharge home. Patient Condition at Discharge: Good Plan - Discharge Summary New Discharge Prescriptions: No Action Aspirin 81 mg PO DAILY Ferrous Sulfate [Iron (65 MG Elemental)] 1 tab PO DAILY Wbh-Jsla-Gujcn Acid [-U Capsule (formulary)] 1 cap PO DAILY traMADol HCL 1 tab PO DAILY PRN PRN Reason: Pain Discharge Medication List Gqk-Ukfz-Issxr Acid [-U Capsule (formulary)] 1 cap PO DAILY 10/26/21 [History] Aspirin 81 mg PO DAILY 01/02/22 [History] Ferrous Sulfate [Iron (65 MG Elemental)] 1 tab PO DAILY 03/08/22 [History] traMADol HCL 1 tab PO DAILY PRN 03/08/22 [History] Follow up Appointment(s)/Referral(s): Neli Christie MD [STAFF PHYSICIAN] - 2 Weeks Patient Instructions/Handouts: (DC), (GEN) Discharge Disposition: HOME SELF-CARE
== END 2022-03-10 13:38 | disposition home or self-care (01) | DRG 784 ==
LOC: 4FBP 05:59
PROVIDERS: ADMIT Obstetrics & Gynecology; ATTEND Obstetrics & Gynecology
PROC: 4A0HXCZ Measurement of Products of Conception, Cardiac Rate, External Approach (ICD-10-PCS; principal; 2022-03-08 08:00)
PROC: 0UL70CZ Occlusion of Bilateral Fallopian Tubes with Extraluminal Device, Open Approach (ICD-10-PCS; principal; 2022-03-08 08:00)
PROC: 10D00Z1 Extraction of Products of Conception, Low, Open Approach (ICD-10-PCS; principal; 2022-03-08 08:00)
PROC: 10907ZC Drainage of Amniotic Fluid, Therapeutic from Products of Conception, Via Natural or Artificial Opening (ICD-10-PCS; principal; 2022-03-08 08:00)
DX: O34.211 Maternal care for low transverse scar from previous cesarean delivery (principal); O26.833 Pregnancy related renal disease, third trimester; O23.43 Unspecified infection of urinary tract in pregnancy, third trimester; N13.6 Pyonephrosis; Q61.5 Medullary cystic kidney; O99.324 Drug use complicating childbirth; F32.A Depression, unspecified; F41.9 Anxiety disorder, unspecified; O99.344 Other mental disorders complicating childbirth; Z30.2 Encounter for sterilization; Z37.0 Single live birth; F12.90 Cannabis use, unspecified, uncomplicated; Z3A.37 37 weeks gestation of pregnancy; Z79.82 Long term (current) use of aspirin; Z80.0 Family history of malignant neoplasm of digestive organs; Z82.49 Family history of ischemic heart disease and other diseases of the circulatory system; Z87.440 Personal history of urinary (tract) infections; Z87.442 Personal history of urinary calculi; Z87.891 Personal history of nicotine dependence; Z88.6 Allergy status to analgesic agent
CPT/HCPCS: 80306; 85025; 86850; 86900; 86901; 88307

== ENCOUNTER 2022-04-06 16:07 | Emergency (ER) | payer OTHER ==
[2022-04-06 16:24] VITALS: TEMP 97.5
[2022-04-06 16:50] LABS: Appearance,Urine Clear (Clear); Bilirubin,Urine Negative (Negative); Blood,Urine Large (Negative); Color,Urine Yellow; Glucose,Urine (UA) Negative (Negative); Hyaline Casts,Urine 1 /lpf (0-2); Ketones,Urine Negative (Negative); Leukocyte Esterase,Urine Large (Negative); Mucus,Urine Rare /hpf; Nitrite,Urine Negative (Negative); PH, Urine 6.5 (5.0-8.0); Protein,Urine Negative (Negative); RBC,Urine 60 /hpf (0-5); Specific Gravity,Urine 1.008 (1.001-1.035); Squamous Epithelial Cell,Urine 2 /hpf (0-4); Urobilinogen,Urine <2.0 mg/dL (<2.0); WBC,Urine 39 /hpf (0-5)
--- NOTE | 2022-04-06 18:11 | ED ---
General Adult HPI - General Chief complaint: Abdominal Pain Stated complaint: R sided abd pain, Female UG Time Seen by Provider: 04/06/22 17:43 Source: patient, RN notes reviewed, old records reviewed Mode of arrival: ambulatory Limitations: no limitations - History of Present Illness Initial comments: 31-year-old female history of sponge kidney and recurrent both urinary tract infections as well as kidney stone presenting with right flank pain and he maturia and dysuria. No fever. No vomiting. Patient is 4 weeks , she had a with tubal ligation. She states she is recovering well from this . She was started on Macrobid yesterday for urinary symptoms. She's taken several doses and does not feels that she is improving. She does report flank pain which is relieved with Tylenol. - Related Data Home Medications Medication Instructions Recorded Confirmed Kal-Gtfn-Nufla Acid 1 cap PO DAILY 10/26/21 03/08/22 [-U Capsule (formulary)] Aspirin 81 mg PO DAILY 01/02/22 03/08/22 Ferrous Sulfate [Iron (65 MG 1 tab PO DAILY 03/08/22 03/08/22 Elemental)] traMADol HCL 1 tab PO DAILY PRN 03/08/22 03/08/22 Previous Rx's Medication Instructions Recorded Cephalexin [Keflex] 500 mg PO TID 10 Days #30 cap 04/06/22 Allergies Allergy/AdvReac Type Severity Reaction Status Date / Time ibuprofen Allergy fatigue,vom Verified 04/06/22 16:24 iting,fever Review of Systems ROS Statement: Those systems with pertinent positive or pertinent negative responses have been documented in the HPI. ROS Other: All systems not noted in ROS Statement are negative. Past Medical History Past Medical History: No Reported History Additional Past Medical History / Comment(s): kidney stones and UTI's, kindey stents in 2020 History of Any Multi-Drug Resistant Organisms: None Reported Past Surgical History: Section Additional Past Surgical History / Comment(s): C/S x 4 Past Anesthesia/Blood Transfusion Reactions: Previous Problems w/ Anesthesia, Motion Sickness, Postoperative Nausea & Vomiting (PONV) Additional Past Anesthesia/Blood Transfusion Reaction / Comment(s): (drop in blood pressure, nausea,vommiting, loss of consciousness-pt not aware of these reactions other than nausea), motion sickness as child Past Psychological History: Anxiety, Depression Smoking Status: Former smoker Past Alcohol Use History: None Reported Past Drug Use History: Marijuana - Past Family History Father Family Medical History: Coronary Artery Disease (CAD) Additional Family Medical History / Comment(s): dad at 38 from [place] Mother Family Medical History: No Reported History Additional Family Medical History / Comment(s): post hem General Exam Limitations: no limitations General appearance: alert, in no apparent distress Head exam: Present: atraumatic, normocephalic Eye exam: Present: normal appearance, PERRL ENT exam: Present: normal exam Neck exam: Present: normal inspection Respiratory exam: Present: normal lung sounds bilaterally. Absent: respiratory distress, wheezes Cardiovascular Exam: Present: regular rate. Absent: normal rhythm GI/Abdominal exam: Present: soft. Absent: distended, tenderness, guarding Back exam: Absent: CVA tenderness (R), CVA tenderness (L) Neurological exam: Present: alert, oriented X3, CN II-XII intact. Absent: motor sensory deficit Psychiatric exam: Present: normal affect, normal mood Skin exam: Present: warm, dry, intact. Absent: cyanosis, diaphoretic Course Vital Signs 04/06/22 16:20 Temperature 97.5 F L Pulse Rate 79 Respiratory 18 Rate Blood Pressure 150/88 O2 Sat by Pulse 100 Oximetry Medical Decision Making - Medical Decision Making 31-year-old female with right flank pain, radiating to the groin. Patient has history of recurrent kidney stones, and medullary sponge kidney. She had previously been and delivered about 4 weeks ago. She's had no fever. No vomiting. I did discuss imaging with this patient and ultimately we decided that we would do computed tomography scan in the emergency department. This was performed showing 2 distal stones in the right ureter with hydronephrosis and hydroureter. Her chest normal CBC, normal CMP. She has a urinalysis which shows both red and white cells. Culture will be performed. I will start this patient on antibiotics to cover for the possibility of concurrent infection. I did discuss case with Dr. Ahumada who will be available for close outpatient follow-up. - Lab Data Result diagrams: 04/06/22 18:17 04/06/22 18:17 Lab Results 04/06/22 04/06/22 04/06/22 Range/Units 16:21 18:17 18:17 WBC 9.1 (3.8-10.6) k/uL RBC 4.24 (3.80-5.40) m/uL Hgb 12.6 (11.4-16.0) gm/dL Hct 39.7 (34.0-46.0) % MCV 93.7 (80.0-100.0) fL MCH 29.8 (25.0-35.0) pg MCHC 31.8 (31.0-37.0) g/dL RDW 14.3 (11.5-15.5) % Plt Count 337 (150-450) k/uL MPV 7.6 Neutrophils % 73 % Lymphocytes % 19 % Monocytes % 4 % Eosinophils % 2 % Basophils % 1 % Neutrophils # 6.7 (1.3-7.7) k/uL Lymphocytes # 1.7 (1.0-4.8) k/uL Monocytes # 0.3 (0-1.0) k/uL Eosinophils # 0.2 (0-0.7) k/uL Basophils # 0.1 (0-0.2) k/uL Sodium 137 (137-145) mmol/L Potassium 4.0 (3.5-5.1) mmol/L Chloride 106 (98-107) mmol/L Carbon Dioxide 25 (22-30) mmol/L Anion Gap 6 mmol/L BUN 12 (7-17) mg/dL Creatinine 1.04 (0.52-1.04) mg/dL Est GFR (CKD-EPI)AfAm 84 (>60 ml/min/1.73 sqM) Est GFR (CKD-EPI)NonAf 73 (>60 ml/min/1.73 sqM) Glucose 88 (74-99) mg/dL Calcium 8.9 (8.4-10.2) mg/dL Total Bilirubin 0.2 (0.2-1.3) mg/dL AST 28 (14-36) U/L ALT 23 (4-34) U/L Alkaline Phosphatase 99 (38-126) U/L Total Protein 6.9 (6.3-8.2) g/dL Albumin 4.1 (3.5-5.0) g/dL Urine Color Yellow Urine Appearance Clear (Clear) Urine pH 6.5 (5.0-8.0) Ur Specific [place] 1.008 (1.001-1.035) Urine Protein Negative (Negative) Urine Glucose (UA) Negative (Negative) Urine Ketones Negative (Negative) Urine Blood Large H (Negative) Urine Nitrite Negative (Negative) Urine Bilirubin Negative (Negative) Urine Urobilinogen <2.0 (<2.0) mg/dL Ur Leukocyte Esterase Large H (Negative) Urine RBC 60 H (0-5) /hpf Urine WBC 39 H (0-5) /hpf Ur Squamous Epith Cells 2 (0-4) /hpf Hyaline Casts 1 (0-2) /lpf Urine Mucus Rare H (None) /hpf Disposition Clinical Impression: Renal calculi, Ureteral stone Disposition: HOME SELF-CARE Condition: Fair Instructions (If sedation given, give patient instructions): Kidney Stones (ED) Prescriptions: Cephalexin [Keflex] 500 mg PO TID 10 Days #30 cap Is patient prescribed a controlled substance at d/c from ED?: No Referrals: None,Stated [Primary Care Provider] - 1-2 days Akbar Doan MD [STAFF PHYSICIAN] - 1-2 days Time of Disposition: 19:10
--- NOTE | 2022-04-06 18:37 | CT ---
EXAMINATION TYPE: CT abdomen pelvis wo con CT DLP: 604.2 mGycm, Automated exposure control for dose reduction was used. DATE OF EXAM: 04/06/2022 6:07 PM COMPARISON: CT abdomen pelvis most recent from 07/08/2020. CLINICAL INDICATION:Female, 31 years old with history of flank pain/hematuria; flank pain/hematuria TECHNIQUE: Renal stone protocol CT of the abdomen and pelvis without IV or oral contrast. Lack of IV or oral contrast limits evaluation of solid and hollow organ viscera. Coronal and sagittal reformats were performed. FINDINGS: LOWER CHEST: Unremarkable ABDOMEN LIVER: Unremarkable noncontrast appearance. GALLBLADDER AND BILE DUCTS: Unremarkable noncontrast appearance. PANCREAS: Unremarkable noncontrast appearance. SPLEEN: Unremarkable noncontrast appearance. ADRENAL GLANDS: Unremarkable noncontrast appearance. KIDNEYS AND URETERS: Mild to moderate right hydroureteronephrosis with an obstructing 9 x 7 mm calcul us ureterovesical junction and another stone within the right distal ureter measuring 8 x 7 mm. No hy dronephrosis of the left kidney. Additional bilateral nonobstructing renal calculi identified and gonzales ateral medullary nephrocalcinosis. PELVIS BLADDER: Unremarkable REPRODUCTIVE: Bilateral tubal ligation clips. ABDOMEN & PELVIS STOMACH AND BOWEL: Stomach and duodenum are unremarkable. No focal wall thickening or surrounding inf lammatory changes. No evidence of bowel obstruction. PERITONEUM: No evidence of pneumoperitoneum or free fluid. VASCULATURE: No evidence of aortic aneurysm. MUSCULOSKELETAL: No acute osseous abnormalities LYMPH NODES: No gross evidence for lymphadenopathy. SOFT TISSUE/ABDOMINAL WALL: Unremarkable IMPRESSION: 1. Cbpr-hw-pnutercn right hydroureteronephrosis with an obstructing calculus at the right ureteroves ical junction measuring 9 x 7 mm. Additional calculus demonstrated within the right distal ureter golden suring 8 x 7 mm. 2. Nonobstructive bilateral renal calculi. 3. Bilateral medullary nephrocalcinosis.
[2022-04-06 18:51] LABS: Basophils # (A) 0.1 k/uL (0-0.2); Basophils % (A) 1 %; Eosinophils # (A) 0.2 k/uL (0-0.7); Eosinophils % (A) 2 %; HCT 39.7 % (34.0-46.0); HGB 12.6 gm/dL (11.4-16.0); Lymphocytes # (A) 1.7 k/uL (1.0-4.8); Lymphocytes % (A) 19 %; MCH 29.8 pg (25.0-35.0); MCHC 31.8 g/dL (31.0-37.0); MCV 93.7 fL (80.0-100.0); Mean Platelet Volume 7.6; Monocytes # (A) 0.3 k/uL (0-1.0); Monocytes % (A) 4 %; Neutrophils # (A) 6.7 k/uL (1.3-7.7); Neutrophils % (A) 73 %; Platelet Count 337 k/uL (150-450); RBC 4.24 m/uL (3.80-5.40); RDW 14.3 % (11.5-15.5); WBC 9.1 k/uL (3.8-10.6)
[2022-04-06 19:00] LABS: Albumin 4.1 g/dL (3.5-5.0); Calcium 8.9 mg/dL (8.4-10.2); Total Bilirubin 0.2 mg/dL (0.2-1.3); Total Protein 6.9 g/dL (6.3-8.2)
[2022-04-06] MEDS ORDERED: cefTRIAXone IN SWFI 1,000 MG/10 ML SYRINGE IVP STA (19:11)
[2022-04-06] MEDS ORDERED: HYDROcodone/APAP 7.5-325MG 1 EACH TAB PO ONE (19:17)
[2022-04-06 19:35] VITALS: BP 137/112; PULSE 70; RESP 16
== END 2022-04-06 19:34 | disposition home or self-care (01) ==
LOC: EC 16:07
DX: N13.2 Hydronephrosis with renal and ureteral calculous obstruction (principal); Z87.891 Personal history of nicotine dependence; Z88.6 Allergy status to analgesic agent; Z79.82 Long term (current) use of aspirin
CPT/HCPCS: 36415; 80053; 85025; 81001; 87086; 87077; 87186; 74176; 99284; 96374; J0696

== ENCOUNTER → 2024-05-12 | Outpatient (CLI) | payer OTHER ==
--- NOTE | 2024-05-12 11:11 | XR ---
EXAMINATION TYPE: XR KUB DATE OF EXAM: 05/12/2024 Comparison: 09/25/2020 Clinical History: 33-year-old female N20.0 CALCULUS OF KIDNEY Findings: Unobstructed bowel gas pattern. Scattered mild to moderate stool. Extensive bilateral nephrolithiasis , possible medullary nephrocalcinosis. Calcifications measure up to 2.1 cm. Bilateral tubal ligation clips. Nonobstructive bowel gas pattern. Lung bases are clear. Impression: Extensive bilateral nephrolithiasis, possible medullary nephrocalcinosis with some differential consi derations including medullary sponge kidney, RTA type II, hyperparathyroidism. Clinically correlate. Nonobstructive bowel gas pattern.
== END | disposition home or self-care (01) ==
LOC: RADXRMAIN 09:05
PROVIDERS: ATTEND Urology
DX: N20.0 Calculus of kidney (principal)
CPT/HCPCS: 74018

== ENCOUNTER 2024-05-15 11:08 | Emergency (ER) | payer OTHER ==
[2024-05-15 11:21] VITALS: RESP 18; TEMP 97.8
--- NOTE | 2024-05-15 11:57 | ED ---
Female Urogenital HPI - General Chief complaint: Urogenital Stated complaint: kidney stone Time Seen by Provider: 05/15/24 11:52 Source: patient, RN notes reviewed Mode of arrival: ambulatory Limitations: no limitations - History of Present Illness Initial comments: 33-year-old female with history of kidney stones presenting with left flank pain x 1 day with associated dysuria, urinary urgency, nausea, and vomiting. States the pain is colicky and radiates to the left lower abdomen. States she has a history of many kidney stones and this feels similar. She follows with Dr. Doan who has placed stents in the past. States she has not been able to urinate in 4 hours. Denies fever or chills. Denies chance of - Related Data Home Medications Medication Instructions Recorded Confirmed Iux-Kwlv-Kjbwr Acid 1 cap PO DAILY 10/26/21 03/08/22 [-U Capsule (formulary)] Aspirin 81 mg PO DAILY 01/02/22 03/08/22 Ferrous Sulfate [Iron (65 MG 1 tab PO DAILY 03/08/22 03/08/22 Elemental)] traMADol HCL 1 tab PO DAILY PRN 03/08/22 03/08/22 Previous Rx's Medication Instructions Recorded Cephalexin [Keflex] 500 mg PO TID 10 Days #30 cap 04/06/22 HYDROcodone/APAP 5-325MG [[place] 1 tab PO Q6HR PRN #12 tab 04/06/22 5-325] Cephalexin [Keflex] 500 mg PO Q12HR 7 Days #14 cap 05/15/24 Allergies Allergy/AdvReac Type Severity Reaction Status Date / Time ibuprofen Allergy fatigue,vom Verified 05/15/24 11:21 iting,fever Review of Systems ROS Statement: Those systems with pertinent positive or pertinent negative responses have been documented in the HPI. ROS Other: All systems not noted in ROS Statement are negative. Past Medical History Past Medical History: No Reported History Additional Past Medical History / Comment(s): kidney stones and UTI's, kindey stents in 2020 History of Any Multi-Drug Resistant Organisms: None Reported Past Surgical History: Section Additional Past Surgical History / Comment(s): C/S x 4 Past Anesthesia/Blood Transfusion Reactions: Previous Problems w/ Anesthesia, Motion Sickness, Postoperative Nausea & Vomiting (PONV) Additional Past Anesthesia/Blood Transfusion Reaction / Comment(s): (drop in blood pressure, nausea,vommiting, loss of consciousness-pt not aware of these reactions other than nausea), motion sickness as child Past Psychological History: Anxiety, Depression Smoking Status: Former smoker Past Alcohol Use History: None Reported Past Drug Use History: Marijuana - Past Family History Father Family Medical History: Coronary Artery Disease (CAD) Additional Family Medical History / Comment(s): dad at 38 from [place] Mother Family Medical History: No Reported History Additional Family Medical History / Comment(s): post hem General Exam Limitations: no limitations General appearance: alert, in no apparent distress Eye exam: Present: normal appearance, PERRL, EOMI. Absent: scleral icterus, conjunctival injection, periorbital swelling Respiratory exam: Present: normal lung sounds bilaterally. Absent: respiratory distress, wheezes, rales, rhonchi, stridor Cardiovascular Exam: Present: regular rate, normal rhythm, normal heart sounds. Absent: systolic murmur, diastolic murmur, rubs, gallop, clicks GI/Abdominal exam: Present: soft, normal bowel sounds. Absent: distended, tenderness, guarding, rebound, rigid Extremities exam: Present: normal inspection, full ROM, normal capillary refill. Absent: tenderness, pedal edema, joint swelling, calf tenderness Back exam: Present: normal inspection, full ROM. Absent: tenderness, CVA tenderness (R), CVA tenderness (L) Neurological exam: Present: alert, oriented X3 Psychiatric exam: Present: normal affect, normal mood Skin exam: Present: warm, dry, intact, normal color. Absent: rash Course Vital Signs 05/15/24 05/15/24 11:19 14:51 Temperature 97.8 F Pulse Rate 100 72 Respiratory 18 18 Rate Blood Pressure 155/85 129/93 O2 Sat by Pulse 99 100 Oximetry Medical Decision Making - Medical Decision Making Was pt. sent in by a medical professional or institution (, PA, PACKING INSPECTOR, urgent care, hospital, or care home...) When possible be specific @ -No Did you speak to anyone other than the patient for history (EMS, parent, family, police, friend...)? What history was obtained from this source @ -No Did you review nursing and triage notes (agree or disagree)? Why? @ -I reviewed and agree with nursing and triage notes Were old charts reviewed (outside hosp., previous admission, EMS record, old EKG, old radiological studies, urgent care reports/EKG's, care home records)? Report findings @ -Reviewed previous x-ray ordered by Dr. Doan which revealed many renal calculi bilaterally Differential Diagnosis (chest pain, altered mental status, abdominal pain women, abdominal pain men, vaginal bleeding, weakness, fever, dyspnea, syncope, headache, dizziness, GI bleed, back pain, seizure, CVA, palpatations, mental health, musculoskeletal)? @ -Differential Abdominal Pain Women: Appendicitis, Cholecystitis, diverticulosis, ischemic bowel, pancreatitis, hepatitis, UTI, gastroenteritis, AAA, incarcerated hernia, bowel obstruction, constipation, inflammatory bowel, hepatitis, peptic ulcer disease, splenic infarction, perforated viscus, vulvitis, ovarian torsion, PID, kidney stone, placenta abruption, this is not meant to be an all-inclusive list EKG interpreted by me (3pts min.). @ -None X-rays interpreted by me (1pt min.). @ -None done CT interpreted by me (1pt min.). @ -CT revealed 1 cm distal left ureterovesical junction stone with mild left hydronephrosis and moderate left hydro ureter U/S interpreted by me (1pt. min.). @ -None done What testing was considered but not performed or refused? (CT, X-rays, U/S, labs)? Why? @ -None What meds were considered but not given or refused? Why? @ -None Did you discuss the management of the patient with other professionals (professionals i.e. , PA, PACKING INSPECTOR, lab, RT, psych nurse, manager social work, library specialist, teacher, senior loan officer, welfare case worker)? Give summary @ -No Was smoking cessation discussed for >3mins.? @ -No Was critical care preformed (if so, how long)? @ -No Were there social determinants of health that impacted care today? How? (Homelessness, low income, unemployed, alcoholism, drug addiction, transportation, low edu. Level, literacy, decrease access to med. care, custodial, rehab)? @ -No Was there de-escalation of care discussed even if they declined (Discuss DNR or withdrawal of care, Hospice)? DNR status @ -No What co-morbidities impacted this encounter? (DM, HTN, Smoking, COPD, CAD, Cancer, CVA, ARF, Chemo, Hep., AIDS, mental health diagnosis, sleep apnea, morbid obesity)? @ -None Was patient admitted / discharged? Hospital course, mention meds given and route, prescriptions, significant lab abnormalities, going to OR and other pertinent info. @ -Patient was discharged. Patient was seen and evaluated for left flank pain x 1 day with associated dysuria and urinary urgency. Patient has extensive history of kidney stones and states this feels similar. Vital signs within normal limits, patient is afebrile and nontachycardic.. No abdominal tenderness to palpation. Patient is given IV fluids, Toradol, and Zofran. Lab work including CBC, CMP, lactic acid is unremarkable. Urine is remarkable for 128 white blood cells and [address] reveals a 1 cm distal left ureterovesical junction stone with mild left hydronephrosis and moderate left hydroureter. During reevaluation, patient reports she passed stone while urinating and is now symptom-free. Patient would like to be discharged at this time. I believe this is reasonable at this time with close follow-up with Dr. Ahumada. Prescribed Keflex for UTI. Return parameters discussed, patient is a greeable. Case was discussed with my ED attending Dr. Garcia. Patient is discharged in stable condition. Undiagnosed new problem with uncertain prognosis? @ -No Drug Therapy requiring intensive monitoring for toxicity (Heparin, Nitro, Insulin, Cardizem)? @ -No Were any procedures done? @ -No Diagnosis/symptom? @ -Left nephrolithiasis, urinary tract infection Acute, or Chronic, or Acute on Chronic? @ -Acute Uncomplicated (without systemic symptoms) or Complicated (systemic symptoms)? @ -Uncomplicated Side effects of treatment? @ -No Exacerbation, Progression, or Severe Exacerbation? @ -No Poses a threat to life or bodily function? How? (Chest pain, [place], [place], pneumonia, PE, COPD, DKA, ARF, appy, cholecystitis, CVA, Diverticulitis, Homicidal, Suicidal, threat to staff... and all critical care pts) @ -Not at this time - Lab Data Result diagrams: 05/15/24 11:56 05/15/24 11:56 Lab Results 05/15/24 05/15/24 05/15/24 Range/Units 11:56 11:56 11:56 WBC 9.2 (3.8-10.6) k/uL RBC 4.58 (3.80-5.40) m/uL Hgb 14.9 (11.4-16.0) gm/dL Hct 43.7 (34.0-46.0) % MCV 95.5 (80.0-100.0) fL MCH 32.6 (25.0-35.0) pg MCHC 34.1 (31.0-37.0) g/dL RDW 14.0 (11.5-15.5) % Plt Count 417 (150-450) k/uL MPV 8.1 Neutrophils % 75 % Lymphocytes % 18 % Monocytes % 3 % Eosinophils % 2 % Basophils % 1 % Neutrophils # 6.9 (1.3-7.7) k/uL Lymphocytes # 1.7 (1.0-4.8) k/uL Monocytes # 0.3 (0-1.0) k/uL Eosinophils # 0.2 (0-0.7) k/uL Basophils # 0.1 (0-0.2) k/uL Sodium 138 (137-145) mmol/L Potassium 4.0 (3.5-5.1) mmol/L Chloride 108 H (98-107) mmol/L Carbon Dioxide 23 (22-30) mmol/L Anion Gap 7 mmol/L BUN 12 (7-17) mg/dL Creatinine 0.92 (0.52-1.04) mg/dL Est GFR (CKD-EPI)AfAm >90 (>60 ml/min/1.73 sqM) Est GFR (CKD-EPI)NonAf 83 (>60 ml/min/1.73 sqM) Glucose 92 (74-99) mg/dL Plasma Lactic Acid Rommel (0.7-2.0) mmol/L Calcium 9.7 (8.4-10.2) mg/dL Total Bilirubin 0.7 (0.2-1.3) mg/dL AST 26 (14-36) U/L ALT 29 (4-34) U/L Alkaline Phosphatase 106 (38-126) U/L Total Protein 7.9 (6.3-8.2) g/dL Albumin 4.8 (3.5-5.0) g/dL Urine Color Light Yellow Urine Appearance Cloudy H (Clear) Urine pH 6.0 (5.0-8.0) Ur Specific [place] 1.015 (1.001-1.035) Urine Protein Trace H (Negative) Urine Glucose (UA) Negative (Negative) Urine Ketones Negative (Negative) Urine Blood Small H (Negative) Urine Nitrite Negative (Negative) Urine Bilirubin Negative (Negative) Urine Urobilinogen <2.0 (<2.0) mg/dL Ur Leukocyte Esterase Large H (Negative) Urine RBC 13 H (0-5) /hpf Urine WBC 120 H (0-5) /hpf Ur Squamous Epith Cells 8 H (0-4) /hpf Urine Bacteria Occasional H (None) /hpf Urine Mucus Rare H (None) /hpf 05/15/24 Range/Units 11:56 WBC (3.8-10.6) k/uL RBC (3.80-5.40) m/uL Hgb (11.4-16.0) gm/dL Hct (34.0-46.0) % MCV (80.0-100.0) fL MCH (25.0-35.0) pg MCHC (31.0-37.0) g/dL RDW (11.5-15.5) % Plt Count (150-450) k/uL MPV Neutrophils % % Lymphocytes % % Monocytes % % Eosinophils % % Basophils % % Neutrophils # (1.3-7.7) k/uL Lymphocytes # (1.0-4.8) k/uL Monocytes # (0-1.0) k/uL Eosinophils # (0-0.7) k/uL Basophils # (0-0.2) k/uL Sodium (137-145) mmol/L Potassium (3.5-5.1) mmol/L Chloride (98-107) mmol/L Carbon Dioxide (22-30) mmol/L Anion Gap mmol/L BUN (7-17) mg/dL Creatinine (0.52-1.04) mg/dL Est GFR (CKD-EPI)AfAm (>60 ml/min/1.73 sqM) Est GFR (CKD-EPI)NonAf (>60 ml/min/1.73 sqM) Glucose (74-99) mg/dL Plasma Lactic Acid [place] 1.4 (0.7-2.0) mmol/L Calcium (8.4-10.2) mg/dL Total Bilirubin (0.2-1.3) mg/dL AST (14-36) U/L ALT (4-34) U/L Alkaline Phosphatase (38-126) U/L Total Protein (6.3-8.2) g/dL Albumin (3.5-5.0) g/dL Urine Color Urine Appearance (Clear) Urine pH (5.0-8.0) Ur Specific [place] (1.001-1.035) Urine Protein (Negative) Urine Glucose (UA) (Negative) Urine Ketones (Negative) Urine Blood (Negative) Urine Nitrite (Negative) Urine Bilirubin (Negative) Urine Urobilinogen (<2.0) mg/dL Ur Leukocyte Esterase (Negative) Urine RBC (0-5) /hpf Urine WBC (0-5) /hpf Ur Squamous Epith Cells (0-4) /hpf Urine Bacteria (None) /hpf Urine Mucus (None) /hpf Disposition Clinical Impression: Left nephrolithiasis, Urinary tract infection Disposition: HOME SELF-CARE Condition: Stable Instructions (If sedation given, give patient instructions): Kidney Stones (ED) Additional Instructions: Take antibiotic as prescribed. Follow-up with Dr. Ahumada as discussed. Please return to the Emergency Department if symptoms worsen or any other concerns. Prescriptions: Cephalexin [Keflex] 500 mg PO Q12HR 7 Days #14 cap Is patient prescribed a controlled substance at d/c from ED?: No Referrals: Arian Rodriguez MD [Primary Care Provider] - 1-2 days Time of Disposition: 14:33
[2024-05-15] MEDS: SODIUM CHLORIDE 0.9% 1,000 ML IV STA (12:03)
[2024-05-15] MEDS: KETOROLAC 15 MG/ML 1 ML VIAL IVP STA ×2 (12:03→14:33)
[2024-05-15] MEDS: ONDANSETRON 4 MG/2 ML VIAL IVP STA (12:03)
[2024-05-15 12:28] LABS: Basophils # (A) 0.1 k/uL (0-0.2); Basophils % (A) 1 %; Eosinophils # (A) 0.2 k/uL (0-0.7); Eosinophils % (A) 2 %; HCT 43.7 % (34.0-46.0); HGB 14.9 gm/dL (11.4-16.0); Lymphocytes # (A) 1.7 k/uL (1.0-4.8); Lymphocytes % (A) 18 %; MCH 32.6 pg (25.0-35.0); MCHC 34.1 g/dL (31.0-37.0); MCV 95.5 fL (80.0-100.0); Mean Platelet Volume 8.1; Monocytes # (A) 0.3 k/uL (0-1.0); Monocytes % (A) 3 %; Neutrophils # (A) 6.9 k/uL (1.3-7.7); Neutrophils % (A) 75 %; Platelet Count 417 k/uL (150-450); RBC 4.58 m/uL (3.80-5.40); WBC 9.2 k/uL (3.8-10.6)
[2024-05-15 12:40] LABS: ALT 29 U/L (4-34); AST 26 U/L (14-36); African American GFR (CKD) >90 (>60 ml/min/1.73 sqM); Albumin 4.8 g/dL (3.5-5.0); Alkaline Phosphatase 106 U/L (38-126); Anion Gap 7 mmol/L; Blood Urea Nitrogen 12 mg/dL (7-17); Calcium 9.7 mg/dL (8.4-10.2); Carbon Dioxide 23 mmol/L (22-30); Chloride 108 mmol/L (98-107); Glucose 92 mg/dL (74-99); Non-African American GFR(CKD) 83 (>60 ml/min/1.73 sqM); Sodium 138 mmol/L (137-145); Total Bilirubin 0.7 mg/dL (0.2-1.3); Total Protein 7.9 g/dL (6.3-8.2)
--- NOTE | 2024-05-15 13:02 | CT ---
EXAMINATION TYPE: CT abdomen pelvis wo con DATE OF EXAM: 05/15/2024 COMPARISON: 11/26/2022 INDICATION: left flank pain DLP: 556 mGycm, Automated exposure control for dose reduction was used. CONTRAST: 0 mL of Isovue 300. Study performed without Oral Contrast TECHNIQUE: Axial images were obtained from above the diaphragm to the pubic rami in the axial plane a t 5 mm thick sections. Reconstructed images are reviewed on the computer in the coronal plane. FINDINGS: Limited CT sections are obtained the lung bases. The lung bases are clear. CT ABDOMEN: Liver: Normal Spleen: Normal Pancreas: Normal Adrenal glands: The adrenal glands are normal. Gallbladder: Normal Kidneys: Extensive calcifications are at the cortical medullary junction of the bilateral kidneys.. M ild left hydronephrosis is present. Yzud-on-kypavuqr left hydroureter is present. This extends to the distal left ureter just at the ureterovesical junction. There is a 1.0 cm obstructing distal tuft ur eteral stone. No cysts are present. Aorta: Vascular calcification is within the aorta. Inferior vena cava: Normal. CT PELVIS: Minimal fluid is present, likely physiologic. Loops of bowel within the abdomen and pelvis are normal. This study is without oral contrast limi ting evaluation. Appendix: Normal as visualized. Urinary bladder: Normal Genitourinary structures: Uterus is unremarkable. Left adnexal cyst is present. Lungs are evident. Osseous structures: No suspicious lytic or sclerotic lesions. IMPRESSION: 1. A 1.0 cm distal left ureter vesicle junction stone with mild left hydronephrosis and moderate lef t hydroureter. 2. Extensive bilateral renal calcifications.
[2024-05-15 13:15] LABS: Appearance,Urine Cloudy (Clear); Bacteria,Urine Occasional /hpf; Bilirubin,Urine Negative (Negative); Blood,Urine Small (Negative); Color,Urine Light Yellow; Glucose,Urine (UA) Negative (Negative); Ketones,Urine Negative (Negative); Leukocyte Esterase,Urine Large (Negative); Mucus,Urine Rare /hpf; Nitrite,Urine Negative (Negative); Protein,Urine Trace (Negative); RBC,Urine 13 /hpf (0-5); Specific Gravity,Urine 1.015 (1.001-1.035); Squamous Epithelial Cell,Urine 8 /hpf (0-4); Urobilinogen,Urine <2.0 mg/dL (<2.0); WBC,Urine 120 /hpf (0-5)
[2024-05-15 14:53] VITALS: BP 129/93; PULSE 72
== END 2024-05-15 14:54 | disposition home or self-care (01) ==
LOC: EC 11:08
DX: N39.0 Urinary tract infection, site not specified
CPT/HCPCS: 36415; 51798; 74176; 80053; 81001; 83605; 85025; 87077; 87086; 87186; 96361; 96374; 96375; 99284

== ENCOUNTER 2024-05-17 13:44 | Inpatient (IN) | payer OTHER ==
--- NOTE | 2024-05-17 14:17 | ED ---
Abdominal Pain HPI - General Source: patient, RN notes reviewed Mode of arrival: ambulatory Limitations: no limitations <Jayde Ogden - Last Filed: 05/17/24 14:17> <Tatiana Cunningham - Last Filed: 05/17/24 18:18> - General Chief Complaint: Abdominal Pain Stated Complaint: N/V Time Seen by Provider: 05/17/24 14:15 - History of Present Illness Initial Comments: 33-year-old female presented to ER with a chief complaint of abdominal pain and fevers. Patient was seen here on Friday due to a kidney stone. Patient pa ssed kidney stone while in the ER. Patient was discharged with Keflex and Zofran. Patient states Friday night she started to have nausea and vomiting. She states on Friday she slept all day only to get up to vomit. She also reports feeling feverish but has not taken her temperature. She was reporting left flank pain with radiation to her left lower quadrant. She admits to hematuria. History of a sponge kidney and frequently gets stones. Denies any constipation, diarrhea, chest pain, shortness of breath or peripheral edema. (Jayde Ogden) - Related Data Home Medications Medication Instructions Recorded Confirmed Xap-Kztb-Watjf Acid 1 cap PO DAILY 10/26/21 03/08/22 [-U Capsule (formulary)] Aspirin 81 mg PO DAILY 01/02/22 03/08/22 Ferrous Sulfate [Iron (65 MG 1 tab PO DAILY 03/08/22 03/08/22 Elemental)] traMADol HCL 1 tab PO DAILY PRN 03/08/22 03/08/22 Previous Rx's Medication Instructions Recorded Cephalexin [Keflex] 500 mg PO TID 10 Days #30 cap 04/06/22 HYDROcodone/APAP 5-325MG [[place] 1 tab PO Q6HR PRN #12 tab 04/06/22 5-325] Cephalexin [Keflex] 500 mg PO Q12HR 7 Days #14 cap 05/15/24 Allergies Allergy/AdvReac Type Severity Reaction Status Date / Time ibuprofen Allergy fatigue,vom Verified 05/15/24 11:21 iting,fever Review of Systems ROS Other: All systems not noted in ROS Statement are negative. <Jayde Ogden - Last Filed: 05/17/24 14:17> ROS Other: All systems not noted in ROS Statement are negative. <Tatiana Cunningham - Last Filed: 05/17/24 18:18> ROS Statement: Those systems with pertinent positive or pertinent negative responses have been documented in the HPI. Past Medical History Past Medical History: No Reported History Additional Past Medical History / Comment(s): kidney stones and UTI's, kindey stents in 2020 History of Any Multi-Drug Resistant Organisms: None Reported Past Surgical History: Section Additional Past Surgical History / Comment(s): C/S x 4 Past Anesthesia/Blood Transfusion Reactions: Previous Problems w/ Anesthesia, Motion Sickness, Postoperative Nausea & Vomiting (PONV) Additional Past Anesthesia/Blood Transfusion Reaction / Comment(s): (drop in blood pressure, nausea,vommiting, loss of consciousness-pt not aware of these reactions other than nausea), motion sickness as child Past Psychological History: Anxiety, Depression Smoking Status: Former smoker Past Alcohol Use History: None Reported Past Drug Use History: Marijuana - Past Family History Father Family Medical History: Coronary Artery Disease (CAD) Additional Family Medical History / Comment(s): dad at 38 from [place] Mother Family Medical History: No Reported History Additional Family Medical History / Comment(s): post hem <Jayde Ogden - Last Filed: 05/17/24 14:17> General Exam Limitations: no limitations General appearance: alert, in no apparent distress Respiratory exam: Present: normal lung sounds bilaterally. Absent: respiratory distress, wheezes, rales, rhonchi, stridor Cardiovascular Exam: Present: regular rate, normal rhythm, normal heart sounds. Absent: systolic murmur, diastolic murmur, rubs, gallop, clicks GI/Abdominal exam: Present: soft, tenderness (LLQ), normal bowel sounds Extremities exam: Present: normal inspection, full ROM, normal capillary refill. Absent: tenderness, pedal edema, joint swelling, calf tenderness Back exam: Present: CVA tenderness (L) Neurological exam: Present: alert, oriented X3, CN II-XII intact Skin exam: Present: warm, dry, intact, normal color. Absent: rash <Jayde Ogden - Last Filed: 05/17/24 14:17> Course Vital Signs 05/17/24 05/17/24 05/17/24 13:48 15:05 16:06 Temperature 100.0 F H 99.1 F 98.2 F Pulse Rate 100 Respiratory 20 Rate Blood Pressure 128/77 O2 Sat by Pulse 100 Oximetry Medical Decision Making <MelviJayde - Last Filed: 05/17/24 14:17> - Lab Data Result diagrams: 05/17/24 14:29 05/17/24 14:29 <Tatiana Cunningham - Last Filed: 05/17/24 18:18> - Medical Decision Making Was pt. sent in by a medical professional or institution (, PA, AIR POLLUTION COMPLIANCE INSPECTOR, urgent care, hospital, or half-way...) When possible be specific @ -No Did you speak to anyone other than the patient for history (EMS, parent, family, police, friend...)? What history was obtained from this source @ -No Did you review nursing and triage notes (agree or disagree)? Why? @ -I reviewed and agree with nursing and triage notes Were old charts reviewed (outside hosp., previous admission, EMS record, old EKG, old radiological studies, urgent care reports/EKG's, half-way records)? Report findings @ -I reviewed ER visit from 05-15-2024 patient seen for kidney stone. Stone was passed during the ER. Patient discharged with Zofran and Keflex. Differential Diagnosis (chest pain, altered mental status, abdominal pain women, abdominal pain men, vaginal bleeding, weakness, fever, dyspnea, syncope, headache, dizziness, GI bleed, back pain, seizure, CVA, palpatations, mental health, musculoskeletal)? @ -Differential Abdominal Pain Women: Appendicitis, Cholecystitis, diverticulosis, ischemic bowel, pancreatitis, hepatitis, UTI, gastroenteritis, A AA, incarcerated hernia, bowel obstruction, constipation, inflammatory bowel, hepatitis, peptic ulcer disease, splenic infarction, perforated viscus, vulvitis, ovarian torsion, PID, kidney stone, placenta abruption, this is not meant to be an all-inclusive list EKG interpreted by me (3pts min.). @ -None X-rays interpreted by me (1pt min.). @ -None done CT interpreted by me (1pt min.). @ -None done U/S interpreted by me (1pt. min.). @ -None done What testing was considered but not performed or refused? (CT, X-rays, U/S, labs)? Why? @ -None What meds were considered but not given or refused? Why? @ -None Did you discuss the management of the patient with other professionals (professionals i.e. RAI Brower, AIR POLLUTION COMPLIANCE INSPECTOR, lab, RT, psych nurse, social sciences lecturer, band sawyer, teacher, maritime officer, business case analyst)? Give summary @ -No Was smoking cessation discussed for >3mins.? @ -No Was critical care preformed (if so, how long)? @ -No Were there social determinants of health that impacted care today? How? (Homelessness, low income, unemployed, alcoholism, drug addiction, transportation, low edu. Level, literacy, decrease access to med. care, usp, rehab)? @ -No Was there de-escalation of care discussed even if they declined (Discuss DNR or withdrawal of care, Hospice)? DNR status @ -No What co-morbidities impacted this encounter? (DM, HTN, Smoking, COPD, CAD, Cancer, CVA, ARF, Chemo, Hep., AIDS, mental health diagnosis, sleep apnea, morbid obesity)? @ -None Was patient admitted / discharged? Hospital course, mention meds given and route, prescriptions, significant lab abnormalities, going to OR and other pertinent info. @ -33-year-old female presented to the ER with a chief complaint of abdominal pain and nausea. History and physical exam completed. Patient febrile on arri tomás at 100 F. Vitals otherwise within normal limits. Patient in no signs of acute distress and nontoxic-appearing. Laboratory studies obtained and pending. Patient given IV fluids, zofran and po tylneol for symptoms control. Patient signed out to Tatiana Cunningham PA-C pending results. (Jayde Ogden) Was pt. sent in by a medical professional or institution (RAI Brower, AIR POLLUTION COMPLIANCE INSPECTOR, urgent care, hospital, or half-way...) When possible be specific @ -No Did you speak to anyone other than the patient for history (EMS, parent, family, police, friend...)? What history was obtained from this source @ -No Did you review nursing and triage notes (agree or disagree)? Why? @ -I reviewed and agree with nursing and triage notes Were old charts reviewed (outside hosp., previous admission, EMS record, old EKG, old radiological studies, urgent care reports/EKG's, half-way records)? Report findings @ -No old charts were reviewed Differential Diagnosis (chest pain, altered mental status, abdominal pain women, abdominal pain men, vaginal bleeding, weakness, fever, dyspnea, syncope, headache, dizziness, GI bleed, back pain, seizure, CVA, palpatations, mental health, musculoskeletal)? @ -Differential Abdominal Pain Women: Appendicitis, Cholecystitis, diverticulosis, ischemic bowel, pancreatitis, hepatitis, UTI, gastroenteritis, AAA, incarcerated hernia, bowel obstruction, constipation, inflammatory bowel, hepatitis, peptic ulcer disease, splenic infarction, perforated viscus, vulvitis, ovarian torsion, PID, kidney stone, placenta abruption, this is not meant to be an all-inclusive list EKG interpreted by me (3pts min.). @ -None X-rays interpreted by me (1pt min.). @ -None done CT interpreted by me (1pt min.). @ -None done U/S interpreted by me (1pt. min.). @ -None done What testing was considered but not performed or refused? (CT, X-rays, U/S, labs)? Why? @ -CT not obtained due to patient was seen in ER 3 days ago for kidney stone, CT was performed at this time What meds were considered but not given or refused? Why? @ -None Did you discuss the management of the patient with other professionals (professionals i.e. , PA, AIR POLLUTION COMPLIANCE INSPECTOR, lab, RT, psych nurse, social sciences lecturer, band sawyer, teacher, maritime officer, business case analyst)? Give summary @ -I spoke with Dr. Chacon who accepts admission at this time for left pyelonephritis with sepsis Was smoking cessation discussed for >3mins.? @ -No Was critical care preformed (if so, how long)? @ -No Were there social determinants of health that impacted care today? How? (Homelessness, low income, unemployed, alcoholism, drug addiction, transportation, low edu. Level, literacy, decrease access to med. care, usp, rehab)? @ -No Was there de-escalation of care discussed even if they declined (Discuss DNR or withdrawal of care, Hospice)? DNR status @ -No What co-morbidities impacted this encounter? (DM, HTN, Smoking, COPD, CAD, Cancer, CVA, ARF, Chemo, Hep., AIDS, mental health diagnosis, sleep apnea, morbid obesity)? @ -None Was patient admitted / discharged? Hospital course, mention meds given and route, prescriptions, significant lab abnormalities, going to OR and other pertinent info. @ -Patient was admitted. Patient was seen and evaluated for left flank pain x 2 days with vomiting and fever. Patient was recently seen in ER 3 days ago where kidney stone was diagnosed. Patient passed kidney stone while in the ER, however patient was discharged on Keflex due to bacteria in the urine. Symptoms have been worsening. Vital signs are initially remarkable for a temperature of 100.0, heart rate 100 bpm. Patient has left CVA tenderness upon examination. Patient was given IV fluids, Zofran, Tylenol, and Toradol for symptoms. Lab work remarkable for white blood cell count of 13.6. Lactic acid unremarkable. There are 57 white blood cells in the urine. Patient met sepsis criteria at 1700. Blood cultures were taken. Patient was started on IV fluids and given 1 g Rocephin. I spoke with Dr. Chacon who accepts admission at this time for left pyelonephritis with sepsis. Case was discussed with my ED attending Dr. Garcia. Patient is agreeable to plan. Undiagnosed new problem with uncertain prognosis? @ -No Drug Therapy requiring intensive monitoring for toxicity (Heparin, Nitro, Insulin, Cardizem)? @ -No Were any procedures done? @ -No Diagnosis/symptom? @ -Left pyelonephritis, sepsis Acute, or Chronic, or Acute on Chronic? @ -Acute Uncomplicated (without systemic symptoms) or Complicated (systemic symptoms)? @ -Complicated Side effects of treatment? @ -No Exacerbation, Progression, or Severe Exacerbation? @ -No Poses a threat to life or bodily function? How? (Chest pain, [place], [place], pneumonia, PE, COPD, DKA, ARF, appy, cholecystitis, CVA, Diverticulitis, Homicidal, Suicidal, threat to staff... and all critical care pts) @ -Yes sepsis (Tatiana Cunningham) - Lab Data Lab Results 05/17/24 05/17/24 05/17/24 Range/Units 14:29 14:29 14:29 WBC 13.6 H (3.8-10.6) k/uL RBC 4.38 (3.80-5.40) m/uL Hgb 13.5 (11.4-16.0) gm/dL Hct 41.0 (34.0-46.0) % MCV 93.7 (80.0-100.0) fL MCH 30.9 (25.0-35.0) pg MCHC 33.0 (31.0-37.0) g/dL RDW 13.7 (11.5-15.5) % Plt Count 414 (150-450) k/uL MPV 7.6 Neutrophils % 89 % Lymphocytes % 6 % Monocytes % 3 % Eosinophils % 1 % Basophils % 1 % Neutrophils # 12.1 H (1.3-7.7) k/uL Lymphocytes # 0.8 L (1.0-4.8) k/uL Monocytes # 0.4 (0-1.0) k/uL Eosinophils # 0.2 (0-0.7) k/uL Basophils # 0.1 (0-0.2) k/uL Sodium 133 L (137-145) mmol/L Potassium 3.3 L (3.5-5.1) mmol/L Chloride 103 (98-107) mmol/L Carbon Dioxide 19 L (22-30) mmol/L Anion Gap 11 mmol/L BUN 8 (7-17) mg/dL Creatinine 0.87 (0.52-1.04) mg/dL Est GFR (CKD-EPI)AfAm >90 (>60 ml/min/1.73 sqM) Est GFR (CKD-EPI)NonAf 89 (>60 ml/min/1.73 sqM) Glucose 117 H (74-99) mg/dL Plasma Lactic Acid [place] 1.5 (0.7-2.0) mmol/L Calcium 9.3 (8.4-10.2) mg/dL Total Bilirubin 1.1 (0.2-1.3) mg/dL AST 59 H (14-36) U/L ALT 60 H (4-34) U/L Alkaline Phosphatase 131 H (38-126) U/L Total Protein 7.4 (6.3-8.2) g/dL Albumin 4.4 (3.5-5.0) g/dL Urine Color Urine Appearance (Clear) Urine pH (5.0-8.0) Ur Specific [place] (1.001-1.035) Urine Protein (Negative) Urine Glucose (UA) (Negative) Urine Ketones (Negative) Urine Blood (Negative) Urine Nitrite (Negative) Urine Bilirubin (Negative) Urine Urobilinogen (<2.0) mg/dL Ur Leukocyte Esterase (Negative) Urine RBC (0-5) /hpf Urine WBC (0-5) /hpf Ur Squamous Epith Cells (0-4) /hpf Urine Mucus (None) /hpf Influenza Type A (PCR) (Not Detectd) Influenza Type B (PCR) (Not Detectd) RSV (PCR) (Not Detectd) SARS-CoV-2 (PCR) (Not Detectd) 05/17/24 05/17/24 Range/Units 14:33 15:38 WBC (3.8-10.6) k/uL RBC (3.80-5.40) m/uL Hgb (11.4-16.0) gm/dL Hct (34.0-46.0) % MCV (80.0-100.0) fL MCH (25.0-35.0) pg MCHC (31.0-37.0) g/dL RDW (11.5-15.5) % Plt Count (150-450) k/uL MPV Neutrophils % % Lymphocytes % % Monocytes % % Eosinophils % % Basophils % % Neutrophils # (1.3-7.7) k/uL Lymphocytes # (1.0-4.8) k/uL Monocytes # (0-1.0) k/uL Eosinophils # (0-0.7) k/uL Basophils # (0-0.2) k/uL Sodium (137-145) mmol/L Potassium (3.5-5.1) mmol/L Chloride (98-107) mmol/L Carbon Dioxide (22-30) mmol/L Anion Gap mmol/L BUN (7-17) mg/dL Creatinine (0.52-1.04) mg/dL Est GFR (CKD-EPI)AfAm (>60 ml/min/1.73 sqM) Est GFR (CKD-EPI)NonAf (>60 ml/min/1.73 sqM) Glucose (74-99) mg/dL Plasma Lactic Acid [place] (0.7-2.0) mmol/L Calcium (8.4-10.2) mg/dL Total Bilirubin (0.2-1.3) mg/dL AST (14-36) U/L ALT (4-34) U/L Alkaline Phosphatase (38-126) U/L Total Protein (6.3-8.2) g/dL Albumin (3.5-5.0) g/dL Urine Color Yellow Urine Appearance Cloudy H (Clear) Urine pH 6.5 (5.0-8.0) Ur Specific [place] 1.018 (1.001-1.035) Urine Protein 1+ H (Negative) Urine Glucose (UA) Negative (Negative) Urine Ketones 3+ H (Negative) Urine Blood Small H (Negative) Urine Nitrite Negative (Negative) Urine Bilirubin Negative (Negative) Urine Urobilinogen 6.0 (<2.0) mg/dL Ur Leukocyte Esterase Large H (Negative) Urine RBC 9 H (0-5) /hpf Urine WBC 57 H (0-5) /hpf Ur Squamous Epith Cells 5 H (0-4) /hpf Urine Mucus Rare H (None) /hpf Influenza Type A (PCR) Not Detected (Not Detectd) Influenza Type B (PCR) Not Detected (Not Detectd) RSV (PCR) Not Detected (Not Detectd) SARS-CoV-2 (PCR) Not Detected (Not Detectd) Disposition <Jayde Ogden - Last Filed: 05/17/24 14:17> Time of Disposition: 18:18 <Tatiana Cunningham - Last Filed: 05/17/24 18:18> Clinical Impression: Pyelonephritis of left kidney, Sepsis Disposition: ADMITTED IP TO THIS HOSP Condition: Stable Referrals: Arian Rodriguez MD [Primary Care Provider] - 1-2 days
[2024-05-17] MEDS: ACETAMINOPHEN TAB 325 MG TAB PO STA (14:20)
[2024-05-17] MEDS: ONDANSETRON 4 MG/2 ML VIAL IVP STA (14:21)
[2024-05-17] MEDS: SODIUM CHLORIDE 0.9% 1,000 ML IV STA ×2 (14:21→17:30)
[2024-05-17 14:41] LABS: Basophils # (A) 0.1 k/uL (0-0.2); Basophils % (A) 1 %; Eosinophils # (A) 0.2 k/uL (0-0.7); Eosinophils % (A) 1 %; HGB 13.5 gm/dL (11.4-16.0); Lymphocytes # (A) 0.8 k/uL (1.0-4.8); Lymphocytes % (A) 6 %; MCH 30.9 pg (25.0-35.0); MCV 93.7 fL (80.0-100.0); Mean Platelet Volume 7.6; Monocytes # (A) 0.4 k/uL (0-1.0); Monocytes % (A) 3 %; Neutrophils # (A) 12.1 k/uL (1.3-7.7); Neutrophils % (A) 89 %; Platelet Count 414 k/uL (150-450); RBC 4.38 m/uL (3.80-5.40); RDW 13.7 % (11.5-15.5); WBC 13.6 k/uL (3.8-10.6)
[2024-05-17 15:02] LABS: ALT 60 U/L (4-34); AST 59 U/L (14-36); African American GFR (CKD) >90 (>60 ml/min/1.73 sqM); Albumin 4.4 g/dL (3.5-5.0); Alkaline Phosphatase 131 U/L (38-126); Anion Gap 11 mmol/L; Blood Urea Nitrogen 8 mg/dL (7-17); Calcium 9.3 mg/dL (8.4-10.2); Carbon Dioxide 19 mmol/L (22-30); Chloride 103 mmol/L (98-107); Glucose 117 mg/dL (74-99); Non-African American GFR(CKD) 89 (>60 ml/min/1.73 sqM); Potassium 3.3 mmol/L (3.5-5.1); Sodium 133 mmol/L (137-145); Total Bilirubin 1.1 mg/dL (0.2-1.3); Total Protein 7.4 g/dL (6.3-8.2)
[2024-05-17] MEDS: KETOROLAC 15 MG/ML 1 ML VIAL IVP STA (15:59)
[2024-05-17 16:18] LABS: Appearance,Urine Cloudy (Clear); Bilirubin,Urine Negative (Negative); Blood,Urine Small (Negative); Color,Urine Yellow; Glucose,Urine (UA) Negative (Negative); Ketones,Urine 3+ (Negative); Leukocyte Esterase,Urine Large (Negative); Mucus,Urine Rare /hpf; Nitrite,Urine Negative (Negative); PH, Urine 6.5 (5.0-8.0); Protein,Urine 1+ (Negative); RBC,Urine 9 /hpf (0-5); Specific Gravity,Urine 1.018 (1.001-1.035); Squamous Epithelial Cell,Urine 5 /hpf (0-4); WBC,Urine 57 /hpf (0-5)
[2024-05-17] MEDS: cefTRIAXone IN SWFI 1,000 MG/10 ML SYRINGE IVP STA (17:29)
[2024-05-17] MEDS ORDERED: NALOXONE 0.4 MG/ML 1 ML VIAL IV PRN (18:11)
[2024-05-17] MEDS: SODIUM CHLORIDE 0.9% 1,000 ML IV SCH (18:14)
[2024-05-17] MEDS: ONDANSETRON 4 MG/2 ML VIAL IVP PRN (20:14)
[2024-05-17] MEDS: ACETAMINOPHEN TAB 325 MG TAB PO PRN (21:35)
[2024-05-17] MEDS: KETOROLAC 15 MG/ML 1 ML VIAL IVP PRN (21:37)
[2024-05-17] MEDS: MORPHINE SULFATE 4 MG/ML SYRINGE IV PRN (23:42)
[2024-05-18 10:27] LABS: BUN/Creat Ratio 10.88 Ratio (12.00-20.00); Blood Urea Nitrogen 8.7 mg/dL (9.0-27.0); Calcium 8.1 mg/dL (8.7-10.3); Carbon Dioxide 19.4 mmol/L (21.6-31.8); Chloride 105 mmol/L (96-109); Glucose 100 mg/dL (70-110); Potassium 3.2 mmol/L (3.5-5.5); Sodium 137 mmol/L (135-145)
[2024-05-18] MEDS: POTASSIUM CHLORIDE ER 20 MEQ TAB.ER PO SCH (15:37)
--- NOTE | 2024-05-18 20:27 | PN ---
PROGRESS NOTE ROOM: 620 CHIEF COMPLAINT: Left-sided pyelonephritis. HISTORY OF PRESENT ILLNESS: This lady is doing well. Pain is better. IV antibiotics continue. She is hypokalemic and this will be addressed. PHYSICAL EXAMINATION: CHEST: Clear. CARDIAC: Normal. ABDOMEN: Soft, nontender. IMPRESSION: 1. Left-sided pyelonephritis. 2. Status post left ureteral calculus. 3. Hypokalemia. PLAN: KCl 20 mEq orally 3 times a day and follow for the next 24 hours and possibly discharge. MMODL / IJN: [id number] /
--- NOTE | 2024-05-18 20:33 | HP ---
HISTORY AND PHYSICAL CHIEF COMPLAINT: Flank pain and fever. HISTORY OF PRESENT ILLNESS: This is the first known admission for this 33-year-old female. She apparently developed left-sided ureteral calculus and was treated in the emergency room and sent home to pass the stone. When she became febrile and developed increasing left flank pain, she came back ended up with pyelonephritis. REVIEW OF SYSTEMS: She denies any headaches, chest pain, etc. Past medical history, family history, personal and social histories are all otherwise unremarkable. ALLERGIES: She is allergic to Wellbutrin. PHYSICAL EXAMINATION: VITAL SIGNS: Normal. Temperature is 100. GENERAL: She appeared to be uncomfortable, but no acute distress. SKIN: Color was normal. Skin is warm and dry. HEAD, EARS, EYES, NOSE, MOUTH, THROAT: Normal. ABDOMEN: Left flank was tender. The abdomen is slightly tender throughout. Bowel sounds are present. EXTREMITIES: Normal. NEUROLOGIC: She is intact. She is admitted to the hospital with the diagnosis of left-sided pyelonephritis. PLAN: 1. Bedrest. 2. IV fluids. 3. IV antibiotics. MMODL / IJN: [id number] /
[2024-05-19 08:24] VITALS: RESP 16; TEMP 98.1
[2024-05-19] MEDS ORDERED: POTASSIUM CHLORIDE ER 20 MEQ TAB.ER PO SCH (16:00)
[2024-05-19 16:45] VITALS: BP 116/76; PULSE 80
--- NOTE | 2024-05-19 20:04 | P.GSCN ---
History of Present Illness Consult date: 05/19/24 Reason for Consult: Left ureteral stone, UTI History of present illness: This is a 34-year-old female history of medullary sponge kidney, recurrent UTIs and kidney stones. Presented to the ER on May 12 with intractable left flank pain, she underwent a CT at that time that showed evidence of a 1 cm left-sided distal stone, she subsequently passed the stone at home, following stone passage she noticed dysuria with fevers and chills and subsequently presented to the hospital and was admitted for pyelonephritis. Since being admitted to the hospital indicated the fevers and the dysuria have significantly improved. Denies any flank pain or gross hematuria or any voiding symptoms at this time. Urine culture is pending. Review of Systems - Constitutional Reports chills, Reports fever - EENT Ears, nose, mouth and throat: Denies dysphagia - Respiratory Denies cough, Denies 7 - Gastrointestinal Reports as per HPI - Integumentary Denies rash, Denies unusual bruising Past Medical History Past Medical History: No Reported History Additional Past Medical History / Comment(s): kidney stones and UTI's, kindey stents in 2020 History of Any Multi-Drug Resistant Organisms: None Reported Past Surgical History: Section Additional Past Surgical History / Comment(s): C/S x 4 Past Anesthesia/Blood Transfusion Reactions: Previous Problems w/ Anesthesia, Motion Sickness, Postoperative Nausea & Vomiting (PONV) Additional Past Anesthesia/Blood Transfusion Reaction / Comm: (drop in blood pressure, nausea,vommiting, loss of consciousness-pt not aware of these reactions other than nausea), motion sickness as child Past Psychological History: Anxiety, Depression Additional Psychological History / Comment(s): no current tx Smoking Status: Former smoker Past Alcohol Use History: None Reported Past Drug Use History: Marijuana Additional Drug Use History / Comment(s): "couple joints a day" - Past Family History Father Family Medical History: Coronary Artery Disease (CAD) Additional Family Medical History / Comment(s): dad at 38 from [place] Mother Family Medical History: No Reported History Additional Family Medical History / Comment(s): post hem Medications and Allergies Home Medications Medication Instructions Recorded Confirmed Type Amoxic-Pot Clav 875-125Mg 1 each PO Q12HR 10 Days #20 tab 05/19/24 Rx [Augmentin 875-125] Allergies Allergy/AdvReac Type Severity Reaction Status Date / Time ibuprofen Allergy fatigue,vom Verified 05/17/24 18:59 iting,fever Surgical - Exam Vital Signs Temp Pulse Resp BP Pulse Ox 100.0 F H 100 20 128/77 100 05/17/24 13:48 05/17/24 13:48 05/17/24 13:48 05/17/24 13:48 05/17/24 13:48 - General no distress, no pain - Eyes normal ocular movement, no pale - ENT normal nares, normal mucosa - Respiratory normal expansion, normal respiratory effort - Abdomen Abdomen: soft, non tender, no distended - Psychiatric oriented to time, oriented to person, oriented to place Results - Labs 05/17/24 14:29 05/19/24 12:20 Microbiology - Last 24 Hours (Table) 05/17/24 17:24 Blood Culture - Preliminary Blood 05/17/24 15:38 Urine Culture - Preliminary Urine,Voided Diabetes panel 05/19/24 Range/Units 12:20 Potassium 3.6 (3.5-5.1) mmol/L Pituitary panel 05/19/24 Range/Units 12:20 Potassium 3.6 (3.5-5.1) mmol/L Adrenal panel 05/19/24 Range/Units 12:20 Potassium 3.6 (3.5-5.1) mmol/L Assessment and Plan Assessment: This is a 33-year-old female passage, symptoms have significantly improved. Culture is pending. From urology standpoint she is okay for discharge home with p.o. antibiotics., I did discuss with her given the recurrent kidney stones and the medullar sponge kidney she will benefit from a 24-hour urine study as an outpatient.
[2024-05-19] MEDS ORDERED: AMOXIC-POT CLAV 875-125MG 1 EACH TAB PO SCH (21:00)
--- NOTE | 2024-05-21 23:37 | DS ---
DISCHARGE SUMMARY She was in [address] in the Mother Baby Unit when she was discharged. CHIEF COMPLAINT: Fever, chills, and left flank pain. HISTORY OF PRESENT ILLNESS AND PHYSICAL EXAMINATION: Details of this lady's history and physical can be found in the initial workup. LABORATORY STUDIES: While she was in the hospital, she had laboratory studies, details of which can be found in the laboratory section of her chart. COURSE IN THE HOSPITAL: After admission, she was placed on bedrest, started on intravenous fluids and IV antibiotics. Temperature came down. She did better. She was stable and it was felt that she could be discharged home on the fourth and she will be sent home on Augmentin 875 twice a day and followup in the office. FINAL DIAGNOSES: 1. Left-sided pyelonephritis. 2. Status post left ureteral calculus. OPERATIONS: None. CONSULTATION: None. CONDITION: She is improved. VANESSA / ANASTASIIA: [id number] /
== END 2024-05-19 17:05 | disposition home or self-care (01) | DRG 465 ==
LOC: EC 13:44 → 6NMEDSUR 17:33 → OBSVTOIN 17:34 → 6NMEDSUR 21:01 → 4FBP 05-18 16:43
PROVIDERS: ADMIT Family Medicine; ATTEND Family Medicine
DX: N20.1 Calculus of ureter (principal); Z87.442 Personal history of urinary calculi; N12 Tubulo-interstitial nephritis, not specified as acute or chronic; Q61.5 Medullary cystic kidney; Z87.440 Personal history of urinary (tract) infections; Z87.891 Personal history of nicotine dependence; F41.9 Anxiety disorder, unspecified; F32.A Depression, unspecified; Z88.6 Allergy status to analgesic agent; Z11.52 Encounter for screening for COVID-19; Z79.82 Long term (current) use of aspirin; E87.6 Hypokalemia
CPT/HCPCS: 36415; 80048; 80053; 81001; 83605; 84132; 85025; 87040; 87077; 87086; 87186; 87636; 96361; 96374; 96375; 99285